=== PATIENT | female | born 1935 | race Caucasian/White ===

== ENCOUNTER 2017-11-03 11:06 | Inpatient (IN) ==
[2017-11-03] MEDS ORDERED: Orphenadrine 60 MG/2 ML VIAL IM ONE (11:14)
[2017-11-03] MEDS ORDERED: methylPREDNISolone 125 MG/2 ML VIAL IVP ONE (11:14)
--- NOTE | 2017-11-03 11:18 | Emergency Department Note ---
Disposition Clinical Impression: Lumbar stenosis, Lumbar disc disease Disposition: Admitted As Inpatient Condition: Good Referrals: Addi Laguerre [Primary Care Provider] - Forms: ED Satisfaction Letter Back Pain HPI - General Chief Complaint: ED Back Pain/Injury Stated Complaint: LUMBAR PAIN Time Seen by Provider: 11/03/17 11:09 Source: patient Mode of arrival: ambulatory Limitations: no limitations Nursing Notes Reviewed: Yes Vital Signs Reviewed: Yes - History of Present Illness HPI Narrative: Patient presents to the ED with the chief complaint of low back pain. Patient states his pain has been ongoing for years. States that she will get an episode of to a year where she will be bending over and feels something slipped and have some pain for a few weeks and then would go away. She reports it has been especially worse over the last week. No specific injury or trauma. She denies any weakness, but states is very difficult for her to walk. She does live at home alone and has been unable to care for herself recently. No urinary or bowel incontinence but she has had some constipation. Denies any headache, neck pain, changes in vision, fever, chills, chest pain, shortness of breath, pain, nausea, vomiting or diarrhea. She denies any numbness or weakness in her extremities. She does have some tingling in her feet at times. She does state that the pain is mainly lower lumbar sacral and does sometimes radiate to her buttocks, but does not extend down her leg - Related Data Home Medications Medication Instructions Recorded Confirmed Allopurinol [Zyloprim] 300 mg PO DAILY 11/03/17 11/03/17 Calcitriol 0.5 mcg PO DAILY 11/03/17 11/03/17 Furosemide [Lasix] 20 mg PO DAILY 11/03/17 11/03/17 HYDROcodone/Acet 5/325 mg [[place] 1 tab PO Q6H PRN 11/03/17 11/03/17 5-325 mg] Insulin ASPART [Novolog Flexpen] 15 unit SQ TID 11/03/17 11/03/17 Insulin DETEMIR [Levemir Flextouch] 47 unit SQ QPM 11/03/17 11/03/17 Metoprolol XL (24 HR) Succ [Toprol 50 mg PO BID 11/03/17 11/03/17 XL] Warfarin [Coumadin] 2.5 mg PO SUMOTUWETHSA 11/03/17 11/03/17 Warfarin [Coumadin] 5 mg PO FR 11/03/17 11/03/17 amLODIPine [Norvasc] 5 mg PO DAILY 11/03/17 11/03/17 Allergies Allergy/AdvReac Type Severity Reaction Status Date / Time Penicillins Allergy Rash Verified 11/03/17 11:17 Review of Systems: As reviewed in the HPI. All other systems reviewed are negative or normal. Past Medical History - Past Medical History Attestation: Yes The following information was validated with the patient. Source: patient Medical history: Reports: atrial fibrillation, diabetes, hypertension, renal disease Psychiatric history: Reports: no psych history - Social History Smoking Status: Never smoker Smokeless Tobacco Status: No Alcohol use: Reports: none Drug use: Reports: none Physical Exam - General Limitations: no limitations General appearance: alert, in no apparent distress - Head Head exam: atraumatic, normocephalic, normal inspection - Neck Neck exam: Present: normal inspection, full ROM, trachea midline - Chest Chest inspection: Present: normal inspection, symmetric chest wall rise - Respiratory Respiratory exam: Present: normal lung sounds bilaterally - Cardiovascular Cardiovascular exam: Present: regular rate, irregular rhythm, normal heart sounds - Abdominal Exam Abdominal exam: Present: soft, Non-Tender. Absent: tenderness, distention, guarding, rebound, rigidity - Extremities Exam Extremities exam: Present: normal inspection, full ROM. Absent: tenderness, pedal edema - Back Exam Back exam: Present: tenderness (mid/lower lumbar, some L paraspinous muscle tenderness but does have midline tenderness as well ), muscle spasm, vertebral tenderness, other (DTR's intact, sensation normal, antalgic gait ). Absent: normal inspection, full ROM, straight leg raise (R), straight leg raise (L) - Neurological Exam Neurological exam: Present: alert, oriented X3 - Psychiatric Psychiatric exam: Present: normal affect, normal mood - Skin Skin exam: Present: warm, dry, intact, normal color Course Course Narrative: Patient and the low back pain. No acute neurological abnormalities, but patient is elderly and has no history of trauma to the area. We will start off with a CT scan of lumbar spine and if unremarkable, We will proceed to MRI. - Reevaluation(s) Reevaluation #1: Patient's CT scan showed some lumbar stenosis and possible herniated disc. We ordered an MRI. Stat but were told it would take 6-8 hours to complete this. Patient cannot ambulate on her own and does live at home alone, so we will admit her to the hospitalist service for MRI and pain control. Vital Signs Temperature 97.4 F L 11/03/17 11:07 Pulse Rate 73 11/03/17 11:07 Respiratory Rate 16 11/03/17 11:07 Blood Pressure 142/95 11/03/17 11:07 O2 Sat by Pulse Oximetry 95 11/03/17 11:07 Temperature 97.4 F L 11/03/17 11:07 Pulse Rate 76 11/03/17 13:57 Respiratory Rate 16 11/03/17 13:57 Blood Pressure 144/77 11/03/17 13:57 O2 Sat by Pulse Oximetry 97 11/03/17 13:57 Oxygen Delivery Oxygen Delivery Room Air Back Pain/Injury - Medical Records Medical records reviewed: Yes I reviewed the patient's medical records. - Lab Data Lab results reviewed: Yes I reviewed the patient's lab results. Result diagrams: 11/03/17 11:24 11/03/17 11:24 Lab Results 11/03/17 11/03/17 11/03/17 Range/Units 11:24 11:24 12:55 WBC 7.9 (4.3-11.1) K/mcL RBC 4.94 (3.82-4.97) M/mcL Hgb 15.6 H (11.5-15.4) g/dL Hct 47.7 H (35.3-44.9) % MCV 96.6 (83.0-100.0) fL MCH 31.6 (28.0-33.3) pg MCHC 32.7 (31.6-35.5) g/dL RDW 15.6 H (11.5-14.5) % Plt Count 229 (140-400) K/mcL MPV 10.8 (9.4-12.4) fL Immature Gran % 0.3 (0-4) % Seg Neutrophils % 63.7 % Lymphocytes % 27.7 % Monocytes % 7.5 % Eosinophils % 0.5 % Basophils % 0.3 % Neutrophils # 5.0 (1.6-8.9) K/mcL Lymphocytes # 2.2 (0.6-4.6) K/mcL Monocytes # 0.6 (0.0-1.3) K/mcL Eosinophils # 0.0 (0.0-0.6) K/mcL Basophils # 0.0 (0.0-0.2) K/mcL Sodium 136 (136-145) mEq/L Potassium 3.9 (3.5-5.1) mEq/L Chloride 104 (98-107) mEq/L Carbon Dioxide 27 (23-29) mEq/L BUN 30 H (8-23) mg/dL Creatinine 1.67 H (0.60-1.20) mg/dL Est GFR ( Amer) 36 L (> 60) Est GFR (Non-Af Amer) 29 L (> 60) BUN/Creatinine Ratio 18 (6-26) Glucose 57 L (70-105) mg/dL Calculated Osmolality 286 (280-300) Calcium 10.0 (8.6-10.3) mg/dL Total Bilirubin 0.9 (0.3-1.0) mg/dL Direct Bilirubin 0.2 (0.0-0.2) mg/dL Indirect Bilirubin 0.7 (0.0-1.2) mg/dL AST 17 (13-39) Units/L ALT 11 (7-52) Units/L Alkaline Phosphatase 94 (34-104) Units/L Serum Total Protein 6.4 (6.4-8.9) g/dL Albumin 3.9 (3.5-5.7) g/dL Globulin 2.5 (2.4-3.5) g/dL Albumin/Globulin Ratio 1.6 (1.1-2.2) Urine Color Yellow (Yellow) Urine Clarity Cloudy A (Clear) Urine pH 5.5 (5.0-8.0) pH Units Ur Specific [place] 1.020 (1.010-1.025) Urine Protein Negative (Neg-Trace) mg/dL Urine Glucose (UA) Normal (Normal) mg/dL Urine Ketones Negative (Negative) mg/dL Urine Blood Negative (Negative) Urine Nitrite Negative (Negative) Urine Bilirubin Negative (Negative) Urine Urobilinogen Normal (Normal) mg/dL Ur Leukocyte Esterase Moderate H (Negative) Urine Microscopic RBC 0-3 (0-3) per hpf Urine Microscopic WBC 50-100 H (0-3) per hpf Ur Squamous Epith Cells Many H (None-Few) per lpf Urine Bacteria Few (None-Few) per hpf Hyaline Casts None Seen (None-Few) per lpf Ur Culture Indicated? NO. A (NO) - Radiology Data Radiology results reviewed: Yes I reviewed the patient's radiology results. - EKG Data EKG attestation: Yes I reviewed and interpreted this EKG. EKG results narrative: A. fib, rate 65, QRS 89, QTC 372, normal axis, no acute ischemic changes
[2017-11-03 11:37] LABS: Basophils % 0.3 %; Eosinophils % 0.5 %; Hematocrit 47.7 % (35.3-44.9); Hemoglobin 15.6 g/dL (11.5-15.4); Immature Granulocytes % 0.3 % (0-4); Lymphocytes # 2.2 K/mcL (0.6-4.6); Lymphocytes % 27.7 %; Mean Corpuscular HGB Conc 32.7 g/dL (31.6-35.5); Mean Corpuscular Hemoglobin 31.6 pg (28.0-33.3); Mean Corpuscular Volume 96.6 fL (83.0-100.0); Mean Platelet Volume 10.8 fL (9.4-12.4); Monocytes # 0.6 K/mcL (0.0-1.3); Monocytes % 7.5 %; Platelet Count 229 K/mcL (140-400); Red Blood Count 4.94 M/mcL (3.82-4.97); Red Cell Distribution Width 15.6 % (11.5-14.5); Segmented Neutrophils % 63.7 %
[2017-11-03 11:57] LABS: Albumin 3.9 g/dL (3.5-5.7); Albumin/Globulin Ratio 1.6 (1.1-2.2); Bilirubin,Direct 0.2 mg/dL (0.0-0.2); Bilirubin,Indirect 0.7 mg/dL (0.0-1.2); Bilirubin,Total 0.9 mg/dL (0.3-1.0); Globulin 2.5 g/dL (2.4-3.5); Potassium 3.9 mEq/L (3.5-5.1); Total Protein 6.4 g/dL (6.4-8.9)
[2017-11-03 13:06] LABS: Bilirubin,Urine Negative (Negative); Blood,Urine Negative (Negative); Clarity,Urine Cloudy (Clear); Color,Urine Yellow (Yellow); Glucose,Urine (UA) Normal (Normal); Ketones,Urine Negative (Negative); Leukocyte Esterase,Urine Moderate (Negative); Nitrite,Urine Negative (Negative); PH,Urine 5.5 pH Units (5.0-8.0); Protein,Urine Negative (Neg-Trace); Urobilinogen,Urine Normal (Normal)
[2017-11-03 13:08] LABS: Bacteria,Urine Few per hpf (None-Few); Hyaline Casts,Urine None Seen per lpf (None-Few); RBC,Urine 0-3 per hpf (0-3); Squamous Epithelial Cell,Urine Many per lpf (None-Few); WBC,Urine 50-100 per hpf (0-3)
--- NOTE | 2017-11-03 14:00 | Emergency Department Note ---
Disposition Clinical Impression: Lumbar stenosis, Lumbar disc disease Disposition: Admitted As Inpatient Condition: Good General Adult HPI - General Chief complaint: ED Back Pain/Injury Stated complaint: LUMBAR PAIN Time Seen by Provider: 11/03/17 11:09 Source: patient Mode of arrival: ambulatory Limitations: no limitations Nursing Notes Reviewed: Yes Vital Signs Reviewed: Yes - History of Present Illness Pain Scale: 2 - Related Data Home Medications Medication Instructions Recorded Confirmed Allopurinol [Zyloprim] 300 mg PO DAILY 11/03/17 11/03/17 Calcitriol 0.5 mcg PO DAILY 11/03/17 11/03/17 Ergocalciferol (VITAMIN D2) 50,000 unit PO 2XW 11/03/17 11/03/17 [Vitamin D2] Furosemide [Lasix] 20 mg PO DAILY 11/03/17 11/03/17 HYDROcodone/Acet 5/325 mg [[place] 1 tab PO Q6H PRN 11/03/17 11/03/17 5-325 mg] Insulin ASPART [Novolog Flexpen] 15 unit SQ TID 11/03/17 11/03/17 Insulin DETEMIR [Levemir Flextouch] 47 unit SQ QPM 11/03/17 11/03/17 Metoprolol XL (24 HR) Succ [Toprol 50 mg PO BID 11/03/17 11/03/17 XL] Warfarin [Coumadin] 2.5 mg PO SUMOTUWETHSA 11/03/17 11/03/17 Warfarin [Coumadin] 5 mg PO FR 11/03/17 11/03/17 amLODIPine [Norvasc] 5 mg PO DAILY 11/03/17 11/03/17 Allergies Allergy/AdvReac Type Severity Reaction Status Date / Time Penicillins Allergy Rash Verified 11/03/17 11:17 Past Medical History - Past Medical History Medical history: Reports: atrial fibrillation, diabetes, hypertension, renal disease Psychiatric history: Reports: no psych history - Social History Smoking Status: Never smoker Smokeless Tobacco Status: No Alcohol use: Reports: none Drug use: Reports: none Physical Exam - General Limitations: no limitations General appearance: alert, in no apparent distress Course Vital Signs Temperature 97.4 F L 11/03/17 11:07 Pulse Rate 73 11/03/17 11:07 Respiratory Rate 16 11/03/17 11:07 Blood Pressure 142/95 11/03/17 11:07 O2 Sat by Pulse Oximetry 95 11/03/17 11:07 Temperature 98.2 F 11/03/17 18:38 Pulse Rate 81 11/03/17 18:38 Respiratory Rate 16 11/03/17 18:38 Blood Pressure 148/81 11/03/17 18:38 O2 Sat by Pulse Oximetry 96 11/03/17 18:38 Oxygen Delivery Oxygen Delivery Room Air Medical Decision Making - MDM Narrative Medical decision making narrative: Lumbar Spine CT 11/03/17 11:14 IMPRESSION: 1. No acute abnormality identified of the lumbar spine. 2. Degenerative changes contribute to moderate spinal canal stenosis at L3-L4 with mild stenosis at L4-L5. D/ / Juan Reynaga MD / Juan Reynaga MD Interpreting Provider: Juan Reynaga MD 1400 hrs.: With the stenosis she said we talked about doing an MRI spoke with camera technician they said that would probably not get done in the shift see if we can bring her into the hospital and have them do it as an inpatient procedure with potential evaluation by spine. PAging hospitalist at this time. - Lab Data Result diagrams: 11/03/17 11:24 11/03/17 11:24 Lab Results 11/03/17 11/03/17 11/03/17 Range/Units 11:24 11:24 12:55 WBC 7.9 (4.3-11.1) K/mcL RBC 4.94 (3.82-4.97) M/mcL Hgb 15.6 H (11.5-15.4) g/dL Hct 47.7 H (35.3-44.9) % MCV 96.6 (83.0-100.0) fL MCH 31.6 (28.0-33.3) pg MCHC 32.7 (31.6-35.5) g/dL RDW 15.6 H (11.5-14.5) % Plt Count 229 (140-400) K/mcL MPV 10.8 (9.4-12.4) fL Immature Gran % 0.3 (0-4) % Seg Neutrophils % 63.7 % Lymphocytes % 27.7 % Monocytes % 7.5 % Eosinophils % 0.5 % Basophils % 0.3 % Neutrophils # 5.0 (1.6-8.9) K/mcL Lymphocytes # 2.2 (0.6-4.6) K/mcL Monocytes # 0.6 (0.0-1.3) K/mcL Eosinophils # 0.0 (0.0-0.6) K/mcL Basophils # 0.0 (0.0-0.2) K/mcL Sodium 136 (136-145) mEq/L Potassium 3.9 (3.5-5.1) mEq/L Chloride 104 (98-107) mEq/L Carbon Dioxide 27 (23-29) mEq/L BUN 30 H (8-23) mg/dL Creatinine 1.67 H (0.60-1.20) mg/dL Est GFR ( Amer) 36 L (> 60) Est GFR (Non-Af Amer) 29 L (> 60) BUN/Creatinine Ratio 18 (6-26) Glucose 57 L (70-105) mg/dL Calculated Osmolality 286 (280-300) Calcium 10.0 (8.6-10.3) mg/dL Total Bilirubin 0.9 (0.3-1.0) mg/dL Direct Bilirubin 0.2 (0.0-0.2) mg/dL Indirect Bilirubin 0.7 (0.0-1.2) mg/dL AST 17 (13-39) Units/L ALT 11 (7-52) Units/L Alkaline Phosphatase 94 (34-104) Units/L Serum Total Protein 6.4 (6.4-8.9) g/dL Albumin 3.9 (3.5-5.7) g/dL Globulin 2.5 (2.4-3.5) g/dL Albumin/Globulin Ratio 1.6 (1.1-2.2) Urine Color Yellow (Yellow) Urine Clarity Cloudy A (Clear) Urine pH 5.5 (5.0-8.0) pH Units Ur Specific [place] 1.020 (1.010-1.025) Urine Protein Negative (Neg-Trace) mg/dL Urine Glucose (UA) Normal (Normal) mg/dL Urine Ketones Negative (Negative) mg/dL Urine Blood Negative (Negative) Urine Nitrite Negative (Negative) Urine Bilirubin Negative (Negative) Urine Urobilinogen Normal (Normal) mg/dL Ur Leukocyte Esterase Moderate H (Negative) Urine Microscopic RBC 0-3 (0-3) per hpf Urine Microscopic WBC 50-100 H (0-3) per hpf Ur Squamous Epith Cells Many H (None-Few) per lpf Urine Bacteria Few (None-Few) per hpf Hyaline Casts None Seen (None-Few) per lpf Ur Culture Indicated? NO. A (NO) Attestation Statement - Attestation Attestation: I examined this patient and my medical decision-making was reviewed with the Resident Physician. I agree with the documented findings, disposition and treatment plan as described except to the extent set forth below. Patient seen and evaluated by Dr. Stallings and myself, I agree with his evaluation and treatment plan, supervised the care the patient's stay. Patient does not stay with lower lumbar back pain. She said no acute injury no history of falls. She has had imaging studies in the past which led to some possible stenosis. She denies any change in bowel or bladder habits with incontinence but has had some changes on her overall neurologic exam. DTRs are intact. Return to CT her spine and then determine whether she needs MRI or not. We will check lab work also. She is in agreement with this plan.
--- NOTE | 2017-11-03 17:08 | Electrocardiograph Report ---
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
[2017-11-03] MEDS ORDERED: Naloxone 0.4 MG/ML INJ IVP PRN (17:28)
--- NOTE | 2017-11-03 17:30 | Internal Med History&Physical ---
Date of Encounter: 11/03/17 Time of Encounter: 17:27 Internal Medicine - H&P: HPI Admitted From: Home Plans for Post Hospital Care: Transfer Inp Rehab Fac History of present illness: Ms. Velasco is a 82 year old female Patient With history of A. fib on Coumadin, diabetes mellitus with last A1c 7.5 has been on insulin, hypertension, CAD stage III brought to ER by family with acute on chronic low back pain. Patient has chronic low back pain but intermittently and less frequently 4-6 year but for last 2 month it has been progressively worse especially when it she bent over. This Friday she bent over to pick some stuff from the floor and then her back got caught in the pain and now she is not able to ambulate for last 3 days. She rated her pain 10 x 10, nonradiating to lower extremity. She denies any urinary or bowel incontinence, lower extremity weakness, tingling and numbness. She also denies fall but very difficult to walk after this acute event. She does live at home alone and has been unable to care for herself recently. has some constipation. Denies any headache, neck pain, changes in vision, fever , chills, chest pain, shortness of breath, pain, nausea, vomiting or diarrhea. Past Med Surg Social Fam HX - Past Medical History Medical history: atrial fibrillation, diabetes, hypertension, renal disease Psychiatric history: no psych history - Social History Smoking Status: Never smoker Smokeless Tobacco Status: No Alcohol use: none Drug use: none Internal Medicine - H&P: Meds Allopurinol [Zyloprim] 300 mg PO DAILY 11/03/17 [History] Calcitriol 0.5 mcg PO DAILY 11/03/17 [History] Ergocalciferol (VITAMIN D2) [Vitamin D2] 50,000 unit PO 2XW 11/03/17 [History] Furosemide [Lasix] 20 mg PO DAILY 11/03/17 [History] HYDROcodone/Acet 5/325 mg [[place] 5-325 mg] 1 tab PO Q6H PRN 11/03/17 [History] Insulin ASPART [Novolog Flexpen] 15 unit SQ TID 11/03/17 [History] Insulin DETEMIR [Levemir Flextouch] 47 unit SQ QPM 11/03/17 [History] Metoprolol XL (24 HR) Succ [Toprol XL] 50 mg PO BID 11/03/17 [History] Warfarin [Coumadin] 2.5 mg PO SUMOTUWETHSA 11/03/17 [History] Warfarin [Coumadin] 5 mg PO FR 11/03/17 [History] amLODIPine [Norvasc] 5 mg PO DAILY 11/03/17 [History] 3 Allergy/AdvReac Type Severity Reaction Status Date / Time Penicillins Allergy Rash Verified 11/03/17 11:17 All Systems PM: A 10-system review of systems was performed and is negative for pertinent findings except as documented above in the HPI. - Constitutional Vitals: Temp Pulse Resp BP Pulse Ox 97.9 F 82 16 153/77 91 11/03/17 16:53 11/03/17 16:53 11/03/17 16:53 11/03/17 16:53 11/03/17 16:53 Exam: General appearance: Moderate distress due to pain. Family at bedside., A&O X 3 Head exam: Atraumatic Eye exam: EOMI, PERRLA ENT exam: Moist oral mucosa Neck nontender, supple Respiratory exam: Clear to auscultation bilaterally Cardiovascular exam: Regular rate and rhythm, no systolic murmur Abdominal exam: Soft, nontender, nondistended, positive bowel sounds Extremities exam: No calf tenderness, no pedal edema Present: Spine-limited range of motion in all directions. Left SLR positive. Muscle spasm and tenderness in lumbosacral area. Skin-no rash, warm, dry, intact Neurological exam: Alert, awake, oriented 3, CN II-XII intact, no focal deficits. No facial droop. Normal speech. Not able to walk due to pain Internal Med - H&P Results - Labs CBC & Chem 7: 11/03/17 11:24 11/03/17 11:24 - Assessment and plan (1) Low back pain associated with a spinal disorder other than radiculopathy or spinal stenosis Current Visit: Yes Status: Acute Assessment and plan: Acute on chronic back pain with muscle spasm. CT lumbar with spinal stenosis. MRI spine order but result is awaited. Symptomatic treatment with pain medicine narcotics, muscle relaxants. Consulted his spine surgeon Dr. Lake. Fall precaution (2) Hypertension Current Visit: Yes Status: Acute Assessment and plan: Close monitoring. Continue home medicine. Qualifiers: Qualified Code(s): I10 - Essential (primary) hypertension (3) Afib Current Visit: No Status: Acute Assessment and plan: RVR. Continue home medicine. INR is stat order. Will continue Coumadin. If any plan for surgery then will hold the Coumadin. Qualifiers: Atrial fibrillation type: chronic Qualified Code(s): I48.2 - Chronic atrial fibrillation (4) ESTRELLITA (acute kidney injury) Current Visit: Yes Status: Acute Assessment and plan: Acute on CKG. Slight raise in creatinine level. Close monitoring of BMP and avoid nephrotoxic drugs. (5) DVT prophylaxis Current Visit: Yes Status: Acute Assessment and plan: SCDs. Coumadin (6) Diabetes mellitus Current Visit: Yes Status: Acute Assessment and plan: Accu-Chek sliding scale insulin, diabetic diet. Qualifiers: Diabetes mellitus type: type 2 Diabetes mellitus fdc insulin use: with long term care pharmacist use Diabetes mellitus complication status: with neurologic complications Qualified Code(s): E11.40 - Type 2 diabetes mellitus with diabetic neuropathy, unspecified; Z79.4 - prison (current) use of insulin; Z79.4 - long term care pharmacist (current) use of insulin; Z79.4 - prison (current) use of insulin; Z79.4 - prison (current) use of insulin - Time Spent With Patient Total time spent is greater than 50% in coordination of care (as documented) at patient's floor/unit and/or counseling patient: 25 - 35 minutes
[2017-11-03] MEDS ORDERED: tiZANidine 4 MG TABLET PO PRN (17:43)
[2017-11-03] MEDS ORDERED: Sennosides/Docusate Sodium TABLET PO PRN (17:47)
[2017-11-03] MEDS ORDERED: D5% in Water 1,000 ML IVC PRN (17:56)
[2017-11-03] MEDS ORDERED: Dextrose Gel 15 GM/37.5 ML TUBE PO PRN ×2 (17:56)
[2017-11-03] MEDS ORDERED: *HR* Dextrose 50 % in Water (Syg) 50 ML SYRINGE IVP PRN (17:56)
[2017-11-03] MEDS ORDERED: Insulin LISPRO 300 UNITS/3 ML VIAL SQ SCH (18:00)
[2017-11-03 18:15] LABS: INR 3.6; Prothrombin Time 40.4 Seconds (9.4-12.1)
[2017-11-03] MEDS: Cholecalciferol (D-3) 1,000 UNIT TABLET PO SCH (18:47)
[2017-11-03 19:24] LABS: Estimated Average Glucose 160 mg/dl; Hemoglobin A1C 7.2 %
[2017-11-03] MEDS: Metoprolol XL (24 HR) Succ 50 MG TAB.ER.24H PO SCH (20:10)
[2017-11-03] MEDS: Insulin DETEMIR 100 UNIT/ML X5UNITS SQ SCH (20:11)
[2017-11-03] MEDS ORDERED: Warfarin perPT PO PRN (20:27)
[2017-11-03] MEDS: Insulin LISPRO 300 UNITS/3 ML VIAL SQ SCH (21:58)
[2017-11-03] MEDS: *HR* OxyCODONE/APAP 5/325 TABLET PO PRN (23:34)
[2017-11-04 05:18] LABS: Hemoglobin 15.9 g/dL (11.5-15.4); Immature Granulocytes % 0.3 % (0-4); Lymphocytes # 1.1 K/mcL (0.6-4.6); Lymphocytes % 15.2 %; Mean Corpuscular HGB Conc 33.1 g/dL (31.6-35.5); Mean Corpuscular Hemoglobin 31.7 pg (28.0-33.3); Mean Corpuscular Volume 95.6 fL (83.0-100.0); Monocytes % 0.3 %; Neutrophils # 5.8 K/mcL (1.6-8.9); Platelet Count 230 K/mcL (140-400); Red Blood Count 5.02 M/mcL (3.82-4.97); Red Cell Distribution Width 15.3 % (11.5-14.5); Segmented Neutrophils % 84.2 %
[2017-11-04 05:26] LABS: Prothrombin Time 33.3 Seconds (9.4-12.1)
[2017-11-04 05:39] LABS: Potassium 4.2 mEq/L (3.5-5.1)
[2017-11-04] MEDS: Metoprolol XL (24 HR) Succ 50 MG TAB.ER.24H PO SCH ×2 (08:07→20:50)
[2017-11-04] MEDS: Furosemide 20 MG TABLET PO SCH (08:07)
[2017-11-04] MEDS: Insulin LISPRO 300 UNITS/3 ML VIAL SQ SCH ×7 (08:07→20:50)
[2017-11-04] MEDS: Cholecalciferol (D-3) 1,000 UNIT TABLET PO SCH (08:07)
[2017-11-04] MEDS: amLODIPine 5 MG TABLET PO SCH (08:07)
--- NOTE | 2017-11-04 10:05 | Internal Med Progress Note ---
<Adri Zarate - Last Filed: 11/04/17 17:21> Date of Encounter: 11/04/17 - Assessment and plan (1) Afib Current Visit: No Status: Acute Qualifiers: Atrial fibrillation type: chronic Qualified Code(s): I48.2 - Chronic atrial fibrillation (2) Low back pain associated with a spinal disorder other than radiculopathy or spinal stenosis Current Visit: Yes Status: Acute (3) Hypertension Current Visit: Yes Status: Acute Qualifiers: Qualified Code(s): I10 - Essential (primary) hypertension (4) DVT prophylaxis Current Visit: Yes Status: Acute (5) ESTRELLITA (acute kidney injury) Current Visit: Yes Status: Acute (6) Diabetes mellitus Current Visit: Yes Status: Acute Qualifiers: Diabetes mellitus type: type 2 Diabetes mellitus penitentiary insulin use: with middle or intermediate school principal use Diabetes mellitus complication status: with neurologic complications Qualified Code(s): E11.40 - Type 2 diabetes mellitus with diabetic neuropathy, unspecified; Z79.4 - [facility] (current) use of insulin; Z79.4 - [facility] (current) use of insulin; Z79.4 - [facility] (current) use of insulin; Z79.4 - intermodal dispatcher (current) use of insulin - Time Spent With Patient Total time spent is greater than 50% in coordination of care (as documented) at patient's floor/unit and/or counseling patient: - Constitutional Vitals: Temp Pulse Resp BP Pulse Ox 97.5 F L 59 18 128/77 97 11/04/17 14:00 11/04/17 14:00 11/04/17 14:00 11/04/17 14:00 11/04/17 14:00 Internal Medicine: Result - Labs CBC & Chem 7: 11/04/17 04:43 11/04/17 04:43 Labs: Short CBC 11/04/17 Range/Units 04:43 WBC 6.9 (4.3-11.1) K/mcL Hgb 15.9 H (11.5-15.4) g/dL Hct 48.0 H (35.3-44.9) % Plt Count 230 (140-400) K/mcL Neutrophils # 5.8 (1.6-8.9) K/mcL BMP 11/04/17 04:43 Sodium 133 L Potassium 4.2 Chloride 101 Carbon Dioxide 23 BUN 36 H Creatinine 1.81 H Glucose 351 H Calcium 10.0 - ABG Interpretation ABG results: PT/INR, D-dimer PT 33.3 Seconds (9.4-12.1) H 11/04/17 04:43 Consult Discharge Plan - Plan Referrals: Addi Laguerre [Primary Care Provider] - - Attending Attestation I performed a history and physical examination of the patient and discussed his/ her management with the resident. I reviewed the residents note and agree with the documented findings and plan of care. <Laila Moran - Last Filed: 11/04/17 21:34> Date of Encounter: 11/04/17 Time of Encounter: 09:50 - Assessment and plan (1) Low back pain associated with a spinal disorder other than radiculopathy or spinal stenosis Current Visit: Yes Status: Acute Assessment and plan: -Acute on chronic back pain with muscle spasm. - CT lumbar with spinal stenosis. MRI spine order but result is awaited. - Symptomatic treatment with pain medicine narcotics, muscle relaxants. -Consulted his spine surgeon Dr. Lake who is evaluated and is pursuing conservative management. Recommends aggressive PT/OT while inpatient. - Fall precaution (2) Afib Current Visit: Yes Status: Chronic Assessment and plan: Rate controlled in 60-70s Home coumadin, INR 3.0 Continue hhome meds. Qualifiers: Atrial fibrillation type: chronic Qualified Code(s): I48.2 - Chronic atrial fibrillation (3) Hypertension Current Visit: Yes Status: Chronic Assessment and plan: Close monitoring. Continue home medicine. 128/77 Qualifiers: Hypertension type: essential hypertension Qualified Code(s): I10 - Essential (primary) hypertension (4) ESTRELLITA (acute kidney injury) Current Visit: Yes Status: Acute Assessment and plan: - Acute on CKD. - Slight raise in creatinine level, most recently 1.81. Baseline near 1.5-1.7 - Close monitoring of BMP and avoid nephrotoxic drugs. (5) Diabetes mellitus Current Visit: Yes Status: Chronic Assessment and plan: Accu-Chek sliding scale insulin, diabetic diet. BS of 351 a1c of 7.2% on 11/03/17 Qualifiers: Diabetes mellitus type: type 2 Diabetes mellitus penitentiary insulin use: with middle or intermediate school principal use Diabetes mellitus complication status: with neurologic complications Diabetes mellitus complication detail: with unspecified neuropathy Qualified Code(s): E11.40 - Type 2 diabetes mellitus with diabetic neuropathy, unspecified; Z79.4 - intermodal dispatcher (current) use of insulin; Z79.4 - intermodal dispatcher (current) use of insulin; Z79.4 - [facility] (current) use of insulin; Z79.4 - intermodal dispatcher (current) use of insulin (6) DVT prophylaxis Current Visit: Yes Status: Acute Assessment and plan: SCDs. Coumadin, therapeutic. - Time Spent With Patient Total time spent is greater than 50% in coordination of care (as documented) at patient's floor/unit and/or counseling patient: 25 - 35 minutes - Subjective Interval history: Patient seen and examined at bedside this morning. Shes states that she feels a little better this morning. She is still having some back pain but it has improved since presentation. No other complaints. Denies nausea, vomiting, fevers, chills, chest pain, SOB. - Constitutional Vitals: Temp Pulse Resp BP Pulse Ox 97.5 F L 60 16 152/79 97 11/04/17 07:26 11/04/17 07:26 11/04/17 07:26 11/04/17 07:26 11/04/17 07:26 General appearance: Present: A&O X 3, no acute distress - Head Head exam: Present: atraumatic, normal inspection, normocephalic - ENT ENT exam: Present: mucous membranes moist, normal exam - Respiratory Respiratory exam: Present: CTAB. Absent: rales, respiratory distress, rhonchi, wheezes - Cardiovascular Cardiovascular exam: Present: RRR, +S1, +S2. Absent: diastolic murmur - GI/Abdominal GI/Abdominal exam: Present: soft. Absent: distended, tenderness - Extremities Exam Extremities exam: Present: normal inspection, warm. Absent: pedal edema - Back Exam Back exam: Present: normal inspection. Absent: muscle spasm - Neurological Exam Neurological exam: Present: oriented X3, no focal deficits, strengths equal and symetr throughout. Absent: speech deficit - Psychiatric Psychiatric exam: Present: normal affect, normal mood Internal Medicine: Result - Labs CBC & Chem 7: 11/04/17 04:43 11/04/17 04:43 Labs: Short CBC 11/04/17 Range/Units 04:43 WBC 6.9 (4.3-11.1) K/mcL Hgb 15.9 H (11.5-15.4) g/dL Hct 48.0 H (35.3-44.9) % Plt Count 230 (140-400) K/mcL Neutrophils # 5.8 (1.6-8.9) K/mcL BMP 11/04/17 04:43 Sodium 133 L Potassium 4.2 Chloride 101 Carbon Dioxide 23 BUN 36 H Creatinine 1.81 H Glucose 351 H Calcium 10.0 - ABG Interpretation ABG results: PT/INR, D-dimer PT 33.3 Seconds (9.4-12.1) H 11/04/17 04:43
[2017-11-04] MEDS: *HR* OxyCODONE/APAP 5/325 TABLET PO PRN ×2 (10:09→21:00)
--- NOTE | 2017-11-04 15:38 | Spinal Consult Note ---
Date of Encounter: 11/04/17 Time of Encounter: 12:36 Assessment and Plan (1) Lumbar stenosis Current Visit: Yes Status: Acute She is lying comfortably in bed in mild distress secondary to back pain. Afebrile vital signs stable. She is neurovascularly intact with regard to her bilateral lower extremities. She has negative straight leg raise. She fires all lower extremity motor groups with good strength. Her hips move symmetrically. She has no clonus. There are no pathologic reflexes. She has no significant tenderness to palpation of the spinous processes in the lumbar spine. MRI of the lumbar spine reveals multilevel degenerative changes. There is areas of disc bulges with mild multilevel stenosis seen. There is no fractures or malalignment seen. Impression: 1) lumbar spondylosis 2) lumbar stenosis 3) acute exacerbation of back pain Plan: She has no acute surgical indications. I suggested in-house formal physical therapy and low back program to continue as an outpatient basis. She is to continue with analgesics per the hospitalist service. I have specified course strengthening and lower extremity strengthening as well as modalities for her physical therapy/rehabilitation. She should follow-up in the [facility] with Dr. Self or Eulogio for outpatient rehabilitation program. She may consider lumbar epidural steroid injections as an outpatient at that time in consultation. The patient is amenable to the plan and will proceed. Qualifiers: Neurogenic claudication status: without neurogenic claudication Qualified Code(s): M48.061 - Spinal stenosis, lumbar region without neurogenic claudication History of Present Illness Chief complaint: Back pain HPI: Ms. Velasco is a 82 year old female Who has a several year history of intermittent exacerbations and remissions of severe back pain. Her recent episode happened several days ago it where she felt severe mid back and bilateral posterior buttock pain which interfered with her ability to walk secondary to pain. She denies radicular symptoms. She rates the pain a 9 on a pain scale the time of admission. She is brought to the emergency department for evaluated and admitted for pain control and management. She denies any fevers or chills, radicular symptoms and lower extremities, or bowel bladder symptomatology. We are asked to see regarding potential treatments for her condition. Past Med Surg Social Fam HX - Past Medical History Medical history: atrial fibrillation, diabetes, hypertension, renal disease Psychiatric history: no psych history - Social History Smoking Status: Never smoker Smokeless Tobacco Status: No Alcohol use: none Drug use: none - Family History Mother History Unknown: Yes Medications and Allergies Allopurinol [Zyloprim] 300 mg PO DAILY 11/03/17 [History] Calcitriol 0.5 mcg PO DAILY 11/03/17 [History] Ergocalciferol (VITAMIN D2) [Vitamin D2] 50,000 unit PO 2XW 11/03/17 [History] Furosemide [Lasix] 20 mg PO DAILY 11/03/17 [History] HYDROcodone/Acet 5/325 mg [[place] 5-325 mg] 1 tab PO Q6H PRN 11/03/17 [History] Insulin ASPART [Novolog Flexpen] 15 unit SQ TID 11/03/17 [History] Insulin DETEMIR [Levemir Flextouch] 47 unit SQ QPM 11/03/17 [History] Metoprolol XL (24 HR) Succ [Toprol XL] 50 mg PO BID 11/03/17 [History] Warfarin [Coumadin] 2.5 mg PO SUMOTUWETHSA 11/03/17 [History] Warfarin [Coumadin] 5 mg PO FR 11/03/17 [History] amLODIPine [Norvasc] 5 mg PO DAILY 11/03/17 [History] 3 Allergy/AdvReac Type Severity Reaction Status Date / Time Penicillins Allergy Rash Verified 11/03/17 11:17 Results - Labs Result Diagrams: 11/04/17 04:43 11/04/17 04:43 Labs: Abnormal lab results RBC 5.02 M/mcL (3.82-4.97) H 11/04/17 04:43 Hgb 15.9 g/dL (11.5-15.4) H 11/04/17 04:43 Hct 48.0 % (35.3-44.9) H 11/04/17 04:43 RDW 15.3 % (11.5-14.5) H 11/04/17 04:43 PT 33.3 Seconds (9.4-12.1) H 11/04/17 04:43 Sodium 133 mEq/L (136-145) L 11/04/17 04:43 BUN 36 mg/dL (8-23) H 11/04/17 04:43 Creatinine 1.81 mg/dL (0.60-1.20) H 11/04/17 04:43 Est GFR ( Amer) 32 (> 60) L 11/04/17 04:43 Est GFR (Non-Af Amer) 27 (> 60) L 11/04/17 04:43 Glucose 351 mg/dL (70-105) H 11/04/17 04:43 POC Glucose 333 mg/dL (70-99) H 11/04/17 10:50 Hemoglobin A1c 7.2 % (-5.6) H 11/03/17 11:24 Urine Clarity Cloudy (Clear) A 11/03/17 12:55 Ur Leukocyte Esterase Moderate (Negative) H 11/03/17 12:55 Urine Microscopic WBC 50-100 per hpf (0-3) H 11/03/17 12:55 Ur Squamous Epith Cells Many per lpf (None-Few) H 11/03/17 12:55 Ur Culture Indicated? NO. (NO) A 11/03/17 12:55 H & H 11/04/17 Range/Units 04:43 Hgb 15.9 H (11.5-15.4) g/dL Hct 48.0 H (35.3-44.9) % All other labs normal. Consult Discharge Plan - Plan Referrals: Addi Laguerre [Primary Care Provider] -
[2017-11-04] MEDS ORDERED: *HR* Warfarin 2.5 MG TABLET PO ONE (18:00)
[2017-11-04] MEDS: Insulin DETEMIR 100 UNIT/ML X5UNITS SQ SCH (18:00)
[2017-11-04] MEDS ORDERED: *HR* Warfarin 2.5 MG TABLET PO SCH (18:00)
[2017-11-05 05:08] LABS: Hematocrit 45.6 % (35.3-44.9); Hemoglobin 14.8 g/dL (11.5-15.4); Mean Corpuscular HGB Conc 32.5 g/dL (31.6-35.5); Mean Corpuscular Hemoglobin 31.5 pg (28.0-33.3); Mean Platelet Volume 11.2 fL (9.4-12.4); Platelet Count 228 K/mcL (140-400); Red Cell Distribution Width 15.6 % (11.5-14.5)
[2017-11-05 05:25] LABS: Prothrombin Time 33.1 Seconds (9.4-12.1)
[2017-11-05 05:29] LABS: Calcium 10.3 mg/dL (8.6-10.3); Potassium 4.7 mEq/L (3.5-5.1)
[2017-11-05] MEDS: Furosemide 20 MG TABLET PO SCH (08:03)
[2017-11-05] MEDS: Insulin LISPRO 300 UNITS/3 ML VIAL SQ SCH ×7 (08:04→23:32)
[2017-11-05] MEDS: Cholecalciferol (D-3) 1,000 UNIT TABLET PO SCH (08:04)
[2017-11-05] MEDS: amLODIPine 5 MG TABLET PO SCH (08:04)
[2017-11-05] MEDS: Metoprolol XL (24 HR) Succ 50 MG TAB.ER.24H PO SCH ×2 (08:07→23:02)
[2017-11-05] MEDS: *HR* OxyCODONE/APAP 5/325 TABLET PO PRN ×2 (11:00→18:47)
[2017-11-05] MEDS ORDERED: 0.9 % Sodium Chloride 500 ML IVC SCH (11:30)
[2017-11-05] MEDS ORDERED: D5% in Water 1,000 ML IVC PRN (11:46)
[2017-11-05] MEDS ORDERED: Dextrose Gel 15 GM/37.5 ML TUBE PO PRN ×2 (11:46)
[2017-11-05] MEDS ORDERED: *HR* Dextrose 50 % in Water (Syg) 50 ML SYRINGE IVP PRN (11:46)
--- NOTE | 2017-11-05 16:48 | Internal Med Progress Note ---
<Laila Moran - Last Filed: 11/05/17 21:13> Date of Encounter: 11/05/17 Time of Encounter: 15:00 - Assessment and plan (1) Low back pain associated with a spinal disorder other than radiculopathy or spinal stenosis Current Visit: Yes Status: Acute Assessment and plan: -Acute on chronic back pain with muscle spasm - CT lumbar with spinal stenosis. - MRI spine showing mild multilevel degenerative disc disease in lumbar spine - continue symptomatic treatment with pain medicine, narcotics, muscle relaxants. -Spinal surgery (Dr. Lake) recommends conservative management--Aggressive PT/ OT while inpatient; f/u with Dr. Self as outpatient; consider epidural steroid injections. - Evaluated by PT, recommend continued PT during hospitalization and inpatient rehab/swing bed after discharge - Fall precaution (2) Afib Current Visit: Yes Status: Chronic Assessment and plan: Rate controlled in 60-70s Continue coumadin, INR 3.0 Continue home meds Qualifiers: Atrial fibrillation type: chronic Qualified Code(s): I48.2 - Chronic atrial fibrillation (3) Hypertension Current Visit: Yes Status: Chronic Assessment and plan: Controlled Continue home medicine. 147 Qualifiers: Hypertension type: essential hypertension Qualified Code(s): I10 - Essential (primary) hypertension (4) ESTRELLITA (acute kidney injury) Current Visit: Yes Status: Acute Assessment and plan: - Acute on CKD with baseline near 1.6 - Creatinine level 1.88 - Gentle IV hydration 500mL normal saline - Hold lasix for now - Recheck Cr on morning BMP and avoid nephrotoxic drugs. (5) DVT prophylaxis Current Visit: Yes Status: Acute Assessment and plan: EPCDs Coumadin @ therapeutic level (6) Diabetes mellitus Current Visit: Yes Status: Chronic Assessment and plan: Accu-Chek Increase sliding scale insulin to medium corrective dose, glucose this morning 242 Diabetic diet a1c of 7.2% on 11/03/17 Qualifiers: Diabetes mellitus type: type 2 Diabetes mellitus [facility] insulin use: with [facility] use Diabetes mellitus complication status: with neurologic complications Diabetes mellitus complication detail: with unspecified neuropathy Qualified Code(s): E11.40 - Type 2 diabetes mellitus with diabetic neuropathy, unspecified; Z79.4 - intermediate manager (current) use of insulin; Z79.4 - custodial (current) use of insulin; Z79.4 - intermediate manager (current) use of insulin; Z79.4 - intermediate manager (current) use of insulin - Time Spent With Patient Total time spent is greater than 50% in coordination of care (as documented) at patient's floor/unit and/or counseling patient: - Subjective Interval history: Patient seen and examined this morning. She is doing well this morning and endorses no complaints. Denies nausea, vomiting, fevers, chills, chest pain, SOB. - Constitutional Vitals: Temp Pulse Resp BP Pulse Ox 97.7 F 74 18 152/77 96 11/05/17 16:09 11/05/17 16:09 11/05/17 16:09 11/05/17 16:09 11/05/17 16:09 General appearance: Present: A&O X 3, no acute distress Exam: General: No acute distress, sitting in chair at bedside HEENT: head normocephalic/atraumatic, EOMI, PERRL Neck: Supple Cardio: Distant heart sounds, regular rate,, +S1/S2 Pulm: CTAB, no wheezing, rhonchi, rales. Normal respiratory effort. Abdomen: soft, BS+, nontender, nondistended Extremities: No LE edema, no cyanosis, no clubbing Back: normal appearance on inspection Neuro: AAOx3, no focal deficit, mentation intact, moves extremities spontaneously MSK: no visible deformities Skin: clean, dry, intact, no visible rashes Psych: Appropriate mood and affect. Answers questions appropriately. Cooperative with exam Internal Medicine: Result - Labs CBC & Chem 7: 11/05/17 04:31 11/05/17 04:31 - ABG Interpretation ABG results: PT/INR, D-dimer PT 33.1 Seconds (9.4-12.1) H 11/05/17 04:31 Consult Discharge Plan - Plan Referrals: Aneesh Krishnan MD [Non-Partnered Physician] - 12/05/17 9:30 am (Please arrive 15 minutes prior to your scheduled appointment time.) Addi Laguerre [Primary Care Provider] - 11/17/17 11:30 am <Adri Zarate - Last Filed: 11/06/17 20:18> Date of Encounter: 11/06/17 - Assessment and plan (1) Afib Current Visit: Yes Status: Chronic Qualifiers: Atrial fibrillation type: chronic Qualified Code(s): I48.2 - Chronic atrial fibrillation (2) Low back pain associated with a spinal disorder other than radiculopathy or spinal stenosis Current Visit: Yes Status: Acute (3) Hypertension Current Visit: Yes Status: Chronic Qualifiers: Hypertension type: essential hypertension Qualified Code(s): I10 - Essential (primary) hypertension (4) DVT prophylaxis Current Visit: Yes Status: Acute (5) ESTRELLITA (acute kidney injury) Current Visit: Yes Status: Acute (6) Diabetes mellitus Current Visit: Yes Status: Chronic Qualifiers: Diabetes mellitus type: type 2 Diabetes mellitus director long term care insulin use: with director long term care use Diabetes mellitus complication status: with neurologic complications Diabetes mellitus complication detail: with unspecified neuropathy Qualified Code(s): E11.40 - Type 2 diabetes mellitus with diabetic neuropathy, unspecified; Z79.4 - intermediate manager (current) use of insulin; Z79.4 - custodial (current) use of insulin; Z79.4 - custodial (current) use of insulin; Z79.4 - custodial (current) use of insulin - Time Spent With Patient Total time spent is greater than 50% in coordination of care (as documented) at patient's floor/unit and/or counseling patient: - Constitutional Vitals: Temp Pulse Resp BP Pulse Ox 98.1 F 67 15 161/79 92 11/06/17 19:16 11/06/17 19:16 11/06/17 19:16 11/06/17 19:16 11/06/17 19:16 Internal Medicine: Result - Labs CBC & Chem 7: 11/06/17 06:06 11/06/17 06:06 Labs: Short CBC 11/06/17 Range/Units 06:06 WBC 11.1 (4.3-11.1) K/mcL Hgb 14.6 (11.5-15.4) g/dL Hct 44.6 (35.3-44.9) % Plt Count 229 (140-400) K/mcL Neutrophils # 7.9 (1.6-8.9) K/mcL BMP 11/06/17 06:06 Sodium 140 Potassium 4.0 Chloride 106 Carbon Dioxide 27 BUN 48 H Creatinine 1.70 H Glucose 98 Calcium 9.9 - ABG Interpretation ABG results: PT/INR, D-dimer PT 33.6 Seconds (9.4-12.1) H 11/06/17 06:06 - Attending Attestation I performed a history and physical examination of the patient and discussed his/ her management with the resident. I reviewed the residents note and agree with the documented findings and plan of care.
[2017-11-05] MEDS: Insulin DETEMIR 100 UNIT/ML X5UNITS SQ SCH (17:47)
[2017-11-05] MEDS ORDERED: *HR* Warfarin 2.5 MG TABLET PO ONE (18:00)
[2017-11-06 07:05] LABS: Basophils % 0.2 %; Eosinophils # 0.1 K/mcL (0.0-0.6); Eosinophils % 0.6 %; Hematocrit 44.6 % (35.3-44.9); Hemoglobin 14.6 g/dL (11.5-15.4); Immature Granulocytes % 0.5 % (0-4); Lymphocytes # 2.1 K/mcL (0.6-4.6); Lymphocytes % 19.2 %; Mean Corpuscular HGB Conc 32.7 g/dL (31.6-35.5); Mean Corpuscular Hemoglobin 31.5 pg (28.0-33.3); Mean Corpuscular Volume 96.3 fL (83.0-100.0); Mean Platelet Volume 11.4 fL (9.4-12.4); Monocytes # 0.9 K/mcL (0.0-1.3); Monocytes % 8.2 %; Neutrophils # 7.9 K/mcL (1.6-8.9); Platelet Count 229 K/mcL (140-400); Red Blood Count 4.63 M/mcL (3.82-4.97); Red Cell Distribution Width 15.9 % (11.5-14.5); Segmented Neutrophils % 71.3 %
[2017-11-06 07:08] LABS: Calcium 9.9 mg/dL (8.6-10.3); Prothrombin Time 33.6 Seconds (9.4-12.1)
[2017-11-06] MEDS: Insulin LISPRO 300 UNITS/3 ML VIAL SQ SCH ×6 (08:22→21:53)
--- NOTE | 2017-11-06 09:46 | Internal Med Progress Note ---
<Laila Moran - Last Filed: 11/06/17 17:54> Date of Encounter: 11/06/17 Time of Encounter: 09:00 - Assessment and plan (1) Low back pain associated with a spinal disorder other than radiculopathy or spinal stenosis Current Visit: Yes Status: Acute Assessment and plan: -Acute on chronic back pain with muscle spasm - CT lumbar with spinal stenosis. - MRI spine showing mild multilevel degenerative disc disease in lumbar spine - Spinal surgery (Dr. Lake) recommends conservative management--Aggressive PT /OT while inpatient; f/u with Dr. Self as outpatient; consider epidural steroid injections. - Continued PT during hospitalization - Anticipate d/c to [facility] Friday for inpatient rehab/swing bed (2) Afib Current Visit: Yes Status: Chronic Assessment and plan: Rate controlled Continue coumadin, INR 3.0 Continue home meds Qualifiers: Atrial fibrillation type: chronic Qualified Code(s): I48.2 - Chronic atrial fibrillation (3) Hypertension Current Visit: Yes Status: Chronic Assessment and plan: Controlled Continue home medicine. 128/69 Qualifiers: Hypertension type: essential hypertension Qualified Code(s): I10 - Essential (primary) hypertension (4) ESTRELLITA (acute kidney injury) Current Visit: Yes Status: Acute Assessment and plan: - Acute on CKD with baseline near 1.6 - Creatinine level 1.70 - Hold lasix for now - Recheck Cr on morning BMP and avoid nephrotoxic drugs. 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 insulin use: with [facility] use Diabetes mellitus complication status: with neurologic complications Diabetes mellitus complication detail: with unspecified neuropathy Qualified Code(s): E11.40 - Type 2 diabetes mellitus with diabetic neuropathy, unspecified; Z79.4 - terminal operator (current) use of insulin; Z79.4 - [facility] (current) use of insulin; Z79.4 - [facility] (current) use of insulin; Z79.4 - [facility] (current) use of insulin (6) DVT prophylaxis Current Visit: Yes Status: Acute Assessment and plan: EPCDs Coumadin @ therapeutic level - Time Spent With Patient Total time spent is greater than 50% in coordination of care (as documented) at patient's floor/unit and/or counseling patient: - Subjective Interval history: Patient seen and examined this morning. She is sitting in bedside chair and feels she is doing well overall. Her low back pain has improved since admission. Denies nausea, vomiting, fevers, chills, chest pain, SOB. - Constitutional Vitals: Temp Pulse Resp BP Pulse Ox 97.7 F 80 14 131/73 93 11/06/17 09:05 11/06/17 09:05 11/06/17 09:05 11/06/17 09:05 11/06/17 09:05 General appearance: Present: A&O X 3, no acute distress Exam: General: pleasant, No acute distress, sitting in bedside chair doing crossword puzzle HEENT: head normocephalic/atraumatic, EOMI, PERRL, moist mucus membranes, Neck: Supple, no lymphadenopathy, FROM Cardio: irregular rhythm, no murmurs, +S1/S2 Pulm: CTAB, no wheezing, rhonchi, rales. Normal respiratory effort. Abdomen: soft, nontender, BS+, no rebound, rigidity, guarding, distention Extremities: No LE edema, no calf tenderness, no cyanosis, DP pulses 2+ bilaterally Neuro: AAOx3, no focal deficit, mentation intact, CN II-XII grossly intact, moves extremities spontaneously MSK: Strength 5/5 throughout, no visible deformities Skin: clean, dry, intact, no visible rashes Psych: Appropriate mood and affect. Answers questions appropriately. Cooperative with exam Internal Medicine: Result - Labs CBC & Chem 7: 11/06/17 06:06 11/06/17 06:06 Labs: Short CBC 11/06/17 Range/Units 06:06 WBC 11.1 (4.3-11.1) K/mcL Hgb 14.6 (11.5-15.4) g/dL Hct 44.6 (35.3-44.9) % Plt Count 229 (140-400) K/mcL Neutrophils # 7.9 (1.6-8.9) K/mcL BMP 11/06/17 06:06 Sodium 140 Potassium 4.0 Chloride 106 Carbon Dioxide 27 BUN 48 H Creatinine 1.70 H Glucose 98 Calcium 9.9 - ABG Interpretation ABG results: PT/INR, D-dimer PT 33.6 Seconds (9.4-12.1) H 11/06/17 06:06 Consult Discharge Plan - Plan Referrals: Aneesh Krishnan MD [Non-Partnered Physician] - 12/05/17 9:30 am (Please arrive 15 minutes prior to your scheduled appointment time.) Addi Laguerre [Primary Care Provider] - 11/17/17 11:30 am <Adri Zarate - Last Filed: 11/06/17 20:37> Date of Encounter: 11/06/17 - Assessment and plan (1) Afib Current Visit: Yes Status: Chronic Qualifiers: Atrial fibrillation type: chronic Qualified Code(s): I48.2 - Chronic atrial fibrillation (2) Low back pain associated with a spinal disorder other than radiculopathy or spinal stenosis Current Visit: Yes Status: Acute (3) Hypertension Current Visit: Yes Status: Chronic Qualifiers: Hypertension type: essential hypertension Qualified Code(s): I10 - Essential (primary) hypertension (4) DVT prophylaxis Current Visit: Yes Status: Acute (5) ESTRELLITA (acute kidney injury) Current Visit: Yes Status: Acute (6) Diabetes mellitus Current Visit: Yes Status: Chronic Qualifiers: Diabetes mellitus type: type 2 Diabetes mellitus [facility] insulin use: with [facility] use Diabetes mellitus complication status: with neurologic complications Diabetes mellitus complication detail: with unspecified neuropathy Qualified Code(s): E11.40 - Type 2 diabetes mellitus with diabetic neuropathy, unspecified; Z79.4 - [facility] (current) use of insulin; Z79.4 - [facility] (current) use of insulin; Z79.4 - terminal operator (current) use of insulin; Z79.4 - terminal operator (current) use of insulin - Time Spent With Patient Total time spent is greater than 50% in coordination of care (as documented) at patient's floor/unit and/or counseling patient: - Constitutional Vitals: Temp Pulse Resp BP Pulse Ox 98.1 F 67 15 161/79 92 11/06/17 19:16 11/06/17 19:16 11/06/17 19:16 11/06/17 19:16 11/06/17 19:16 Internal Medicine: Result - Labs CBC & Chem 7: 11/06/17 06:06 11/06/17 06:06 Labs: Short CBC 11/06/17 Range/Units 06:06 WBC 11.1 (4.3-11.1) K/mcL Hgb 14.6 (11.5-15.4) g/dL Hct 44.6 (35.3-44.9) % Plt Count 229 (140-400) K/mcL Neutrophils # 7.9 (1.6-8.9) K/mcL BMP 11/06/17 06:06 Sodium 140 Potassium 4.0 Chloride 106 Carbon Dioxide 27 BUN 48 H Creatinine 1.70 H Glucose 98 Calcium 9.9 - ABG Interpretation ABG results: PT/INR, D-dimer PT 33.6 Seconds (9.4-12.1) H 11/06/17 06:06 - Attending Attestation I performed a history and physical examination of the patient and discussed his/ her management with the resident. I reviewed the residents note and agree with the documented findings and plan of care.
[2017-11-06] MEDS: Cholecalciferol (D-3) 1,000 UNIT TABLET PO SCH (09:57)
[2017-11-06] MEDS: amLODIPine 5 MG TABLET PO SCH (09:57)
[2017-11-06] MEDS: Metoprolol XL (24 HR) Succ 50 MG TAB.ER.24H PO SCH ×2 (09:57→21:50)
[2017-11-06] MEDS: *HR* OxyCODONE/APAP 5/325 TABLET PO PRN (11:01)
[2017-11-06] MEDS: Insulin DETEMIR 100 UNIT/ML X5UNITS SQ SCH (17:46)
[2017-11-06] MEDS ORDERED: *HR* Warfarin 2.5 MG TABLET PO ONE (18:00)
[2017-11-07 05:30] LABS: INR 2.5; Prothrombin Time 27.6 Seconds (9.4-12.1)
[2017-11-07 08:06] LABS: Hematocrit 44.1 % (35.3-44.9); Hemoglobin 14.6 g/dL (11.5-15.4); Mean Corpuscular HGB Conc 33.1 g/dL (31.6-35.5); Mean Corpuscular Hemoglobin 31.6 pg (28.0-33.3); Mean Corpuscular Volume 95.5 fL (83.0-100.0); Mean Platelet Volume 11.3 fL (9.4-12.4); Platelet Count 216 K/mcL (140-400); Red Blood Count 4.62 M/mcL (3.82-4.97); Red Cell Distribution Width 15.8 % (11.5-14.5)
[2017-11-07 08:10] LABS: Calcium 9.7 mg/dL (8.6-10.3); Potassium 3.9 mEq/L (3.5-5.1)
[2017-11-07] MEDS: amLODIPine 5 MG TABLET PO SCH (08:19)
[2017-11-07] MEDS: Insulin LISPRO 300 UNITS/3 ML VIAL SQ SCH ×4 (08:19→20:31)
[2017-11-07] MEDS: Cholecalciferol (D-3) 1,000 UNIT TABLET PO SCH (08:19)
[2017-11-07] MEDS: Metoprolol XL (24 HR) Succ 50 MG TAB.ER.24H PO SCH ×2 (08:19→20:25)
--- NOTE | 2017-11-07 08:31 | Internal Med Progress Note ---
Date of Encounter: 11/07/17 Time of Encounter: 10:20 - Assessment and plan (1) IV site infection Current Visit: Yes Status: Acute Assessment and plan: Left antecubital fossa with findings as described in physical exam Warm compresses to help the infected area to drain on its own Doxycycline 100mg BID for 7 days Qualifiers: Encounter type: initial encounter Qualified Code(s): T82.7XXA - Infection and inflammatory reaction due to other cardiac and vascular devices, implants and grafts, initial encounter (2) Low back pain associated with a spinal disorder other than radiculopathy or spinal stenosis Current Visit: Yes Status: Acute Assessment and plan: -Acute on chronic back pain with muscle spasm - CT lumbar with spinal stenosis. - MRI spine showing mild multilevel degenerative disc disease in lumbar spine - Spinal surgery (Dr. Lake) recommends conservative management--Aggressive PT /OT while inpatient; f/u with Dr. Self as outpatient; consider epidural steroid injections. - Continued PT during hospitalization - Anticipate d/c to [facility] Friday for inpatient rehab/swing bed (3) Afib Current Visit: Yes Status: Chronic Assessment and plan: Rate controlled Continue coumadin, INR 3.0 Continue home meds Qualifiers: Atrial fibrillation type: chronic Qualified Code(s): I48.2 - Chronic atrial fibrillation (4) ESTRELLITA (acute kidney injury) Current Visit: Yes Status: Acute Assessment and plan: - Improving - Acute on CKD with baseline near 1.6 - Creatinine level 1.45 - Resume lasix (5) Hypertension Current Visit: Yes Status: Chronic Assessment and plan: Continue home medicine Resume lasix 154/76 Qualifiers: Hypertension type: essential hypertension Qualified Code(s): I10 - Essential (primary) hypertension (6) Diabetes mellitus Current Visit: Yes Status: Chronic Assessment and plan: Levemir 47 units SQ QPM Sliding scale insulin to medium corrective dose Diabetic diet a1c of 7.2% on 11/03/17 Qualifiers: Diabetes mellitus type: type 2 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 insulin use: with [facility] use Diabetes mellitus complication status: with neurologic complications Diabetes mellitus complication detail: with unspecified neuropathy Qualified Code(s): E11.40 - Type 2 diabetes mellitus with diabetic neuropathy, unspecified; Z79.4 - termite control technician (current) use of insulin; Z79.4 - penitentiary (current) use of insulin; Z79.4 - termite control technician (current) use of insulin; Z79.4 - termite control technician (current) use of insulin (7) DVT prophylaxis Current Visit: Yes Status: Acute Assessment and plan: EPCDs Coumadin, therapeutic - Time Spent With Patient Total time spent is greater than 50% in coordination of care (as documented) at patient's floor/unit and/or counseling patient: - Subjective Interval history: Patient seen and examined this morning. Patient is doing well today, states her low back pain has gotten a little bit better each day. Reports feeling less constipated since she had a bowel movement this morning. Denies nausea, vomiting, fevers, chills, chest pain, SOB. - Constitutional Vitals: Temp Pulse Resp BP Pulse Ox 98.2 F 65 18 154/76 94 11/07/17 07:46 11/07/17 07:46 11/07/17 07:46 11/07/17 07:46 11/07/17 07:46 General appearance: Present: A&O X 3, no acute distress Exam: General: well nourished, well developed, No acute distress, resting comfortably in bed HEENT: head normocephalic/atraumatic, EOMI, PERRL, moist mucus membranes, Neck: Supple, no lymphadenopathy Cardio: irregular rhythm, no tachycardia, no murmurs, +S1/S2 Pulm: CTAB, no wheezing or rhonchi, Normal respiratory effort. Abdomen: soft, nontender, BS+ Extremities: No LE edema, no cyanosis Neuro: AAOx3, no focal deficit, mentation intact, moves extremities spontaneously Skin: Left antecubital fossa shows erythema and a small lesion where her IV was , small amount of purulent drainage Psych: Appropriate mood and affect. Answers questions appropriately. Cooperative with exam Internal Medicine: Result - Labs CBC & Chem 7: 11/07/17 07:40 11/07/17 07:40 Labs: Short CBC 11/07/17 Range/Units 07:40 WBC 8.7 (4.3-11.1) K/mcL Hgb 14.6 (11.5-15.4) g/dL Hct 44.1 (35.3-44.9) % Plt Count 216 (140-400) K/mcL BMP 11/07/17 07:40 Sodium 139 Potassium 3.9 Chloride 106 Carbon Dioxide 26 BUN 42 H Creatinine 1.45 H Glucose 82 Calcium 9.7 - ABG Interpretation ABG results: PT/INR, D-dimer PT 27.6 Seconds (9.4-12.1) H 11/07/17 04:48 Consult Discharge Plan - Plan Referrals: Aneesh Krishnan MD [Non-Partnered Physician] - 12/05/17 9:30 am (Please arrive 15 minutes prior to your scheduled appointment time.) Addi Laguerre [Primary Care Provider] - 11/17/17 11:30 am
[2017-11-07] MEDS: Sennosides/Docusate Sodium TABLET PO SCH (13:39)
[2017-11-07] MEDS ORDERED: *HR* Warfarin 5 MG TABLET PO ONE (18:00)
[2017-11-07] MEDS ORDERED: *HR* Warfarin 5 MG TABLET PO SCH (18:00)
[2017-11-07] MEDS: Insulin DETEMIR 100 UNIT/ML X5UNITS SQ SCH (19:33)
[2017-11-07] MEDS: Doxycycline 100 MG CAPSULE PO SCH (20:25)
[2017-11-08 06:01] LABS: INR 2.1
[2017-11-08 06:19] LABS: Potassium 3.9 mEq/L (3.5-5.1)
[2017-11-08] MEDS: Furosemide 20 MG TABLET PO SCH (08:14)
[2017-11-08] MEDS: Cholecalciferol (D-3) 1,000 UNIT TABLET PO SCH (08:14)
[2017-11-08] MEDS: amLODIPine 5 MG TABLET PO SCH (08:14)
[2017-11-08] MEDS: Sennosides/Docusate Sodium TABLET PO SCH (08:15)
[2017-11-08] MEDS: Doxycycline 100 MG CAPSULE PO SCH (08:15)
[2017-11-08] MEDS: Metoprolol XL (24 HR) Succ 50 MG TAB.ER.24H PO SCH (08:15)
[2017-11-08] MEDS: Insulin LISPRO 300 UNITS/3 ML VIAL SQ SCH ×2 (08:16→13:05)
[2017-11-08 12:19] VITALS: BP 154/91
--- NOTE | 2017-11-08 13:16 | Discharge Summary ---
- NOTES TO OUTPATIENT PROVIDER Notes to Outpatient Provider: Recheck left arm IV site which appeared infection. Had minor cellulitis and is being treated with doxycycline. Follow- up Constipation, currently on pain medication for back pain. Recheck BMP in one week. Date of Encounter: 11/08/17 Time of Encounter: 13:14 - Discharge Diagnosis (1) ESTRELLITA (acute kidney injury) Priority: Primary Status: Acute (2) Afib Priority: Secondary Status: Chronic Qualifiers: Atrial fibrillation type: chronic Qualified Code(s): I48.2 - Chronic atrial fibrillation (3) Low back pain associated with a spinal disorder other than radiculopathy or spinal stenosis Priority: Secondary Status: Acute (4) Hypertension Priority: Secondary Status: Chronic Qualifiers: Hypertension type: essential hypertension Qualified Code(s): I10 - Essential (primary) hypertension (5) DVT prophylaxis Priority: Secondary Status: Acute (6) Diabetes mellitus Priority: Secondary Status: Chronic Qualifiers: Diabetes mellitus type: type 2 Diabetes mellitus senior living 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 Diabetes mellitus complication status: with neurologic complications Diabetes mellitus complication detail: with unspecified neuropathy Qualified Code(s): E11.40 - Type 2 diabetes mellitus with diabetic neuropathy, unspecified; Z79.4 - exterminator helper (current) use of insulin; Z79.4 - snf (current) use of insulin; Z79.4 - snf (current) use of insulin; Z79.4 - exterminator helper (current) use of insulin (7) IV site infection Priority: Secondary Status: Acute Qualifiers: Encounter type: initial encounter Qualified Code(s): T82.7XXA - Infection and inflammatory reaction due to other cardiac and vascular devices, implants and grafts, initial encounter Hospital course: Ms. Velasco is a 82 year old female With history of A. fib on Coumadin, diabetes mellitus with last A1c 7.5 has been on insulin, hypertension, CAD stage III brought to ER by family with acute on chronic low back pain. Patient has chronic low back pain but intermittently and less frequently 4-6 year but for last 2 month it has been progressively worse especially when it she bent over. This Friday she bent over to pick some stuff from the floor and then her back got caught in the pain and now she is not able to ambulate for last 3 days. She rated her pain 10 x 10, nonradiating to lower extremity. She denies any urinary or bowel incontinence, lower extremity weakness, tingling and numbness. She also denies fall but very difficult to walk after this acute event. A CT showed lumbar spinal stenosis. An MRI showed mild multilevel degenerative disc disease in lumbar spine. She was found to have acute kidney injury in ED. Spine surgeon Dr. Lake was consulted and patient was started with PT/OT. PT/ OT recommended inpatient rehab/swing bed. Medications for patient were renally dosed and renal function improved. She did have mild infection at IV site in her left arm. Doxycycline and warm compress started and patient did notice improvement. This was continued on discharge to finish 7 days. She was discharged to inpatient rehab in stable condition. - Time Spent with Patient Total time spent providing and/or coordinating discharge services: - Discharge Medications Prescriptions: OxyCODONE/APAP 5/325 [Percocet 5/325 MG] 1 each PO Q6H PRN 3 Days #12 tablet PRN Reason: Severe Pain Home Medications: Allopurinol [Zyloprim] 300 mg PO DAILY 11/03/17 [History] Calcitriol 0.5 mcg PO DAILY 11/03/17 [History] Ergocalciferol (VITAMIN D2) [Vitamin D2] 50,000 unit PO 2XW 11/03/17 [History] Furosemide [Lasix] 20 mg PO DAILY 11/03/17 [History] HYDROcodone/Acet 5/325 mg [Canvas 5-325 mg] 1 tab PO Q6H PRN 11/03/17 [History] Insulin ASPART [Novolog Flexpen] 15 unit SQ TID 11/03/17 [History] Insulin DETEMIR [Levemir Flextouch] 47 unit SQ QPM 11/03/17 [History] Metoprolol XL (24 HR) Succ [Toprol Xl] 50 mg PO BID 11/03/17 [History] Warfarin [Coumadin] 2.5 mg PO SUMOTUWETHSA 11/03/17 [History] Warfarin [Coumadin] 5 mg PO FR 11/03/17 [History] amLODIPine [Norvasc] 5 mg PO DAILY 11/03/17 [History] Doxycycline 100 mg PO BID 7 Days capsule 11/08/17 [Rx] OxyCODONE/APAP 5/325 [Percocet 5/325 MG] 1 each PO Q6H PRN 3 Days #12 tablet [Rx] Sennosides/Docusate Sodium [Senna Plus] 1 each PO DAILY tablet 11/08/17 [Rx] Allergies/Adverse Reactions: 3 Allergy/AdvReac Type Severity Reaction Status Date / Time Penicillins Allergy Rash Verified 11/03/17 11:17 Date of admission: 11/05/17 14:09 Primary care physician: Addi Laguerre Discharging clinician: Adri Zarate - Constitutional Vitals: Temp Pulse Resp BP Pulse Ox 98.2 F 70 16 154/91 94 11/08/17 12:12 11/08/17 12:12 11/08/17 12:12 11/08/17 12:12 11/08/17 12:12 General appearance: Present: A&O X 3, no acute distress Exam: General: pleasant, No acute distress, sitting in bedside chair doing crossword puzzle HEENT: head normocephalic/atraumatic, EOMI, PERRL, moist mucus membranes, Neck: Supple, no lymphadenopathy, FROM Cardio: irregular rhythm, no murmurs, +S1/S2 Pulm: CTAB, no wheezing, rhonchi, rales. Normal respiratory effort. Abdomen: soft, nontender, BS+, no rebound, rigidity, guarding, distention Extremities: No LE edema, no calf tenderness, no cyanosis, DP pulses 2+ bilaterally Neuro: AAOx3, no focal deficit, mentation intact, CN II-XII grossly intact, moves extremities spontaneously MSK: Strength 5/5 throughout, no visible deformities Skin: clean, dry, intact, left anticubital area with erythema in 3x3 region, non tender, no edema. Has slight purulent region not draining. This is improved since yesterday. Psych: Appropriate mood and affect. Answers questions appropriately. Cooperative with exam - Patient Status Disposition: Transfer Inpatient Rehab Fac Condition: Good Functional capacity at discharge: wheelchair bound Overall status at discharge: patient is progressing back to baseline - Discharge Instructions Follow Up With: Aneesh Krishnan MD [Non-Partnered Physician] - 12/05/17 9:30 am (Please arrive 15 minutes prior to your scheduled appointment time.) Addi Laguerre [Primary Care Provider] - 11/17/17 11:30 am - Diet and Activity Activity: as per physical therapy Diet: advance to your usual diet
--- NOTE | 2017-11-08 13:29 | Physician Discharge Referral ---
ExtendedCare Referral Info Provider in Charge after Transfer: Other - Diagnosis (1) ESTRELLITA (acute kidney injury) Priority: Primary Status: Resolved (2) Afib Priority: Secondary Status: Chronic (3) Low back pain associated with a spinal disorder other than radiculopathy or spinal stenosis Priority: Secondary Status: Acute (4) Hypertension Priority: Secondary Status: Chronic (5) DVT prophylaxis Priority: Secondary Status: Acute (6) Diabetes mellitus Priority: Secondary Status: Chronic (7) IV site infection Priority: Secondary Status: Acute - Transfer Medications Prescriptions: OxyCODONE/APAP 5/325 [Percocet 5/325 MG] 1 each PO Q6H PRN 3 Days #12 tablet PRN Reason: Severe Pain Home Medications: Allopurinol [Zyloprim] 300 mg PO DAILY 11/03/17 [History] Calcitriol 0.5 mcg PO DAILY 11/03/17 [History] Ergocalciferol (VITAMIN D2) [Vitamin D2] 50,000 unit PO 2XW 11/03/17 [History] Furosemide [Lasix] 20 mg PO DAILY 11/03/17 [History] HYDROcodone/Acet 5/325 mg [[place] 5-325 mg] 1 tab PO Q6H PRN 11/03/17 [History] Insulin ASPART [Novolog Flexpen] 15 unit SQ TID 11/03/17 [History] Insulin DETEMIR [Levemir Flextouch] 47 unit SQ QPM 11/03/17 [History] Metoprolol XL (24 HR) Succ [Toprol Xl] 50 mg PO BID 11/03/17 [History] Warfarin [Coumadin] 2.5 mg PO SUMOTUWETHSA 11/03/17 [History] Warfarin [Coumadin] 5 mg PO FR 11/03/17 [History] amLODIPine [Norvasc] 5 mg PO DAILY 11/03/17 [History] Doxycycline 100 mg PO BID 7 Days capsule 11/08/17 [Rx] OxyCODONE/APAP 5/325 [Percocet 5/325 MG] 1 each PO Q6H PRN 3 Days #12 tablet [Rx] Sennosides/Docusate Sodium [Senna Plus] 1 each PO DAILY tablet 11/08/17 [Rx] Allergies/Adverse Reactions: 3 Allergy/AdvReac Type Severity Reaction Status Date / Time Penicillins Allergy Rash Verified 11/03/17 11:17 - Respiratory Orders Smoking Cessation: Smoking cessation has been advised. For more information, call the [place] Tobacco Quit Line at 6-326-OYJW-NOW. - Advance Directives Code Status: Full Code - Mobility Orders Other (as per physical therapy) - Treatments Skin tear care topically daily PRN per policy, May check for fecal impaction rectally daily PRN - Diet Orders No Concentrated Sweets, Cardiac CERTIFICATION: I certify that the transfer of the above named patient to an Extended Care Facility is necessary for the continuing treatment of the diagnosis listed. The above information is true and accurate reflection of patient's current condition. Confidential - Redisclosure prohibited without a patient's written consent.
== END 2017-11-08 15:00 | DRG 683 ==
LOC: EMEROO 11:06 → 3ANU 11:06
PROVIDERS: ADMIT Student in an Organized Health Care Education/Training Program; ATTEND Pediatrics

== ENCOUNTER 2018-10-08 10:46 | Inpatient (IN) ==
--- NOTE | 2018-10-08 11:26 | Emergency Department Note ---
Disposition Clinical Impression: Hypoxia CHF exacerbation Qualifiers: Heart failure type: unspecified Qualified Code(s): I50.9 - Heart failure, unspecified Disposition: Admitted As Inpatient Condition: Fair Referrals: Addi Laguerre [Primary Care Provider] - Forms: ED Satisfaction Letter Time of Disposition: 13:20 General Adult HPI - General Chief complaint: ED Shortness of Breath/Dyspnea Stated complaint: "heart congestion, low oxygen" Time Seen by Provider: 10/08/18 11:00 Source: patient, family Limitations: no limitations - History of Present Illness HPI Narrative: Patient is an 83-year-old female with a past medical history of CHF and insulin dependent diabetes. She is presenting with her daughter for evaluation of worsening shortness of breath with exertion. Reports this is been worsening for the past month. Her outpatient provider has tried increasing her Lasix dose with little improvement. Patient states she desaturates into the low 80s and high 70s while ambulating. She does not have home oxygen. This severely limits her ability to ambulate. She denies chest pain, palpitations, dizziness. Denies nausea, vomiting, diaphoresis, fevers, chills. Pt Subjective Complaint: shortness of breath Pain Scale: 0 - Related Data Home Medications Medication Instructions Recorded Confirmed Allopurinol [Zyloprim] 300 mg PO DAILY 11/03/17 11/12/17 Calcitriol 0.5 mcg PO DAILY 11/03/17 11/12/17 Ergocalciferol (VITAMIN D2) 50,000 unit PO 2XW 11/03/17 11/12/17 [Vitamin D2] Furosemide [Lasix] 20 mg PO DAILY 11/03/17 11/12/17 HYDROcodone/Acet 5/325 mg [[place] 1 tab PO Q6H PRN 11/03/17 11/12/17 5-325 mg] Insulin ASPART [Novolog Flexpen] 15 unit SQ TID 11/03/17 11/12/17 Insulin DETEMIR [Levemir Flextouch] 47 unit SQ QPM 11/03/17 11/12/17 Metoprolol XL (24 HR) Succ [Toprol 50 mg PO BID 11/03/17 11/12/17 Xl] Warfarin [Coumadin] 2.5 mg PO SUMOTUWETHSA 11/03/17 11/12/17 Warfarin [Coumadin] 5 mg PO FR 11/03/17 11/12/17 amLODIPine [Norvasc] 5 mg PO DAILY 11/03/17 11/12/17 Previous Rx's Medication Instructions Recorded Doxycycline 100 mg PO BID 7 Days capsule 11/08/17 OxyCODONE/APAP 5/325 [Percocet 1 each PO Q6H PRN 3 Days #12 tablet 11/08/17 5/325 MG] Sennosides/Docusate Sodium [Senna 1 each PO DAILY tablet 11/08/17 Plus] Allergies Allergy/AdvReac Type Severity Reaction Status Date / Time Penicillins Allergy Rash Verified 11/03/17 11:17 Constitutional: Denies: fever, chills Eyes: Denies: vision change ENT ED: Denies: throat pain, dysphagia Cardiovascular: Reports: dyspnea on exertion, paroxysmal nocturnal dyspnea. Denies: chest pain, palpitations, syncope Respiratory: Reports: dyspnea. Denies: cough Gastrointestinal: Denies: abdominal pain, nausea, vomiting Genitourinary: Denies: urgency, dysuria Musculoskeletal: Denies: back pain, neck pain Integumentary: Denies: rash Neurological: Denies: headache, weakness Psychiatric: Denies: anxiety, depression Past Medical History - Past Medical History Source: patient, nursing notes reviewed Medical history: Reports: atrial fibrillation, diabetes, hypertension, renal disease Psychiatric history: Reports: no psych history - Social History Smoking Status: Never smoker Smokeless Tobacco Status: No Alcohol use: Reports: none Drug use: Reports: none Physical Exam - General Limitations: no limitations General appearance: alert, in no apparent distress - Head Head exam: atraumatic, normocephalic - Eye Eye exam: Present: PERRL, EOMI. Absent: scleral icterus, conjunctival injection - ENT ENT exam: normal oropharynx, mucous membranes moist - Neck Neck exam: Present: full ROM, trachea midline. Absent: lymphadenopathy - Chest Chest inspection: Present: normal inspection, symmetric chest wall rise - Respiratory Respiratory exam: Absent: respiratory distress, wheezes, accessory muscle use, prolonged expiratory phase - Expanded Respiratory Exam Location: rales: Left, Right (bibasilar) - Cardiovascular Cardiovascular exam: Present: regular rate, normal rhythm. Absent: systolic murmur, diastolic murmur - Abdominal Exam Abdominal exam: Present: soft, Non-Tender, normal bowel sounds. Absent: distent ion, guarding, rebound, rigidity - Rectal Exam Rectal exam: Present: deferred - Extremities Exam Extremities exam: Present: normal inspection, full ROM, pedal edema (2+ edema). Absent: calf tenderness - Back Exam Back exam: Absent: CVA tenderness (R), CVA tenderness (L), paraspinal tenderness - Neurological Exam Neurological exam: Present: alert, oriented X3, CN II-XII intact - Psychiatric Psychiatric exam: Present: normal affect, normal mood - Skin Skin exam: Present: warm, dry, intact. Absent: rash Course Course Narrative: Patient with suspected CHF exacerbation. Will obtain evaluation with EKG, chest x-ray, CBC, BMP, troponin, BNP. Will provide 49 g IV Lasix. Patient is desaturating into the high 70s at home. She is saturating 89% on room air in the emergency department at rest. Anticipate the patient will require admission to hospital for treatment of COPD exacerbation and hypoxia. No prior echocardi ogram report is identified in the system. - Reevaluation(s) Reevaluation #1: Patient is seen and reevaluated at the bedside. She reports no acute changes. Chest x-ray with evidence of vascular congestion. Patient is agreeable to admission for further evaluation and management. Dr. Smith accepts patient for admission and management of hypoxia and CHF exace rbation. Time: 13:16 Vital Signs Temperature 97.5 F L 10/08/18 10:56 Pulse Rate 66 10/08/18 10:56 Respiratory Rate 20 10/08/18 10:56 Blood Pressure 151/76 10/08/18 10:56 O2 Sat by Pulse Oximetry 89 10/08/18 10:56 Temperature 97.5 F L 10/08/18 10:56 Pulse Rate 66 10/08/18 10:56 Respiratory Rate 20 10/08/18 10:56 Blood Pressure 151/76 10/08/18 10:56 O2 Sat by Pulse Oximetry 97 10/08/18 11:22 Oxygen Delivery Oxygen Delivery Room Air Medical Decision Making - [facility] Narrative Medical decision making narrative: Patient with worsening shortness of breath and significant hypoxia with exertion. Chest x-ray with vascular congestion suggestive of volume overload. Have provided patient with 1 dose 41 g IV Lasix as well as oxygen supplementation. Patient currently hemodynamically stable and saturating well on 3 L by nasal cannula. Patient reports history of CHF, however echocardiogram report is not in our system. Patient has failed outpatient oral Lasix and remains hypoxic with exertion. Patient will require admission for further management of CHF exacerbation and hypoxia. - Medical Records Medical records reviewed: Yes I reviewed the patient's medical records. - Lab Data Lab results reviewed: Yes I reviewed the patient's lab results. Result diagrams: 10/08/18 11:19 10/08/18 11:19 Lab Results 10/08/18 10/08/18 10/08/18 Range/Units 11:19 11:19 11:19 WBC 9.1 (4.3-11.1) K/mcL RBC 5.39 H (3.82-4.97) M/mcL Hgb 16.7 H (11.5-15.4) g/dL Hct 50.3 H (35.3-44.9) % MCV 93.3 (83.0-100.0) fL MCH 31.0 (28.0-33.3) pg MCHC 33.2 (31.6-35.5) g/dL RDW 15.8 H (11.5-14.5) % Plt Count 242 (140-400) K/mcL MPV 10.9 (9.4-12.4) fL Immature Gran % 0.3 (0-4) % Seg Neutrophils % 69.4 % Lymphocytes % 22.5 % Monocytes % 6.7 % Eosinophils % 0.8 % Basophils % 0.3 % Neutrophils # 6.3 (1.6-8.9) K/mcL Lymphocytes # 2.1 (0.6-4.6) K/mcL Monocytes # 0.6 (0.0-1.3) K/mcL Eosinophils # 0.1 (0.0-0.6) K/mcL Basophils # 0.0 (0.0-0.2) K/mcL PT (9.4-12.1) Seconds INR Sodium 138 (136-145) mEq/L Potassium 3.5 (3.5-5.1) mEq/L Chloride 101 (98-107) mEq/L Carbon Dioxide 28 (23-29) mEq/L BUN 34 H (8-23) mg/dL Creatinine 1.81 H (0.60-1.20) mg/dL Est GFR ( Amer) 32 L (> 60) Est GFR (Non-Af Amer) 27 L (> 60) BUN/Creatinine Ratio 19 (6-26) Glucose 113 H (70-105) mg/dL Calculated Osmolality 294 (280-300) Calcium 10.5 H (8.6-10.3) mg/dL Troponin I < 0.03 (< 0.04) ng/mL B-Natriuretic Peptide 328 H (Less than 100) pg/mL 10/08/18 Range/Units 11:19 WBC (4.3-11.1) K/mcL RBC (3.82-4.97) M/mcL Hgb (11.5-15.4) g/dL Hct (35.3-44.9) % MCV (83.0-100.0) fL MCH (28.0-33.3) pg MCHC (31.6-35.5) g/dL RDW (11.5-14.5) % Plt Count (140-400) K/mcL MPV (9.4-12.4) fL Immature Gran % (0-4) % Seg Neutrophils % % Lymphocytes % % Monocytes % % Eosinophils % % Basophils % % Neutrophils # (1.6-8.9) K/mcL Lymphocytes # (0.6-4.6) K/mcL Monocytes # (0.0-1.3) K/mcL Eosinophils # (0.0-0.6) K/mcL Basophils # (0.0-0.2) K/mcL PT 19.8 H (9.4-12.1) Seconds INR 1.8 Sodium (136-145) mEq/L Potassium (3.5-5.1) mEq/L Chloride (98-107) mEq/L Carbon Dioxide (23-29) mEq/L BUN (8-23) mg/dL Creatinine (0.60-1.20) mg/dL Est GFR ( Amer) (> 60) Est GFR (Non-Af Amer) (> 60) BUN/Creatinine Ratio (6-26) Glucose (70-105) mg/dL Calculated Osmolality (280-300) Calcium (8.6-10.3) mg/dL Troponin I (< 0.04) ng/mL B-Natriuretic Peptide (Less than 100) pg/mL - Radiology Data Radiology results reviewed: Yes I reviewed the patient's radiology results. IMPRESSION: Findings most compatible with interstitial pulmonary edema and probable acute mild to moderate congestive heart failure. - EKG Data EKG #1 Rhythm: A.Fib When compared to previous EKG there are: no significant changes Interpretation: no acute changes
[2018-10-08 11:40] LABS: Basophils % 0.3 %; Eosinophils # 0.1 K/mcL (0.0-0.6); Eosinophils % 0.8 %; Hematocrit 50.3 % (35.3-44.9); Hemoglobin 16.7 g/dL (11.5-15.4); Immature Granulocytes % 0.3 % (0-4); Lymphocytes # 2.1 K/mcL (0.6-4.6); Lymphocytes % 22.5 %; Mean Corpuscular HGB Conc 33.2 g/dL (31.6-35.5); Mean Corpuscular Volume 93.3 fL (83.0-100.0); Mean Platelet Volume 10.9 fL (9.4-12.4); Monocytes # 0.6 K/mcL (0.0-1.3); Monocytes % 6.7 %; Neutrophils # 6.3 K/mcL (1.6-8.9); Platelet Count 242 K/mcL (140-400); Red Blood Count 5.39 M/mcL (3.82-4.97); Red Cell Distribution Width 15.8 % (11.5-14.5); Segmented Neutrophils % 69.4 %
[2018-10-08] MEDS ORDERED: Furosemide 40 MG/4 ML VIAL IVP ONE (11:43)
[2018-10-08 11:48] LABS: INR 1.8; Prothrombin Time 19.8 Seconds (9.4-12.1)
[2018-10-08 12:01] LABS: BUN/Creatinine Ratio 19 (6-26); Blood Urea Nitrogen 34 mg/dL (8-23); Calcium 10.5 mg/dL (8.6-10.3); Carbon Dioxide 28 mEq/L (23-29); Chloride 101 mEq/L (98-107); Glucose 113 mg/dL (70-105); Osmolality,Calculated 294 (280-300); Potassium 3.5 mEq/L (3.5-5.1); Sodium 138 mEq/L (136-145); Troponin I < 0.03 ng/mL (< 0.04); eGFR For Non-African Americans 27 (> 60)
[2018-10-08] MEDS ORDERED: Nitroglycerin 1 INCH/GM PACKET TP ONE (12:03)
--- NOTE | 2018-10-08 14:20 | Emergency Department Note ---
Disposition Clinical Impression: Hypoxia CHF exacerbation Qualifiers: Heart failure type: unspecified Qualified Code(s): I50.9 - Heart failure, unspecified Disposition: Admitted As Inpatient Condition: Fair General Adult HPI - General Chief complaint: ED Shortness of Breath/Dyspnea Stated complaint: "heart congestion, low oxygen" Time Seen by Provider: 10/08/18 11:00 Source: patient, family Limitations: no limitations - History of Present Illness Pain Scale: 0 - Related Data Home Medications Medication Instructions Recorded Confirmed Allopurinol [Zyloprim] 300 mg PO DAILY 11/03/17 11/12/17 Calcitriol 0.5 mcg PO DAILY 11/03/17 11/12/17 Ergocalciferol (VITAMIN D2) 50,000 unit PO 2XW 11/03/17 11/12/17 [Vitamin D2] Furosemide [Lasix] 20 mg PO DAILY 11/03/17 11/12/17 HYDROcodone/Acet 5/325 mg [[place] 1 tab PO Q6H PRN 11/03/17 11/12/17 5-325 mg] Insulin ASPART [Novolog Flexpen] 15 unit SQ TID 11/03/17 11/12/17 Insulin DETEMIR [Levemir Flextouch] 47 unit SQ QPM 11/03/17 11/12/17 Metoprolol XL (24 HR) Succ [Toprol 50 mg PO BID 11/03/17 11/12/17 Xl] Warfarin [Coumadin] 2.5 mg PO SUMOTUWETHSA 11/03/17 11/12/17 Warfarin [Coumadin] 5 mg PO FR 11/03/17 11/12/17 amLODIPine [Norvasc] 5 mg PO DAILY 11/03/17 11/12/17 Previous Rx's Medication Instructions Recorded Doxycycline 100 mg PO BID 7 Days capsule 11/08/17 OxyCODONE/APAP 5/325 [Percocet 1 each PO Q6H PRN 3 Days #12 tablet 11/08/17 5/325 MG] Sennosides/Docusate Sodium [Senna 1 each PO DAILY tablet 11/08/17 Plus] Allergies Allergy/AdvReac Type Severity Reaction Status Date / Time Penicillins Allergy Rash Verified 11/03/17 11:17 Constitutional: Denies: fever, chills Eyes: Denies: vision change ENT ED: Denies: throat pain, dysphagia Cardiovascular: Reports: dyspnea on exertion, paroxysmal nocturnal dyspnea. Denies: chest pain, palpitations, syncope Respiratory: Reports: dyspnea. Denies: cough Gastrointestinal: Denies: abdominal pain, nausea, vomiting Genitourinary: Denies: urgency, dysuria Musculoskeletal: Denies: back pain, neck pain Integumentary: Denies: rash Neurological: Denies: headache, weakness Psychiatric: Denies: anxiety, depression Past Medical History - Past Medical History Medical history: Reports: atrial fibrillation, diabetes, hypertension, renal disease Psychiatric history: Reports: no psych history - Social History Smoking Status: Never smoker Smokeless Tobacco Status: No Alcohol use: Reports: none Drug use: Reports: none Physical Exam - General Limitations: no limitations General appearance: alert, in no apparent distress Course Vital Signs Temperature 97.5 F L 10/08/18 10:56 Pulse Rate 66 10/08/18 10:56 Respiratory Rate 20 10/08/18 10:56 Blood Pressure 151/76 10/08/18 10:56 O2 Sat by Pulse Oximetry 89 10/08/18 10:56 Temperature 97.5 F L 10/08/18 10:56 Pulse Rate 66 10/08/18 10:56 Respiratory Rate 18 10/08/18 13:58 Blood Pressure 131/71 10/08/18 13:58 O2 Sat by Pulse Oximetry 97 10/08/18 11:22 Oxygen Delivery Oxygen Delivery Room Air,Nasal Cannula Medical Decision Making - Lab Data Result diagrams: 10/08/18 11:19 10/08/18 11:19 Lab Results 10/08/18 10/08/18 10/08/18 Range/Units 11:19 11:19 11:19 WBC 9.1 (4.3-11.1) K/mcL RBC 5.39 H (3.82-4.97) M/mcL Hgb 16.7 H (11.5-15.4) g/dL Hct 50.3 H (35.3-44.9) % MCV 93.3 (83.0-100.0) fL MCH 31.0 (28.0-33.3) pg MCHC 33.2 (31.6-35.5) g/dL RDW 15.8 H (11.5-14.5) % Plt Count 242 (140-400) K/mcL MPV 10.9 (9.4-12.4) fL Immature Gran % 0.3 (0-4) % Seg Neutrophils % 69.4 % Lymphocytes % 22.5 % Monocytes % 6.7 % Eosinophils % 0.8 % Basophils % 0.3 % Neutrophils # 6.3 (1.6-8.9) K/mcL Lymphocytes # 2.1 (0.6-4.6) K/mcL Monocytes # 0.6 (0.0-1.3) K/mcL Eosinophils # 0.1 (0.0-0.6) K/mcL Basophils # 0.0 (0.0-0.2) K/mcL PT (9.4-12.1) Seconds INR Sodium 138 (136-145) mEq/L Potassium 3.5 (3.5-5.1) mEq/L Chloride 101 (98-107) mEq/L Carbon Dioxide 28 (23-29) mEq/L BUN 34 H (8-23) mg/dL Creatinine 1.81 H (0.60-1.20) mg/dL Est GFR ( Amer) 32 L (> 60) Est GFR (Non-Af Amer) 27 L (> 60) BUN/Creatinine Ratio 19 (6-26) Glucose 113 H (70-105) mg/dL Calculated Osmolality 294 (280-300) Calcium 10.5 H (8.6-10.3) mg/dL Troponin I < 0.03 (< 0.04) ng/mL B-Natriuretic Peptide 328 H (Less than 100) pg/mL 10/08/18 Range/Units 11:19 WBC (4.3-11.1) K/mcL RBC (3.82-4.97) M/mcL Hgb (11.5-15.4) g/dL Hct (35.3-44.9) % MCV (83.0-100.0) fL MCH (28.0-33.3) pg MCHC (31.6-35.5) g/dL RDW (11.5-14.5) % Plt Count (140-400) K/mcL MPV (9.4-12.4) fL Immature Gran % (0-4) % Seg Neutrophils % % Lymphocytes % % Monocytes % % Eosinophils % % Basophils % % Neutrophils # (1.6-8.9) K/mcL Lymphocytes # (0.6-4.6) K/mcL Monocytes # (0.0-1.3) K/mcL Eosinophils # (0.0-0.6) K/mcL Basophils # (0.0-0.2) K/mcL PT 19.8 H (9.4-12.1) Seconds INR 1.8 Sodium (136-145) mEq/L Potassium (3.5-5.1) mEq/L Chloride (98-107) mEq/L Carbon Dioxide (23-29) mEq/L BUN (8-23) mg/dL Creatinine (0.60-1.20) mg/dL Est GFR ( Amer) (> 60) Est GFR (Non-Af Amer) (> 60) BUN/Creatinine Ratio (6-26) Glucose (70-105) mg/dL Calculated Osmolality (280-300) Calcium (8.6-10.3) mg/dL Troponin I (< 0.04) ng/mL B-Natriuretic Peptide (Less than 100) pg/mL Attestation Statement - Attestation Attestation: I examined this patient and my medical decision-making was reviewed with the PELT DROPPER/PA/Advanced Practice Nurse/Resident Physician. I agree with the documented findings, disposition and treatment plan as described except to the extent set forth below. Patient does have orthopnea, bibasilar rails, lower extremity edema and history of heart failure with a chest x-ray consistent with pulmonary edema the patient is treated for heart failure with nitroglycerin paste, IV Lasix and the patient will be admitted to the hospital due to her hypoxemia and significant symptoms. 1422
[2018-10-08] MEDS ORDERED: Ondansetron 4 MG/2 ML VIAL IVP PRN (17:12)
[2018-10-08] MEDS ORDERED: *HR* HYDROcodone/Acet 5/325 mg TABLET PO PRN (17:12)
[2018-10-08] MEDS ORDERED: Naloxone 0.4 MG/ML INJ IVP PRN (17:12)
[2018-10-08] MEDS ORDERED: Acetaminophen 325 MG TABLET PO PRN (17:12)
[2018-10-08] MEDS ORDERED: Dextrose Gel 15 GM/37.5 ML TUBE PO PRN ×2 (17:21)
[2018-10-08] MEDS ORDERED: *HR* Dextrose 50 % in Water (Syg) 50 ML SYRINGE IVP PRN (17:21)
[2018-10-08] MEDS ORDERED: D5% in Water 1,000 ML IVC PRN (17:21)
[2018-10-08] MEDS ORDERED: Warfarin perPT PO PRN (18:00)
--- NOTE | 2018-10-08 18:08 | Internal Med History&Physical ---
Date of Encounter: 10/08/18 Time of Encounter: 17:31 Internal Medicine - H&P: HPI Chief complaint: Shortness of breath Admitted From: Emergency Dept Plans for Post Hospital Care: Home History of present illness: Ms. Velasco is a 83 year old female Past history medical history of CKD 3 CHF insulin-dependent diabetic presented with worsening shortness of breath on exertion. Has been experiencing increasing shortness of breath over the past month. She has by her outpatient provider who has been attempting to diurese he r as an outpatient without success. Today patient states she was unable to sleep at night and was not able to lie flat and slept in a chair. She has had lower extremity swelling and is unable to complete her ADLs due to increasing shortness of breath. She has also noted a 5 pound weight gain over the past week She presented to [facility] ED with the above complaints. Chest x-ray was completed which did show pulmonary congestion indicative of CHF BNP was elevated at 328-oxygen saturations were 80% on room air and she required supplemental oxygen. Patient normally does not wear oxygen at home. She has been admitted for further work up and evaluation. Currently patient does not appear to be in any respiratory distress she denies any chest pain or palpitations. I did discuss CODE STATUS with the patient who verbalized that she would like to be a DNR CCA with no intubation Past Med Surg Social Fam HX - Past Medical History Medical history: atrial fibrillation, diabetes, hypertension, renal disease Psychiatric history: no psych history - Past Surgical History Surgical History: no surgical history - Social History Smoking Status: Never smoker Smokeless Tobacco Status: No Alcohol use: none Drug use: none - Family History Mother Living Status: Age at : 90 Cause of : enlarged heart Hx Family Cardiac Disorders: Yes Internal Medicine - H&P: Meds Allopurinol [Zyloprim] 300 mg PO DAILY 11/03/17 [History] Calcitriol 0.5 mcg PO DAILY 11/03/17 [History] Ergocalciferol (VITAMIN D2) [Vitamin D2] 50,000 unit PO 2XW 11/03/17 [History] Furosemide [Lasix] 20 mg PO DAILY 11/03/17 [History] HYDROcodone/Acet 5/325 mg [[place] 5-325 mg] 1 tab PO Q6H PRN 11/03/17 [History] Insulin ASPART [Novolog Flexpen] 15 unit SQ TID 11/03/17 [History] Insulin DETEMIR [Levemir Flextouch] 47 unit SQ QPM 11/03/17 [History] Metoprolol XL (24 HR) Succ [Toprol Xl] 50 mg PO BID 11/03/17 [History] Warfarin [Coumadin] 2.5 mg PO SUMOTUWETHSA 11/03/17 [History] Warfarin [Coumadin] 5 mg PO FR 11/03/17 [History] amLODIPine [Norvasc] 10 mg PO DAILY 11/03/17 [History] Doxycycline 100 mg PO BID 7 Days capsule 11/08/17 [Rx] OxyCODONE/APAP 5/325 [Percocet 5/325 MG] 1 each PO Q6H PRN 3 Days #12 tablet 11/08/17 [Rx] Sennosides/Docusate Sodium [Senna Plus] 1 each PO DAILY tablet 11/08/17 [Rx] Allergy/AdvReac Type Severity Reaction Status Date / Time Penicillins Allergy Rash Verified 11/03/17 11:17 All Systems PM: A 10-system review of systems was performed and is negative for pertinent findings except as documented above in the HPI. - Constitutional Constitutional: weight gain - EENT Eyes: no change in vision, no discharge, no pain, no photophobia Ears: no ear discharge, no ear pain, no tinnitus Nose, mouth and throat: no dysphagia, no nasal discharge, no neck pain, no sore throat - Cardiovascular Cardiovascular ROS IM: edema, no chest pain, no diaphoresis, no dyspnea, no lightheadedness, no palpitations, no syncope - Respiratory Respiratory: dyspnea on exertion, no cough, no dyspnea, no wheezing, no excessive phlegm production - Gastrointestinal Gastrointestinal: no abdominal pain, no diarrhea, no hematemesis, no hematochezia, no melena, no nausea, no vomiting - Genitourinary Genitourinary: no change in urinary stream, no dysuria, no flank pain, no hematuria - Musculoskeletal Musculoskeletal ROS IM: no numbness, no tingling - Integumentary Integumentary IM: no rash, no unusual bruising - Neurological Neurological ROS: no confusion, no convulsions, no focal weakness, no numbness, no tingling, no tremor(s) - Hematologic/Lymphatic Hematologic/Lymphatic: no easy bruising - Constitutional Vitals: Temp Pulse Resp BP Pulse Ox 97.6 F 55 16 144/64 90 10/08/18 14:56 10/08/18 14:56 10/08/18 14:56 10/08/18 14:56 10/08/18 14:56 General appearance: Present: A&O X 3 Exam: . - Head Head exam: Present: atraumatic, normocephalic - Eye Eye exam: Present: PERRL, conjuntiva pink, sclera anicteric Pupils: Present: PERRL - Neck Neck exam general surgery: Present: supple, trachea midline. Absent: lymphade nopathy - Respiratory Respiratory exam: Present: rales. Absent: accessory muscle use, rhonchi, wheezes - Cardiovascular Cardiovascular exam: Present: RRR, +S1, +S2. Absent: diastolic murmur, gallop, rubs, systolic murmur - GI/Abdominal GI/Abdominal exam: Present: normal bowel sounds, soft, no peritoneal signs. Absent: distended, tenderness - Extremities Exam Extremities exam: Present: pedal edema, warm, radial pulses palpable and symmetr ical. Absent: calf tenderness, cyanotic - Neurological Exam Neurological exam: Present: CN II-XII intact, oriented X3, no focal deficits. Absent: pronater drift, facial droop, speech deficit - Skin Skin exam: Present: dry, intact Internal Med - H&P Results - Labs CBC & Chem 7: 10/08/18 11:19 10/08/18 11:19 Labs: Short CBC 10/08/18 Range/Units 11:19 WBC 9.1 (4.3-11.1) K/mcL Hgb 16.7 H (11.5-15.4) g/dL Hct 50.3 H (35.3-44.9) % Plt Count 242 (140-400) K/mcL Neutrophils # 6.3 (1.6-8.9) K/mcL BMP 10/08/18 11:19 Sodium 138 Potassium 3.5 Chloride 101 Carbon Dioxide 28 BUN 34 H Creatinine 1.81 H Glucose 113 H Calcium 10.5 H Cardiac Enzymes 10/08/18 Range/Units 11:19 Troponin I < 0.03 (< 0.04) ng/mL - EKG Data EKG comments: 10/08/18 18:18 Afib - Impressions ITS Impressions Chest X-Ray 10/08/18 11:01 IMPRESSION: Findings most compatible with interstitial pulmonary edema and probable acute mild to moderate congestive heart failure. D/ / Alberto Zabala MD / Alberto Zabala MD Interpreting Provider: Alberto Zabala MD - Assessment and Plan (1) Acute respiratory failure with hypoxia Current Visit: Yes Status: Acute Assessment and plan: Secondary to CHF exacerbation-presented with oxygen saturations in the 80s on room air patient is requiring 2 L nasal cannula to maintain SPO2 greater than 92%. Patient may require a 6 minute walk prior to discharge (2) CHF exacerbation Current Visit: Yes Status: Acute Assessment and plan: 1 has Leiva parenting increasing shortness of breath on exertion over the past month worsening within the past week he is she is unable complete her ADLs. Has had lower 70 swelling as well as orthopnea 5 pound weight gain over the past week. Continuous cardiac monitoring Patient is on Lasix 20 mg daily at home we will place on 40 mg twice a day IV Strict intake and output low-sodium diet with 1.5 mL fluid restriction Daily weights We will obtain a cardiac echo Consult cardiology as needed Oxygen as needed to maintain SPO2 greater than 90% Qualifiers: Heart failure type: unspecified Qualified Code(s): I50.9 - Heart failure, unspecified (3) CKD (chronic kidney disease) Current Visit: No Status: Chronic Assessment and plan: 1 history of CK disease stage III baseline creatinine 1.57- 1.8-currently currently 1.81 we will monitor closely since patient is receiving diuretics Avoid nephrotoxins Monitor intake and output daily weights Qualifiers: Chronic kidney disease stage: stage 3 (moderate) Qualified Code(s): N18.3 - Chronic kidney disease, stage 3 (moderate) (4) Hypoxia Current Visit: Yes Status: Acute Assessment and plan: Secondary to CHF exacerbation continue with oxygen support (5) Diabetes mellitus Current Visit: No Status: Chronic Assessment and plan: Hold oral nodswk-Nodk-Pfnod before meals at bedtime for sinus scale insulin Qualifiers: Diabetes mellitus type: type 2 Diabetes mellitus exterminator termite insulin use: with exterminator termite use Diabetes mellitus complication status: with neurologic complications Diabetes mellitus complication detail: with unspecified neuropathy Qualified Code(s): E11.40 - Type 2 diabetes mellitus with diabetic neuropathy, unspecified; Z79.4 - supervisor intermediates (current) use of insulin; Z79.4 - supervisor intermediates (current) use of insulin; Z79.4 - supervisor intermediates (current) use of insulin; Z79.4 - skilled nursing (current) use of insulin (6) DVT prophylaxis Current Visit: Yes Status: Acute Assessment and plan: On Coumadin (7) Afib Current Visit: No Status: Chronic Assessment and plan: History of chronic atrial fibrillation currently rate controlled continue with Coumadin anticoagulation -pharmacy to dose -continue with metoprolol Qualifiers: Atrial fibrillation type: chronic Qualified Code(s): I48.2 - Chronic atrial fibrillation - Time Spent With Patient Total time spent is greater than 50% in coordination of care (as documented) at patient's floor/unit and/or counseling patient:
[2018-10-08] MEDS ORDERED: *HR* Warfarin 2.5 MG TABLET PO ONE (18:27)
[2018-10-08] MEDS: Insulin LISPRO 300 UNITS/3 ML VIAL SQ SCH (20:42)
[2018-10-08] MEDS: Furosemide 40 MG/4 ML VIAL IVP SCH (20:43)
[2018-10-08] MEDS: Metoprolol XL (24 HR) Succ 50 MG TAB.ER.24H PO SCH (20:43)
[2018-10-09 01:38] LABS: Basophils % 0.3 %; Eosinophils # 0.1 K/mcL (0.0-0.6); Eosinophils % 0.9 %; Hematocrit 48.3 % (35.3-44.9); Hemoglobin 15.5 g/dL (11.5-15.4); Immature Granulocytes % 0.3 % (0-4); Lymphocytes # 1.8 K/mcL (0.6-4.6); Lymphocytes % 22.2 %; Mean Corpuscular HGB Conc 32.1 g/dL (31.6-35.5); Mean Corpuscular Hemoglobin 30.5 pg (28.0-33.3); Mean Corpuscular Volume 94.9 fL (83.0-100.0); Mean Platelet Volume 11.7 fL (9.4-12.4); Monocytes # 0.7 K/mcL (0.0-1.3); Monocytes % 8.4 %; Neutrophils # 5.4 K/mcL (1.6-8.9); Platelet Count 227 K/mcL (140-400); Red Blood Count 5.09 M/mcL (3.82-4.97); Red Cell Distribution Width 15.6 % (11.5-14.5); Segmented Neutrophils % 67.9 %
[2018-10-09 01:44] LABS: INR 1.8; Prothrombin Time 20.5 Seconds (9.4-12.1)
[2018-10-09 01:56] LABS: Calcium 9.8 mg/dL (8.6-10.3); Magnesium 1.8 mg/dL (1.6-2.6)
[2018-10-09] MEDS: Insulin LISPRO 300 UNITS/3 ML VIAL SQ SCH ×4 (09:16→20:26)
[2018-10-09] MEDS: amLODIPine 5 MG TABLET PO SCH (09:16)
[2018-10-09] MEDS: Metoprolol XL (24 HR) Succ 50 MG TAB.ER.24H PO SCH ×2 (09:16→20:24)
[2018-10-09] MEDS: Furosemide 20 MG/2 ML VIAL IVP SCH ×2 (09:16→17:33)
--- NOTE | 2018-10-09 09:51 | Internal Med Progress Note ---
Hospitalist Progress Note - Encounter Date of Encounter: 10/09/18 Time of Encounter: 09:51 - Subjective Interval History: Patient was seen and examined at bedside currently denies any chest pain or shortness of breath she states that she feels less swollen. She states she had a really good sleep last night and was the first time she can sleep in several nights. Discussed treatment plan with the patient and her family who are at bedside - Exam Vitals: Temp Pulse Resp BP Pulse Ox 97.8 F 68 17 148/67 94 10/09/18 06:41 10/09/18 06:41 10/09/18 06:41 10/09/18 06:41 10/09/18 06:41 Exam: Skin: Free of rash and discoloration. Eyes: Sclera is white. There is no discharge from eyes. ENMT: Oral/pharyngeal mucosa is normal in appearance. There is no discharge from nose or ears. Respiratory: Normal breath sounds with no wheezes bilaterally. Faint crackles in bases CV: Heart is regular with no gallop or murmur. GI: Abdomen is flat and soft with no palpable mass or visceromegaly. : There is no tenderness in patient's flanks bilaterally. Neuro exam: He has good strength in upper and lower extremities. He has normal eye movements. Psychiatric: He has normal affect. His thought process is appropriate to the situation. . - Assessment and Plan (1) Acute respiratory failure with hypoxia Current Visit: Yes Status: Acute Assessment and Plan: Secondary to CHF exacerbation-presented with oxygen saturations in the 80s on room air -currently oxygen is being weaned per nursing staff Patient may require a 6 minute walk prior to discharge (2) CHF exacerbation Current Visit: Yes Status: Acute Assessment and Plan: 1 has Leiva parenting increasing shortness of breath on exertion over the past month worsening within the past week he is she is unable complete her ADLs. Has had lower 70 swelling as well as orthopnea 5 pound weight gain over the past week. Continuous cardiac monitoring Patient is on Lasix 20 mg daily at home we will place on 40 mg twice a day IV-we will decrease Lasix to 20 mg-she did have elevation in her creatinine this a.m. Strict intake and output low-sodium diet with 1.5 mL fluid restriction-patient did not have any intake and output documented overnight. I did address this with the nursing staff Daily weights cardiac echo LVEF 60-65%. Indeterminate diastolic function. RV is mildly dilated with normal function. Bi-atrial enlargement. Mild mitral regurgitation. Mild tricuspid regurgitation. Borderline mild pulmonary hypertension. Consult cardiology as needed Oxygen as needed to maintain SPO2 greater than 90% (3) CKD (chronic kidney disease) Current Visit: No Status: Chronic Assessment and Plan: 1 history of CK disease stage III baseline creatinine 1.57- 1.8-currently - slight increase in creatinine this morning 1.83 with GFR 27 we will decrease Lasix to 20 mg IV Avoid nephrotoxins Monitor intake and output daily weights (4) Hypoxia Current Visit: Yes Status: Acute Assessment and Plan: Secondary to CHF exacerbation continue with oxygen support (5) Diabetes mellitus Current Visit: No Status: Chronic Assessment and Plan: Hold oral oteddc-Xhgt-Zotpk before meals at bedtime for sinus scale insulin (6) DVT prophylaxis Current Visit: Yes Status: Acute Assessment and Plan: On Coumadin (7) Afib Current Visit: No Status: Chronic Assessment and Plan: History of chronic atrial fibrillation currently rate controlled continue with Coumadin anticoagulation -pharmacy to dose -continue with metoprolol - Time Spent with Patient Total time spent is greater than 50% in coordination of care (as documented) at patient's floor/unit and/or counseling patient: Internal Medicine: Result - Labs CBC & Chem 7: 10/09/18 00:59 10/09/18 00:59 Labs: Short CBC 10/08/18 10/09/18 Range/Units 11:19 00:59 WBC 9.1 7.9 (4.3-11.1) K/mcL Hgb 16.7 H 15.5 H (11.5-15.4) g/dL Hct 50.3 H 48.3 H (35.3-44.9) % Plt Count 242 227 (140-400) K/mcL Neutrophils # 6.3 5.4 (1.6-8.9) K/mcL BMP 10/08/18 10/09/18 11:19 00:59 Sodium 138 141 Potassium 3.5 4.0 Chloride 101 102 Carbon Dioxide 28 31 H BUN 34 H 34 H Creatinine 1.81 H 1.83 H Glucose 113 H 160 H Calcium 10.5 H 9.8 Cardiac Enzymes 10/08/18 Range/Units 11:19 Troponin I < 0.03 (< 0.04) ng/mL - ABG Interpretation ABG results: PT/INR, D-dimer PT 20.5 Seconds (9.4-12.1) H 10/09/18 00:59 - Impressions Impressions Chest X-Ray 10/08/18 11:01 IMPRESSION: Findings most compatible with interstitial pulmonary edema and probable acute mild to moderate congestive heart failure. D/ / Alberto Zabala MD / Alberto Zabala MD Interpreting Provider: Alberto Zabala MD Consult Discharge Plan - Plan Referrals: Addi Laguerre [Primary Care Provider] - (2) CHF exacerbation Qualifiers: Heart failure type: diastolic Qualified Code(s): I50.33 - Acute on chronic diastolic (congestive) heart failure (3) CKD (chronic kidney disease) Qualifiers: Chronic kidney disease stage: stage 3 (moderate) Qualified Code(s): N18.3 - Chronic kidney disease, stage 3 (moderate) (5) Diabetes mellitus Qualifiers: Diabetes mellitus type: type 2 Diabetes mellitus terminal carman insulin use: with terminal carman use Diabetes mellitus complication status: with neurologic complications Diabetes mellitus complication detail: with unspecified neuropathy Qualified Code(s): E11.40 - Type 2 diabetes mellitus with diabetic neuropathy, unspecified; Z79.4 - bed bug exterminator (current) use of insulin; Z79.4 - USP (current) use of insulin; Z79.4 - USP (current) use of insulin; Z79.4 - USP (current) use of insulin (7) Afib Qualifiers: Atrial fibrillation type: chronic Qualified Code(s): I48.2 - Chronic atrial fibrillation
[2018-10-09] MEDS: Furosemide 40 MG/4 ML VIAL IVP SCH (12:52)
[2018-10-09] MEDS ORDERED: *HR* Warfarin 3 MG TABLET PO ONE (18:00)
[2018-10-10 05:19] LABS: Basophils % 0.3 %; Eosinophils # 0.1 K/mcL (0.0-0.6); Eosinophils % 1.3 %; Hematocrit 46.5 % (35.3-44.9); Hemoglobin 15.6 g/dL (11.5-15.4); Immature Granulocytes % 0.3 % (0-4); Lymphocytes # 1.8 K/mcL (0.6-4.6); Mean Corpuscular HGB Conc 33.5 g/dL (31.6-35.5); Mean Corpuscular Hemoglobin 31.6 pg (28.0-33.3); Mean Corpuscular Volume 94.3 fL (83.0-100.0); Mean Platelet Volume 11.4 fL (9.4-12.4); Monocytes # 0.6 K/mcL (0.0-1.3); Monocytes % 8.3 %; Neutrophils # 5.2 K/mcL (1.6-8.9); Platelet Count 200 K/mcL (140-400); Red Blood Count 4.93 M/mcL (3.82-4.97); Red Cell Distribution Width 15.4 % (11.5-14.5); Segmented Neutrophils % 66.8 %
[2018-10-10 05:31] LABS: INR 2.2; Prothrombin Time 24.4 Seconds (9.4-12.1)
[2018-10-10 05:37] LABS: Calcium 9.6 mg/dL (8.6-10.3)
[2018-10-10] MEDS: Insulin LISPRO 300 UNITS/3 ML VIAL SQ SCH ×4 (09:23→21:19)
[2018-10-10] MEDS: amLODIPine 5 MG TABLET PO SCH (09:24)
[2018-10-10] MEDS: Furosemide 20 MG/2 ML VIAL IVP SCH ×2 (09:24→16:23)
[2018-10-10] MEDS: Metoprolol XL (24 HR) Succ 50 MG TAB.ER.24H PO SCH ×2 (09:24→21:19)
[2018-10-10] MEDS ORDERED: Furosemide 20 MG/2 ML VIAL IVP ONE (10:02)
--- NOTE | 2018-10-10 10:32 | Internal Med Progress Note ---
Hospitalist Progress Note - Encounter Date of Encounter: 10/10/18 Time of Encounter: 10:30 - Subjective Interval History: Seen and examined at bedside continues to require oxygen supplementation denies any chest pain at this time. - Exam Vitals: Temp Pulse Resp BP Pulse Ox 97.9 F 62 16 154/71 93 10/10/18 07:12 10/10/18 07:12 10/10/18 07:12 10/10/18 07:12 10/10/18 07:12 Exam: Skin: Free of rash and discoloration. Eyes: Sclera is white. There is no discharge from eyes. ENMT: Oral/pharyngeal mucosa is normal in appearance. There is no discharge from nose or ears. Respiratory: Normal breath sounds with no wheezes bilaterally. Faint crackles in bases CV: Heart is regular with no gallop or murmur. GI: Abdomen is flat and soft with no palpable mass or visceromegaly. : There is no tenderness in patient's flanks bilaterally. Neuro exam: He has good strength in upper and lower extremities. He has normal eye movements. Psychiatric: He has normal affect. His thought process is appropriate to the situation. . - Assessment and Plan (1) CHF exacerbation Current Visit: Yes Status: Acute Assessment and Plan: 1 has Leiva parenting increasing shortness of breath on exertion over the past month worsening within the past week he is she is unable complete her ADLs. Has had lower 70 swelling as well as orthopnea 5 pound weight gain over the past week. Continuous cardiac monitoring Patient is on Lasix 20 mg daily at home we will place on 40 mg twice a day IV- ASICS was reduced to 20 IV twice a day yesterday after slight bump in creatinine however there is no improvement and chest x-ray this morning does show worsening CHF so I will increase back to 40 and continue to watch closely if no improvement in creatinine we may need to have nephrology involved to help with diuresis and patient Strict intake and output low-sodium diet with 1.5 mL fluid restriction-patient only had -200 overnight also weight is increased Daily weights cardiac echo LVEF 60-65%. Indeterminate diastolic function. RV is mildly dilated with normal function. Bi-atrial enlargement. Mild mitral regurgitation. Mild tricuspid regurgitation. Borderline mild pulmonary hypertension. Consult cardiology as needed Oxygen as needed to maintain SPO2 greater than 90% (2) Acute respiratory failure with hypoxia Current Visit: Yes Status: Acute Assessment and Plan: Secondary to CHF exacerbation-presented with oxygen saturations in the 80s on room air -currently oxygen is being weaned per nursing staff Patient did qualify for oxygen after 6 minute walk (3) CKD (chronic kidney disease) Current Visit: No Status: Chronic Assessment and Plan: 1 history of CK disease stage III baseline creatinine 1.57- 1.9 this morning we will increase Lasix monitor closely consult nephrology as needed Avoid nephrotoxins Monitor intake and output daily weights (4) Hypoxia Current Visit: Yes Status: Acute Assessment and Plan: Secondary to CHF exacerbation continue with oxygen support (5) Diabetes mellitus Current Visit: No Status: Chronic Assessment and Plan: Hold oral wejzet-Dvav-Ucoft before meals at bedtime for sinus scale insulin (6) DVT prophylaxis Current Visit: Yes Status: Acute Assessment and Plan: On Coumadin (7) Afib Current Visit: No Status: Chronic Assessment and Plan: History of chronic atrial fibrillation currently rate controlled continue with Coumadin anticoagulation -pharmacy to dose -continue with metoprolol - Time Spent with Patient Total time spent is greater than 50% in coordination of care (as documented) at patient's floor/unit and/or counseling patient: Internal Medicine: Result - Labs CBC & Chem 7: 10/10/18 04:38 10/10/18 04:38 Labs: Short CBC 10/10/18 Range/Units 04:38 WBC 7.7 (4.3-11.1) K/mcL Hgb 15.6 H (11.5-15.4) g/dL Hct 46.5 H (35.3-44.9) % Plt Count 200 (140-400) K/mcL Neutrophils # 5.2 (1.6-8.9) K/mcL BMP 10/10/18 04:38 Sodium 138 Potassium 4.0 Chloride 100 Carbon Dioxide 28 BUN 39 H Creatinine 1.91 H Glucose 200 H Calcium 9.6 - ABG Interpretation ABG results: PT/INR, D-dimer PT 24.4 Seconds (9.4-12.1) H 10/10/18 04:38 - Impressions Impressions Echocardiogram 10/08/18 18:05 Impressions: LVEF 60-65%. Indeterminate diastolic function. RV is mildly dilated with normal function. Bi-atrial enlargement. Mild mitral regurgitation. Mild tricuspid regurgitation. Borderline mild pulmonary hypertension. Left Ventricular Wall Motion: Rest Echo Findings All wall segments showed normal motion. Findings: Study Quality * Technically adequate exam. ECG Findings * Atrial fibrillation. Left Ventricle * LVEF 60-65%. * Normal LV chamber size, wall thickness and function. * Indeterminate diastolic function. Right Ventricle * RV is mildly dilated with normal function. Left Atrium * Moderate-severely dilated left atrium. Right Atrium * Moderate-severely dilated right atrium. Aortic Valve * No aortic regurgitation. * Trileaflet aortic valve. * Mildly calcified aortic valve leaflets. * No aortic stenosis. Mitral Valve * Mild mitral regurgitation. * Mildly calcified mitral valve leaflets. * No mitral stenosis. Tricuspid Valve * Tricuspid valve not well visualized. * Mild tricuspid regurgitation. Pulmonic Valve * Pulmonic valve is not well visualized. * No pulmonic stenosis. * No pulmonic regurgitation. Pulmonary Artery * Pulmonary artery not well visualized. Aorta * Normally sized aortic root. Interatrial Septum * Interatrial septum not well evaluated. IVC * The IVC is not well evaluated. Chest X-Ray 10/10/18 08:00 IMPRESSION: Findings suggestive of pulmonary interstitial edema, worse since previous examination. Trace bilateral pleural effusions. Bibasilar pulmonary opacities are favored to represent atelectasis or edema. Underlying pneumonia or aspiration cannot be excluded. Recommend short interval follow-up. RECOMMENDATION: Short interval follow-up chest radiograph. D/ / 10/10/2018 09:44:10 Kenn Zavaleta MD / robbie Interpreting Provider: Kenn Zavaleta MD Consult Discharge Plan - Plan Additional Instructions: Home oxygen has been set up through [facility]. You will need to call them when you get home to have them deliver equipment. Their number is #[phone]. Referrals: [facility] [Provider Group] (Appointment has been requested. Our office will call with an appointment time and date.) Dayron Dan MD [Partnered Physician] - 10/16/18 10:45 am (Please arrive 15 minutes early to appointment to fill out paperwork. Please bring ID, insurance cards, and medications in bottles. If you need to cancel or rescedule please call 24 hours ahead of time at [phone].) (1) CHF exacerbation Qualifiers: Heart failure type: diastolic Qualified Code(s): I50.33 - Acute on chronic diastolic (congestive) heart failure (3) CKD (chronic kidney disease) Qualifiers: Chronic kidney disease stage: stage 3 (moderate) Qualified Code(s): N18.3 - Chronic kidney disease, stage 3 (moderate) (5) Diabetes mellitus Qualifiers: Diabetes mellitus type: type 2 Diabetes mellitus snf insulin use: with watermelon inspector use Diabetes mellitus complication status: with neurologic complications Diabetes mellitus complication detail: with unspecified neuropathy Qualified Code(s): E11.40 - Type 2 diabetes mellitus with diabetic neuropathy, unspecified; Z79.4 - CHCF (current) use of insulin; Z79.4 - CHCF (current) use of insulin; Z79.4 - CHCF (current) use of insulin; Z79.4 - termite helper (current) use of insulin (7) Afib Qualifiers: Atrial fibrillation type: chronic Qualified Code(s): I48.2 - Chronic atrial fibrillation
--- NOTE | 2018-10-10 14:34 | Electrocardiograph Report ---
[place] [address] Test Date: 2018-10-08 Pat Name: Sammie Velasco Department: EXAMC5 Room: 3B47 Gender: F [employer]: : 1935 Requested By: Enrrique Hussein Order Number: [id number] Reading MD: Sally Peterson Measurements Intervals Warrior Rate: 63 P: ME: QRS: 113 QRSD: 97 T: 256 QT: 357 QTc: 366 Interpretive Statements Atrial fibrillation Right axis deviation Low voltage, precordial leads Probable anteroseptal infarct, old Borderline repolarization abnormality Electronically Signed On 10-10-2018 14:33:20 EDT by Sally Peterson
[2018-10-10] MEDS ORDERED: *HR* Warfarin 3 MG TABLET PO ONE (18:00)
[2018-10-11 04:54] LABS: Basophils % 0.3 %; Eosinophils # 0.1 K/mcL (0.0-0.6); Eosinophils % 0.8 %; Hematocrit 49.4 % (35.3-44.9); Immature Granulocytes % 0.3 % (0-4); Lymphocytes # 1.5 K/mcL (0.6-4.6); Lymphocytes % 16.7 %; Mean Corpuscular HGB Conc 32.4 g/dL (31.6-35.5); Mean Corpuscular Hemoglobin 30.6 pg (28.0-33.3); Mean Corpuscular Volume 94.5 fL (83.0-100.0); Mean Platelet Volume 11.5 fL (9.4-12.4); Monocytes # 0.6 K/mcL (0.0-1.3); Monocytes % 6.8 %; Neutrophils # 6.6 K/mcL (1.6-8.9); Platelet Count 205 K/mcL (140-400); Red Blood Count 5.23 M/mcL (3.82-4.97); Red Cell Distribution Width 15.9 % (11.5-14.5); Segmented Neutrophils % 75.1 %
[2018-10-11 05:01] LABS: INR 2.1; Prothrombin Time 24.1 Seconds (9.4-12.1)
[2018-10-11 05:10] LABS: Potassium 3.8 mEq/L (3.5-5.1)
[2018-10-11] MEDS: Insulin LISPRO 300 UNITS/3 ML VIAL SQ SCH ×4 (08:44→20:32)
[2018-10-11] MEDS: Metoprolol XL (24 HR) Succ 50 MG TAB.ER.24H PO SCH ×2 (08:44→20:33)
[2018-10-11] MEDS: amLODIPine 5 MG TABLET PO SCH (08:44)
[2018-10-11] MEDS: Furosemide 20 MG/2 ML VIAL IVP SCH ×2 (08:45→17:06)
[2018-10-11] MEDS ORDERED: ALPRAZolam 0.25 MG TABLET PO PRN (12:08)
--- NOTE | 2018-10-11 12:10 | Internal Med Progress Note ---
Hospitalist Progress Note - Encounter Date of Encounter: 10/11/18 Time of Encounter: 12:04 - Subjective Interval History: Was seen and examined at bedside I did discuss with the patient to treatment plan explained but does take time to diurese the patient and that she will have to stay 1 more night. I also reviewed chest x-ray findings Patient verbalized understanding - Exam Vitals: Temp Pulse Resp BP Pulse Ox 97.9 F 51 16 132/82 92 10/11/18 11:00 10/11/18 11:00 10/11/18 11:00 10/11/18 11:00 10/11/18 11:00 Exam: Skin: Free of rash and discoloration. Eyes: Sclera is white. There is no discharge from eyes. ENMT: Oral/pharyngeal mucosa is normal in appearance. There is no discharge from nose or ears. Respiratory: Normal breath sounds with no wheezes bilaterally. Faint crackles in bases CV: Heart is regular with no gallop or murmur. GI: Abdomen is flat and soft with no palpable mass or visceromegaly. : There is no tenderness in patient's flanks bilaterally. Neuro exam: He has good strength in upper and lower extremities. He has normal eye movements. Psychiatric: He has normal affect. His thought process is appropriate to the situation. . - Assessment and Plan (1) CHF exacerbation Current Visit: Yes Status: Acute Assessment and Plan: 1 has Leiva parenting increasing shortness of breath on exertion over the past month worsening within the past week he is she is unable complete her ADLs. Has had lower extremity swelling as well as orthopnea 5 pound weight gain over the past week. Continuous cardiac monitoring Patient is on Lasix 20 mg daily at home we will place on 40 mg twice a day IV- creatinine is stable at this time we will continue to watch closely Strict intake and output low-sodium diet with 1.5 mL fluid restriction-patient's weight is down 1 pound today Daily weights cardiac echo LVEF 60-65%. Indeterminate diastolic function. RV is mildly dilated with normal function. Bi-atrial enlargement. Mild mitral regurgitation. Mild tricuspid regurgitation. Borderline mild pulmonary hypertension. Consult cardiology as needed Oxygen as needed to maintain SPO2 greater than 90% (2) Acute respiratory failure with hypoxia Current Visit: Yes Status: Acute Assessment and Plan: Secondary to CHF exacerbation-presented with oxygen saturations in the 80s on room air -currently oxygen is being weaned per nursing staff Patient did qualify for oxygen after 6 minute walk (3) CKD (chronic kidney disease) Current Visit: No Status: Chronic Assessment and Plan: 1 history of CK disease stage III baseline creatinine 1.57- 1.8- today 1.83 will continue to monitor closely and diuresis patient Avoid nephrotoxins Monitor intake and output daily weights (4) Hypoxia Current Visit: Yes Status: Acute Assessment and Plan: Secondary to CHF exacerbation continue with oxygen support (5) Diabetes mellitus Current Visit: No Status: Chronic Assessment and Plan: Hold oral tcahax-Wxpy-Yfkne before meals at bedtime for sinus scale insulin (6) DVT prophylaxis Current Visit: Yes Status: Acute Assessment and Plan: On Coumadin (7) Afib Current Visit: No Status: Chronic Assessment and Plan: History of chronic atrial fibrillation currently rate controlled continue with Coumadin anticoagulation -pharmacy to dose -continue with metoprolol - Time Spent with Patient Total time spent is greater than 50% in coordination of care (as documented) at patient's floor/unit and/or counseling patient: Internal Medicine: Result - Labs CBC & Chem 7: 10/11/18 03:57 10/11/18 03:57 Labs: Short CBC 10/11/18 Range/Units 03:57 WBC 8.8 (4.3-11.1) K/mcL Hgb 16.0 H (11.5-15.4) g/dL Hct 49.4 H (35.3-44.9) % Plt Count 205 (140-400) K/mcL Neutrophils # 6.6 (1.6-8.9) K/mcL BMP 10/11/18 03:57 Sodium 137 Potassium 3.8 Chloride 100 Carbon Dioxide 27 BUN 43 H Creatinine 1.84 H Glucose 191 H Calcium 10.0 - ABG Interpretation ABG results: PT/INR, D-dimer PT 24.1 Seconds (9.4-12.1) H 10/11/18 03:57 Consult Discharge Plan - Plan Additional Instructions: Home oxygen has been set up through [facility]. You will need to call them when you get home to have them deliver equipment. Their number is #[phone]. Referrals: [facility] [Provider Group] (Appointment has been requested. Our office will call with an appointment time and date.) Dayron Dan MD [Partnered Physician] - 10/16/18 10:45 am (Please arrive 15 minutes early to appointment to fill out paperwork. Please bring ID, insurance cards, and medications in bottles. If you need to cancel or rescedule please call 24 hours ahead of time at [phone].) (1) CHF exacerbation Qualifiers: Heart failure type: diastolic Qualified Code(s): I50.33 - Acute on chronic diastolic (congestive) heart failure (3) CKD (chronic kidney disease) Qualifiers: Chronic kidney disease stage: stage 3 (moderate) Qualified Code(s): N18.3 - Chronic kidney disease, stage 3 (moderate) (5) Diabetes mellitus Qualifiers: Diabetes mellitus type: type 2 Diabetes mellitus [facility] insulin use: with termite control representative use Diabetes mellitus complication status: with neurologic complications Diabetes mellitus complication detail: with unspecified neuropathy Qualified Code(s): E11.40 - Type 2 diabetes mellitus with diabetic neuropathy, unspecified; Z79.4 - meterman (current) use of insulin; Z79.4 - assisted (current) use of insulin; Z79.4 - assisted (current) use of insulin; Z79.4 - meterman (current) use of insulin (7) Afib Qualifiers: Atrial fibrillation type: chronic Qualified Code(s): I48.2 - Chronic atrial fibrillation
[2018-10-11] MEDS ORDERED: *HR* Warfarin 3 MG TABLET PO ONE (18:00)
[2018-10-12 04:15] LABS: Basophils % 0.1 %; Eosinophils # 0.1 K/mcL (0.0-0.6); Eosinophils % 0.8 %; Hematocrit 51.8 % (35.3-44.9); Hemoglobin 16.6 g/dL (11.5-15.4); Immature Granulocytes % 0.3 % (0-4); Lymphocytes # 1.6 K/mcL (0.6-4.6); Lymphocytes % 21.7 %; Mean Corpuscular Hemoglobin 30.2 pg (28.0-33.3); Mean Corpuscular Volume 94.4 fL (83.0-100.0); Mean Platelet Volume 11.4 fL (9.4-12.4); Monocytes # 0.6 K/mcL (0.0-1.3); Monocytes % 7.9 %; Platelet Count 217 K/mcL (140-400); Red Blood Count 5.49 M/mcL (3.82-4.97); Red Cell Distribution Width 15.7 % (11.5-14.5); Segmented Neutrophils % 69.2 %
[2018-10-12 04:22] LABS: INR 2.4; Prothrombin Time 26.7 Seconds (9.4-12.1)
[2018-10-12 04:35] LABS: Calcium 10.6 mg/dL (8.6-10.3); Potassium 3.8 mEq/L (3.5-5.1)
[2018-10-12] MEDS: Insulin LISPRO 300 UNITS/3 ML VIAL SQ SCH ×4 (08:27→20:16)
[2018-10-12] MEDS: amLODIPine 5 MG TABLET PO SCH (08:27)
[2018-10-12] MEDS: Metoprolol XL (24 HR) Succ 50 MG TAB.ER.24H PO SCH ×2 (08:27→20:16)
[2018-10-12] MEDS: Furosemide 20 MG/2 ML VIAL IVP SCH ×2 (08:27→17:35)
--- NOTE | 2018-10-12 11:15 | Internal Med Progress Note ---
Hospitalist Progress Note - Encounter Date of Encounter: 10/13/18 Time of Encounter: 11:15 - Subjective Interval History: Patient was see and examined at bedside- discussed treatment plan with patient and daughter who is at bedside. Also reviewed CXR results Anticipate discharge in AM if lab work is stable - Exam Vitals: Temp Pulse Resp BP Pulse Ox 97.4 F L 67 16 119/69 95 10/12/18 11:08 10/12/18 11:08 10/12/18 11:08 10/12/18 11:08 10/12/18 11:08 Exam: Skin: Free of rash and discoloration. Eyes: Sclera is white. There is no discharge from eyes. ENMT: Oral/pharyngeal mucosa is normal in appearance. There is no discharge from nose or ears. Respiratory: Normal breath sounds with no wheezes bilaterally. Faint crackles in bases CV: Heart is regular with no gallop or murmur. GI: Abdomen is flat and soft with no palpable mass or visceromegaly. : There is no tenderness in patient's flanks bilaterally. Neuro exam: He has good strength in upper and lower extremities. He has normal eye movements. Psychiatric: He has normal affect. His thought process is appropriate to the situation. . - Assessment and Plan (1) CHF exacerbation Current Visit: Yes Status: Acute Assessment and Plan: 1 has Leiva parenting increasing shortness of breath on exertion over the past month worsening within the past week he is she is unable complete her ADLs. Has had lower extremity swelling as well as orthopnea 5 pound weight gain over the past week. Continuous cardiac monitoring Patient is on Lasix 20 mg daily at home we will place on 40 mg twice a day IV- creatinine is stable at this time we will continue to watch closely Strict intake and output low-sodium diet with 1.5 mL fluid restriction-patient's weight is down 1 pound today Daily weights cardiac echo LVEF 60-65%. Indeterminate diastolic function. RV is mildly dilated with normal function. Bi-atrial enlargement. Mild mitral regurgitation. Mild tricuspid regurgitation. Borderline mild pulmonary hypertension. Consult cardiology as needed Oxygen as needed to maintain SPO2 greater than 90% (2) Acute respiratory failure with hypoxia Current Visit: Yes Status: Acute Assessment and Plan: Secondary to CHF exacerbation-presented with oxygen saturations in the 80s on room air -currently oxygen is being weaned per nursing staff Patient did qualify for oxygen after 6 minute walk- 94- 95% on RA at rest (3) CKD (chronic kidney disease) Current Visit: No Status: Chronic Assessment and Plan: 1 history of CK disease stage III baseline creatinine 1.57- 1.8- today 1.86 will continue to monitor closely and diuresis patient Avoid nephrotoxins Monitor intake and output daily weights (4) Hypoxia Current Visit: Yes Status: Acute Assessment and Plan: Secondary to CHF exacerbation continue with oxygen support (5) Diabetes mellitus Current Visit: No Status: Chronic Assessment and Plan: Hold oral zrefxw-Zsei-Dyoha before meals at bedtime for sinus scale insulin (6) DVT prophylaxis Current Visit: Yes Status: Acute Assessment and Plan: On Coumadin (7) Afib Current Visit: No Status: Chronic Assessment and Plan: History of chronic atrial fibrillation currently rate controlled continue with Coumadin anticoagulation -pharmacy to dose -continue with metoprolol - Time Spent with Patient Total time spent is greater than 50% in coordination of care (as documented) at patient's floor/unit and/or counseling patient: Internal Medicine: Result - Labs CBC & Chem 7: 10/12/18 03:49 10/13/18 04:28 Labs: Short CBC 10/12/18 Range/Units 03:49 WBC 7.2 (4.3-11.1) K/mcL Hgb 16.6 H (11.5-15.4) g/dL Hct 51.8 H (35.3-44.9) % Plt Count 217 (140-400) K/mcL Neutrophils # 5.0 (1.6-8.9) K/mcL BMP 10/12/18 03:49 Sodium 137 Potassium 3.8 Chloride 97 L Carbon Dioxide 29 BUN 47 H Creatinine 1.92 H Glucose 235 H Calcium 10.6 H - ABG Interpretation ABG results: PT/INR, D-dimer PT 26.7 Seconds (9.4-12.1) H 10/12/18 03:49 Consult Discharge Plan - Plan Additional Instructions: Home oxygen has been set up through [facility]. You will need to call them when you get home to have them deliver equipment. Their number is #[phone]. Referrals: [facility] [Provider Group] (Appointment has been requested. Our office will call with an appointment time and date.) Dayron Dan MD [Partnered Physician] - 10/16/18 10:45 am (Please arrive 15 minutes early to appointment to fill out paperwork. Please bring ID, insurance cards, and medications in bottles. If you need to cancel or rescedule please call 24 hours ahead of time at [phone].) (1) CHF exacerbation Qualifiers: Heart failure type: diastolic Qualified Code(s): I50.33 - Acute on chronic diastolic (congestive) heart failure (3) CKD (chronic kidney disease) Qualifiers: Chronic kidney disease stage: stage 3 (moderate) Qualified Code(s): N18.3 - Chronic kidney disease, stage 3 (moderate) (5) Diabetes mellitus Qualifiers: Diabetes mellitus type: type 2 Diabetes mellitus senior care insulin use: with senior care use Diabetes mellitus complication status: with neurologic complications Diabetes mellitus complication detail: with unspecified neuropathy Qualified Code(s): E11.40 - Type 2 diabetes mellitus with diabetic neuropathy, unspecified; Z79.4 - [employer] (current) use of insulin; Z79.4 - Lo ng term (current) use of insulin; Z79.4 - [employer] (current) use of insulin; Z79.4 - skilled nursing (current) use of insulin (7) Afib Qualifiers: Atrial fibrillation type: chronic Qualified Code(s): I48.2 - Chronic atrial fibrillation
[2018-10-12] MEDS ORDERED: *HR* Warfarin 2.5 MG TABLET PO ONE (18:00)
[2018-10-13 05:50] LABS: INR 2.6; Prothrombin Time 29.1 Seconds (9.4-12.1)
[2018-10-13 08:40] LABS: Calcium 10.1 mg/dL (8.6-10.3); Potassium 3.9 mEq/L (3.5-5.1)
[2018-10-13] MEDS: Insulin LISPRO 300 UNITS/3 ML VIAL SQ SCH ×4 (09:10→21:20)
[2018-10-13] MEDS: Metoprolol XL (24 HR) Succ 50 MG TAB.ER.24H PO SCH ×2 (09:10→21:20)
[2018-10-13] MEDS: Furosemide 20 MG/2 ML VIAL IVP SCH ×2 (09:10→16:58)
[2018-10-13] MEDS ORDERED: *HR* Warfarin 2.5 MG TABLET PO ONE (18:00)
[2018-10-14 04:43] LABS: INR 2.7; Prothrombin Time 29.9 Seconds (9.4-12.1)
[2018-10-14 04:56] LABS: Calcium 9.7 mg/dL (8.6-10.3); Potassium 3.6 mEq/L (3.5-5.1)
[2018-10-14] MEDS: Metoprolol XL (24 HR) Succ 50 MG TAB.ER.24H PO SCH (08:57)
[2018-10-14] MEDS: Furosemide 20 MG/2 ML VIAL IVP SCH (08:57)
[2018-10-14] MEDS: Insulin LISPRO 300 UNITS/3 ML VIAL SQ SCH (08:58)
--- NOTE | 2018-10-14 10:56 | Discharge Summary ---
- NOTES TO OUTPATIENT PROVIDER Notes to Outpatient Provider: f/u with PCP within a week check RFP. Orders not resulted at time of discharge: Pending orders 10/15/18 04:00 INR/PT [Prothrombin Time INR] [COAG] AM 0400 10/16/18 04:00 INR/PT [Prothrombin Time INR] [COAG] AM 0400 Date of Encounter: 10/14/18 Time of Encounter: 10:53 - Discharge Diagnosis (1) Afib Priority: Secondary Status: Chronic Qualifiers: Atrial fibrillation type: chronic Qualified Code(s): I48.2 - Chronic atrial fibrillation (2) Diabetes mellitus Priority: Secondary Status: Chronic Qualifiers: Diabetes mellitus type: type 2 Diabetes mellitus assisted insulin use: with assisted use Diabetes mellitus complication status: with neurologic complications Diabetes mellitus complication detail: with unspecified neuropathy Qualified Code(s): E11.40 - Type 2 diabetes mellitus with diabetic neuropathy, unspecified; Z79.4 - [facility] (current) use of insulin; Z79.4 - [facility] (current) use of insulin; 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; 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 Velasco is a 83 year old female Past history medical history of CKD stage 3, CHF, insulin-dependent diabetic presented with worsening shortness of breath on exertion. Has been experiencing increasing shortness of breath over the past month. She has been seen by her outpatient provider who has been attempting to diurese her as an outpatient without success. Today patient states she was unable to sleep at night and was not able to lie flat and slept in a chair. She has had lower extremity swelling and is unable to complete her ADLs due to increasing shortness of breath. She has also noted a 5 pound weight gain over the past week. Chest x-ray was completed which did show pulmonary congestion indicative of CHF, BNP was elevated at 328-oxygen saturations were 80% on room air and she required supplemental oxygen. Patient normally does not wear oxygen at home. She has been admitted for further work up and evaluation. She was started on IV lasix at 40 mg BID, her volume status gradually improved. O2 requirement has decreased to 2L/min. Pt will be discharged home today. Home O2 was set up. She was instructed to take oral Lasix at 40 mg bid instead of 20 mg daily. She will seen PCP next week to check RFP. CHF self care including daily weight, BP check, fluid and salt restriction was discussed with pt again and she verbally understands. Discharge discussed with: patient, family Time spent discussing smoking cessation with patient: more than 10 minutes - Time Spent with Patient Total time spent providing and/or coordinating discharge services: Time spent: Greater than 30 minutes - Discharge Medications Prescriptions: New Furosemide [Lasix] 40 mg PO BIDDIURETIC #60 tablet Continue Allopurinol [Zyloprim] 300 mg PO DAILY amLODIPine [Norvasc] 10 mg PO DAILY Calcitriol 0.5 mcg PO DAILY Insulin ASPART [Novolog Flexpen] 15 unit SQ TID Insulin DETEMIR [Levemir Flextouch] 47 unit SQ QPM Metoprolol XL (24 HR) Succ [Toprol Xl] 50 mg PO BID Ergocalciferol (VITAMIN D2) [Vitamin D2] 50,000 unit PO 2XW Warfarin [Coumadin] 2.5 mg PO QAM Discontinued Furosemide [Lasix] 20 mg PO DAILY Home Medications: Allopurinol [Zyloprim] 300 mg PO DAILY 11/03/17 [History] Calcitriol 0.5 mcg PO DAILY 11/03/17 [History] Ergocalciferol (VITAMIN D2) [Vitamin D2] 50,000 unit PO 2XW 11/03/17 [History] Insulin ASPART [Novolog Flexpen] 15 unit SQ TID 11/03/17 [History] Insulin DETEMIR [Levemir Flextouch] 47 unit SQ QPM 11/03/17 [History] Metoprolol XL (24 HR) Succ [Toprol Xl] 50 mg PO BID 11/03/17 [History] amLODIPine [Norvasc] 10 mg PO DAILY 11/03/17 [History] Warfarin [Coumadin] 2.5 mg PO QAM 10/09/18 [History] Furosemide [Lasix] 40 mg PO BIDDIURETIC #60 tablet 10/14/18 [Rx] Allergies/Adverse Reactions: Allergy/AdvReac Type Severity Reaction Status Date / Time Penicillins Allergy Rash Verified 10/09/18 14:01 Date of admission: 10/09/18 12:51 Primary care physician: Addi Laguerre Consults: 10/09/18 08:40 Consult to Nurse Navigator [CONS] Routine Comment: CHF 10/12/18 13:30 Consult to Physical Therapy [CONS] Routine Comment: Evaluate, develop and implement POC Reason for Consult: weakness Does patient have active BEDREST order?: No Is patient medically & hemodynamically stable?: Yes Patient assessed for mobility or mobilized this visit?: Yes 10/12/18 13:31 Consult to Occupational Therapy [CONS] Routine Comment: Evaluate, develop and implement POC Reason for Consult: weakness Does patient have active BEDREST order?: No Is patient medically & hemodynamically stable?: Yes Patient assessed for mobility or mobilized this visit?: Yes Anticipated date of discharge: 10/14/18 - Constitutional Vitals: Temp Pulse Resp BP Pulse Ox 97.6 F 78 18 142/84 96 10/14/18 07:42 10/14/18 07:42 10/14/18 07:42 10/14/18 07:42 10/14/18 07:42 General appearance: Present: A&O X 3 Exam: Skin: Free of rash and discoloration. Eyes: Sclera is white. There is no discharge from eyes. ENMT: Oral/pharyngeal mucosa is normal in appearance. There is no discharge from nose or ears. Respiratory: Normal breath sounds with no wheezes bilaterally. Faint crackles in bases CV: Heart is regular with no gallop or murmur. GI: Abdomen is flat and soft with no palpable mass or visceromegaly. : There is no tenderness in patient's flanks bilaterally. Neuro exam: He has good strength in upper and lower extremities. He has normal eye movements. Psychiatric: He has normal affect. His thought process is appropriate to the situation. . - Patient Status Disposition: Home, Self-Care Condition: Fair Functional capacity at discharge: independent ambulation Overall status at discharge: patient is progressing back to baseline - Discharge Instructions Follow Up With: [facility] [Provider Group] (Appointment has been requested. Our office will call with an appointment time and date.) Dayron Dan MD [Partnered Physician] - 10/16/18 10:45 am (Please arrive 15 minutes early to appointment to fill out paperwork. Please bring ID, insurance cards, and medications in bottles. If you need to cancel or rescedule please call 24 hours ahead of time at [phone].) Additional Instructions: Home oxygen has been set up through [facility]. You will need to call them when you get home to have them deliver equipment. Their number is #[phone]. - Diet and Activity Activity: increase activity as tolerated Diet: diabetic diet
[2018-10-14 11:59] VITALS: BP 130/80
--- NOTE | 2018-10-14 13:00 | Physician Discharge Referral ---
Home Health/Hosp Referral Info Transfer to: Home Health Provider in Charge Post Discharge: PCP - Diagnosis (1) Afib Priority: Secondary Status: Chronic (2) Diabetes mellitus Priority: Secondary Status: Chronic (3) Hypoxia Priority: Primary Status: Acute (4) CHF exacerbation Priority: Primary Status: Acute (5) CKD (chronic kidney disease) Priority: Secondary Status: Chronic (6) Acute respiratory failure with hypoxia Priority: Primary Status: Acute (7) DVT prophylaxis Priority: Primary Status: Acute - Respiratory Orders Smoking Cessation: Smoking cessation has been advised. For more information, call the [place] Tobacco Quit Line at 0-377-KQPZNOW. - Services Needed Following services are medically necessary services: Nursing, Home Health Aide, Physical Therapy, Occupational Therapy - Transfer Medications Prescriptions: Furosemide [Lasix] 40 mg PO BIDDIURETIC #60 tablet Home Medications: Allopurinol [Zyloprim] 300 mg PO DAILY 11/03/17 [History] Calcitriol 0.5 mcg PO DAILY 11/03/17 [History] Ergocalciferol (VITAMIN D2) [Vitamin D2] 50,000 unit PO 2XW 11/03/17 [History] Insulin ASPART [Novolog Flexpen] 15 unit SQ TID 11/03/17 [History] Insulin DETEMIR [Levemir Flextouch] 47 unit SQ QPM 11/03/17 [History] Metoprolol XL (24 HR) Succ [Toprol Xl] 50 mg PO BID 11/03/17 [History] amLODIPine [Norvasc] 10 mg PO DAILY 11/03/17 [History] Warfarin [Coumadin] 2.5 mg PO QAM 10/09/18 [History] Furosemide [Lasix] 40 mg PO BIDDIURETIC #60 tablet 10/14/18 [Rx] Allergies/Adverse Reactions: Allergy/AdvReac Type Severity Reaction Status Date / Time Penicillins Allergy Rash Verified 10/09/18 14:01 Certification: Further, I certify that my clinical findings support that this patient is homebound (i.e. absences from home require considerable and taxing effort and are for medical reasons or scientologist services or infrequently or short duration when for other reasons) because: Homebound Reason: Patient requires assistance of a person or device to safely leave home Attestation: My signature below is to certify that this patient is under my care and that I, or nurse practitioner, or a physician's programs assistant working with me, has a [id number] encounter with this patient.
[2018-10-14] MEDS ORDERED: Furosemide 40 MG TABLET PO SCH (17:00)
[2018-10-14] MEDS ORDERED: *HR* Warfarin 2.5 MG TABLET PO ONE (18:00)
== END 2018-10-14 12:40 | disposition home or self-care (01) | DRG 291 ==
LOC: 3BNU 10:46 → EMEROOARM 10:46 → 3BNU 14:16
PROVIDERS: ADMIT Internal Medicine; ATTEND Internal Medicine

== ENCOUNTER 2019-03-10 08:20 | Inpatient (IN) ==
[2019-03-10] MEDS ORDERED: Furosemide 40 MG/4 ML VIAL IVP ONE ×2 (08:36→11:57)
[2019-03-10 08:56] LABS: Basophils % 0.3 %; Eosinophils # 0.1 K/mcL (0.0-0.6); Eosinophils % 1.8 %; Hemoglobin 13.5 g/dL (11.5-15.4); Immature Granulocytes % 0.4 % (0-4); Lymphocytes # 1.8 K/mcL (0.6-4.6); Mean Corpuscular HGB Conc 32.9 g/dL (31.6-35.5); Mean Platelet Volume 10.9 fL (9.4-12.4); Monocytes # 0.6 K/mcL (0.0-1.3); Neutrophils # 5.5 K/mcL (1.6-8.9); Platelet Count 227 K/mcL (140-400); Red Blood Count 4.36 M/mcL (3.82-4.97); Red Cell Distribution Width 14.9 % (11.5-14.5); Segmented Neutrophils % 68.5 %
[2019-03-10 09:06] LABS: Alanine Aminotransferase 10 Units/L (7-52); Albumin/Globulin Ratio 1.4 (1.1-2.2); Alkaline Phosphatase 94 Units/L (34-104); Aspartate Amino Transferase 19 Units/L (13-39); BUN/Creatinine Ratio 15 (6-26); Bilirubin,Direct 0.2 mg/dL (0.0-0.2); Bilirubin,Total 1.2 mg/dL (0.3-1.0); Blood Urea Nitrogen 33 mg/dL (8-23); Calcium 10.6 mg/dL (8.6-10.3); Carbon Dioxide 32 mEq/L (23-29); Chloride 98 mEq/L (98-107); Globulin 2.8 g/dL (2.4-3.5); Glucose 120 mg/dL (70-105); Osmolality,Calculated 298 (280-300); Potassium 3.9 mEq/L (3.5-5.1); Sodium 140 mEq/L (136-145); Total Protein 6.8 g/dL (6.4-8.9); Troponin I < 0.03 ng/mL (< 0.04); eGFR For African Americans 25 (> 60); eGFR For Non-African Americans 21 (> 60)
[2019-03-10 10:37] LABS: INR 1.6; Prothrombin Time 18.6 Seconds (9.4-12.1)
[2019-03-10 10:39] LABS: Activated Partial Thrombo Time 39.8 Seconds (26.0-36.0)
--- NOTE | 2019-03-10 11:18 | Emergency Department Note ---
Disposition Clinical Impression: ESTRELLITA (acute kidney injury) CHF exacerbation Qualifiers: Heart failure type: unspecified Qualified Code(s): I50.9 - Heart failure, unspecified Disposition: Admitted As Inpatient Condition: Good Time of Disposition: 11:19 General Adult HPI - General Chief complaint: ED Extremity Problem,Nontraumatic Stated complaint: Increased weight gain, CHF Time Seen by Provider: 03/10/19 08:25 Source: patient, family Mode of arrival: private vehicle Limitations: no limitations Nursing Notes Reviewed: Yes Vital Signs Reviewed: Yes - History of Present Illness Pt Subjective Complaint: "Gained a few pounds" Onset (ago): day(s) Location: left, right, lower extremity Radiation: other Pain Severity: similar to prior episodes Pain Scale: 0 Quality: other Consistency: constant Improves with: nothing Worsens with: nothing Associated symptoms: Reports: shortness of breath Treatments Prior to Arrival: other (diuretic) - Related Data Home Medications Medication Instructions Recorded Confirmed Allopurinol [Zyloprim] 300 mg PO DAILY 11/03/17 03/10/19 Calcitriol 0.5 mcg PO DAILY 11/03/17 03/10/19 Ergocalciferol (VITAMIN D2) 50,000 unit PO FR 11/03/17 03/10/19 [Vitamin D2] Insulin ASPART [Novolog Flexpen] 8 unit SQ TID 11/03/17 03/10/19 Insulin DETEMIR [Levemir Flextouch] 18 unit SQ QPM 11/03/17 03/10/19 Metoprolol XL (24 HR) Succ [Toprol 50 mg PO BID 11/03/17 03/10/19 Xl] amLODIPine [Norvasc] 10 mg PO DAILY 11/03/17 03/10/19 Warfarin [Coumadin] 2.5 mg PO 2359 10/09/18 03/10/19 Previous Rx's Medication Instructions Recorded Furosemide [Lasix] 60 mg PO DAILY #45 tab 03/14/19 Allergies Allergy/AdvReac Type Severity Reaction Status Date / Time Penicillins Allergy Rash Verified 03/10/19 13:51 atorvastatin [From Lipitor] AdvReac Muscle Pain Verified 03/10/19 13:51 nitrofurantoin AdvReac Nausea Verified 03/10/19 13:51 All systems ED: reviewed and negative except as stated. Review of Systems: As Per HPI Constitutional: Denies: fever, chills, weakness, weight change Cardiovascular: Reports: dyspnea on exertion, orthopnea. Denies: chest pain, palpitations, edema, syncope Respiratory: Denies: cough, dyspnea, wheezes, hemoptysis, stridor, sputum production Gastrointestinal: Denies: abdominal pain, nausea, vomiting Genitourinary: Denies: urgency, dysuria, frequency, hematuria Musculoskeletal: Denies: back pain, neck pain, joint swelling, arthralgia, myalgia Integumentary: Denies: rash Neurological: Denies: weakness, confusion, vertigo Allergic/Immunologic: Reports: facial swelling Past Medical History - Past Medical History Attestation: Yes The following information was validated with the patient. Source: patient Medical history: Reports: atrial fibrillation, diabetes, hypertension, renal disease Surgical history: Reports: no surgical history Psychiatric history: Reports: no psych history - Social History Smoking Status: Never smoker Smokeless Tobacco Status: No Alcohol use: Reports: none Drug use: Reports: none Physical Exam - General Limitations: no limitations General appearance: alert, in no apparent distress - Head Head exam: atraumatic, normocephalic, normal inspection - Eye Eye exam: Present: normal appearance, PERRL, EOMI, periorbital swelling (mild, inferior). Absent: scleral icterus, conjunctival injection - ENT ENT exam: mucous membranes dry - Neck Neck exam: Present: normal inspection, trachea midline. Absent: meningismus - Respiratory Respiratory exam: Absent: respiratory distress, wheezes, stridor, accessory muscle use, prolonged expiratory phase - Expanded Respiratory Exam Location: rales: Left, Right, Lower - Cardiovascular Cardiovascular exam: Present: regular rate, irregular rhythm - Abdominal Exam Abdominal exam: Present: soft, Non-Tender. Absent: ascites - Extremities Exam Extremities exam: Present: normal capillary refill, pedal edema. Absent: tenderness, joint swelling, calf tenderness - Back Exam Back exam: Present: normal inspection - Neurological Exam Neurological exam: Present: alert, oriented X3, CN II-XII intact, normal gait - Psychiatric Psychiatric exam: Present: normal affect, normal mood - Skin Skin exam: Present: warm, dry, intact, normal color Course Vital Signs Temperature 97.6 F 03/10/19 08:21 Pulse Rate 66 03/10/19 08:21 Respiratory Rate 18 03/10/19 08:21 Blood Pressure 133/64 03/10/19 08:21 O2 Sat by Pulse Oximetry 97 03/10/19 08:21 Temperature 97.7 F 03/14/19 07:36 Pulse Rate 63 03/14/19 07:36 Respiratory Rate 15 03/14/19 07:36 Blood Pressure 129/69 03/14/19 07:36 O2 Sat by Pulse Oximetry 93 03/14/19 07:36 Oxygen Delivery Oxygen Delivery Room Air Medical Decision Making - Medical Records Medical records reviewed: Yes I reviewed the patient's medical records. - Lab Data Lab results reviewed: Yes I reviewed the patient's lab results. Lab results narrative: Laboratory Last Values WBC 8.0 K/mcL (4.3-11.1) 03/10/19 08:37 RBC 4.36 M/mcL (3.82-4.97) 03/10/19 08:37 Hgb 13.5 g/dL (11.5-15.4) 03/10/19 08:37 Hct 41.0 % (35.3-44.9) 03/10/19 08:37 MCV 94.0 fL (83.0-100.0) 03/10/19 08:37 MCH 31.0 pg (28.0-33.3) 03/10/19 08:37 MCHC 32.9 g/dL (31.6-35.5) 03/10/19 08:37 RDW 14.9 % (11.5-14.5) H 03/10/19 08:37 Plt Count 227 K/mcL (140-400) 03/10/19 08:37 MPV 10.9 fL (9.4-12.4) 03/10/19 08:37 Immature Gran % 0.4 % (0-4) 03/10/19 08:37 Seg Neutrophils % 68.5 % 03/10/19 08:37 Lymphocytes % 22.0 % 03/10/19 08:37 Monocytes % 7.0 % 03/10/19 08:37 Eosinophils % 1.8 % 03/10/19 08:37 Basophils % 0.3 % 03/10/19 08:37 Neutrophils # 5.5 K/mcL (1.6-8.9) 03/10/19 08:37 Lymphocytes # 1.8 K/mcL (0.6-4.6) 03/10/19 08:37 Monocytes # 0.6 K/mcL (0.0-1.3) 03/10/19 08:37 Eosinophils # 0.1 K/mcL (0.0-0.6) 03/10/19 08:37 Basophils # 0.0 K/mcL (0.0-0.2) 03/10/19 08:37 PT 18.6 Seconds (9.4-12.1) H 03/10/19 08:37 INR 1.6 03/10/19 08:37 APTT 39.8 Seconds (26.0-36.0) H 03/10/19 08:37 Sodium 140 mEq/L (136-145) 03/10/19 08:37 Potassium 3.9 mEq/L (3.5-5.1) 03/10/19 08:37 Chloride 98 mEq/L (98-107) 03/10/19 08:37 Carbon Dioxide 32 mEq/L (23-29) H 03/10/19 08:37 BUN 33 mg/dL (8-23) H 03/10/19 08:37 Creatinine 2.23 mg/dL (0.60-1.20) H 03/10/19 08:37 Est GFR ( Amer) 25 (> 60) L 03/10/19 08:37 Est GFR (Non-Af Amer) 21 (> 60) L 03/10/19 08:37 BUN/Creatinine Ratio 15 (6-26) 03/10/19 08:37 Glucose 120 mg/dL (70-105) H 03/10/19 08:37 POC Glucose 74 mg/dL (70-99) 03/10/19 11:10 Calculated Osmolality 298 (280-300) 03/10/19 08:37 Lactic Acid 1.3 mmol/L (0.5-2.2) 03/10/19 08:45 Calcium 10.6 mg/dL (8.6-10.3) H 03/10/19 08:37 Total Bilirubin 1.2 mg/dL (0.3-1.0) H 03/10/19 08:37 Direct Bilirubin 0.2 mg/dL (0.0-0.2) 03/10/19 08:37 Indirect Bilirubin 1.0 mg/dL (0.0-1.2) 03/10/19 08:37 AST 19 Units/L (13-39) 03/10/19 08:37 ALT 10 Units/L (7-52) 03/10/19 08:37 Alkaline Phosphatase 94 Units/L (34-104) 03/10/19 08:37 Troponin I < 0.03 ng/mL (< 0.04) 03/10/19 08:37 B-Natriuretic Peptide 340 pg/mL (Less than 100) H 03/10/19 08:37 Serum Total Protein 6.8 g/dL (6.4-8.9) 03/10/19 08:37 Albumin 4.0 g/dL (3.5-5.7) 03/10/19 08:37 Globulin 2.8 g/dL (2.4-3.5) 03/10/19 08:37 Albumin/Globulin Ratio 1.4 (1.1-2.2) 03/10/19 08:37 Urine Color Yellow (Yellow) 03/10/19 11:05 Urine Clarity Clear (Clear) 03/10/19 11:05 Urine pH 6.0 pH Units (5.0-8.0) 03/10/19 11:05 Ur Specific [place] 1.012 (1.010-1.025) 03/10/19 11:05 Urine Protein Negative mg/dL (Neg-Trace) 03/10/19 11:05 Urine Glucose (UA) Normal mg/dL (Normal) 03/10/19 11:05 Urine Ketones Negative mg/dL (Negative) 03/10/19 11:05 Urine Blood Negative (Negative) 03/10/19 11:05 Urine Nitrite Negative (Negative) 03/10/19 11:05 Urine Bilirubin Negative (Negative) 03/10/19 11:05 Urine Urobilinogen Normal mg/dL (Normal) 03/10/19 11:05 Ur Leukocyte Esterase Trace (Negative) H 03/10/19 11:05 Urine Microscopic RBC 0-3 per hpf (0-3) 03/10/19 11:05 Urine Microscopic WBC 5-15 per hpf (0-3) H 03/10/19 11:05 Ur Squamous Epith Cells Many per lpf (None-Few) H 03/10/19 11:05 Urine Bacteria None Seen per hpf (None-Few) 03/10/19 11:05 Hyaline Casts None Seen per lpf (None-Few) 03/10/19 11:05 Ur Culture Indicated? YES (NO) A 03/10/19 11:05 Result diagrams: 03/11/19 00:25 03/14/19 06:25 Lab Results 03/10/19 03/10/19 03/10/19 Range/Units 08:37 08:37 08:37 WBC 8.0 (4.3-11.1) K/mcL RBC 4.36 (3.82-4.97) M/mcL Hgb 13.5 (11.5-15.4) g/dL Hct 41.0 (35.3-44.9) % MCV 94.0 (83.0-100.0) fL MCH 31.0 (28.0-33.3) pg MCHC 32.9 (31.6-35.5) g/dL RDW 14.9 H (11.5-14.5) % Plt Count 227 (140-400) K/mcL MPV 10.9 (9.4-12.4) fL Immature Gran % 0.4 (0-4) % Seg Neutrophils % 68.5 % Lymphocytes % 22.0 % Monocytes % 7.0 % Eosinophils % 1.8 % Basophils % 0.3 % Neutrophils # 5.5 (1.6-8.9) K/mcL Lymphocytes # 1.8 (0.6-4.6) K/mcL Monocytes # 0.6 (0.0-1.3) K/mcL Eosinophils # 0.1 (0.0-0.6) K/mcL Basophils # 0.0 (0.0-0.2) K/mcL PT (9.4-12.1) Seconds INR APTT (26.0-36.0) Seconds Sodium 140 (136-145) mEq/L Potassium 3.9 (3.5-5.1) mEq/L Chloride 98 (98-107) mEq/L Carbon Dioxide 32 H (23-29) mEq/L BUN 33 H (8-23) mg/dL Creatinine 2.23 H (0.60-1.20) mg/dL Est GFR ( Amer) 25 L (> 60) Est GFR (Non-Af Amer) 21 L (> 60) BUN/Creatinine Ratio 15 (6-26) Glucose 120 H (70-105) mg/dL POC Glucose (70-99) mg/dL Calculated Osmolality 298 (280-300) Lactic Acid (0.5-2.2) mmol/L Calcium 10.6 H (8.6-10.3) mg/dL Total Bilirubin 1.2 H (0.3-1.0) mg/dL Direct Bilirubin 0.2 (0.0-0.2) mg/dL Indirect Bilirubin 1.0 (0.0-1.2) mg/dL AST 19 (13-39) Units/L ALT 10 (7-52) Units/L Alkaline Phosphatase 94 (34-104) Units/L Troponin I < 0.03 (< 0.04) ng/mL B-Natriuretic Peptide 340 H (Less than 100) pg/mL Serum Total Protein 6.8 (6.4-8.9) g/dL Albumin 4.0 (3.5-5.7) g/dL Globulin 2.8 (2.4-3.5) g/dL Albumin/Globulin Ratio 1.4 (1.1-2.2) Urine Color (Yellow) Urine Clarity (Clear) Urine pH (5.0-8.0) pH Units Ur Specific [place] (1.010-1.025) Urine Protein (Neg-Trace) mg/dL Urine Glucose (UA) (Normal) mg/dL Urine Ketones (Negative) mg/dL Urine Blood (Negative) Urine Nitrite (Negative) Urine Bilirubin (Negative) Urine Urobilinogen (Normal) mg/dL Ur Leukocyte Esterase (Negative) Urine Microscopic RBC (0-3) per hpf Urine Microscopic WBC (0-3) per hpf Ur Squamous Epith Cells (None-Few) per lpf Urine Bacteria (None-Few) per hpf Hyaline Casts (None-Few) per lpf Ur Culture Indicated? (NO) 03/10/19 03/10/19 03/10/19 Range/Units 08:37 08:45 11:05 WBC (4.3-11.1) K/mcL RBC (3.82-4.97) M/mcL Hgb (11.5-15.4) g/dL Hct (35.3-44.9) % MCV (83.0-100.0) fL MCH (28.0-33.3) pg MCHC (31.6-35.5) g/dL RDW (11.5-14.5) % Plt Count (140-400) K/mcL MPV (9.4-12.4) fL Immature Gran % (0-4) % Seg Neutrophils % % Lymphocytes % % Monocytes % % Eosinophils % % Basophils % % Neutrophils # (1.6-8.9) K/mcL Lymphocytes # (0.6-4.6) K/mcL Monocytes # (0.0-1.3) K/mcL Eosinophils # (0.0-0.6) K/mcL Basophils # (0.0-0.2) K/mcL PT 18.6 H (9.4-12.1) Seconds INR 1.6 APTT 39.8 H (26.0-36.0) Seconds Sodium (136-145) mEq/L Potassium (3.5-5.1) mEq/L Chloride (98-107) mEq/L Carbon Dioxide (23-29) mEq/L BUN (8-23) mg/dL Creatinine (0.60-1.20) mg/dL Est GFR ( Amer) (> 60) Est GFR (Non-Af Amer) (> 60) BUN/Creatinine Ratio (6-26) Glucose (70-105) mg/dL POC Glucose (70-99) mg/dL Calculated Osmolality (280-300) Lactic Acid 1.3 (0.5-2.2) mmol/L Calcium (8.6-10.3) mg/dL Total Bilirubin (0.3-1.0) mg/dL Direct Bilirubin (0.0-0.2) mg/dL Indirect Bilirubin (0.0-1.2) mg/dL AST (13-39) Units/L ALT (7-52) Units/L Alkaline Phosphatase (34-104) Units/L Troponin I (< 0.04) ng/mL B-Natriuretic Peptide (Less than 100) pg/mL Serum Total Protein (6.4-8.9) g/dL Albumin (3.5-5.7) g/dL Globulin (2.4-3.5) g/dL Albumin/Globulin Ratio (1.1-2.2) Urine Color Yellow (Yellow) Urine Clarity Clear (Clear) Urine pH 6.0 (5.0-8.0) pH Units Ur Specific [place] 1.012 (1.010-1.025) Urine Protein Negative (Neg-Trace) mg/dL Urine Glucose (UA) Normal (Normal) mg/dL Urine Ketones Negative (Negative) mg/dL Urine Blood Negative (Negative) Urine Nitrite Negative (Negative) Urine Bilirubin Negative (Negative) Urine Urobilinogen Normal (Normal) mg/dL Ur Leukocyte Esterase Trace H (Negative) Urine Microscopic RBC 0-3 (0-3) per hpf Urine Microscopic WBC 5-15 H (0-3) per hpf Ur Squamous Epith Cells Many H (None-Few) per lpf Urine Bacteria None Seen (None-Few) per hpf Hyaline Casts None Seen (None-Few) per lpf Ur Culture Indicated? YES A (NO) 03/10/19 Range/Units 11:10 WBC (4.3-11.1) K/mcL RBC (3.82-4.97) M/mcL Hgb (11.5-15.4) g/dL Hct (35.3-44.9) % MCV (83.0-100.0) fL MCH (28.0-33.3) pg MCHC (31.6-35.5) g/dL RDW (11.5-14.5) % Plt Count (140-400) K/mcL MPV (9.4-12.4) fL Immature Gran % (0-4) % Seg Neutrophils % % Lymphocytes % % Monocytes % % Eosinophils % % Basophils % % Neutrophils # (1.6-8.9) K/mcL Lymphocytes # (0.6-4.6) K/mcL Monocytes # (0.0-1.3) K/mcL Eosinophils # (0.0-0.6) K/mcL Basophils # (0.0-0.2) K/mcL PT (9.4-12.1) Seconds INR APTT (26.0-36.0) Seconds Sodium (136-145) mEq/L Potassium (3.5-5.1) mEq/L Chloride (98-107) mEq/L Carbon Dioxide (23-29) mEq/L BUN (8-23) mg/dL Creatinine (0.60-1.20) mg/dL Est GFR ( Amer) (> 60) Est GFR (Non-Af Amer) (> 60) BUN/Creatinine Ratio (6-26) Glucose (70-105) mg/dL POC Glucose 74 (70-99) mg/dL Calculated Osmolality (280-300) Lactic Acid (0.5-2.2) mmol/L Calcium (8.6-10.3) mg/dL Total Bilirubin (0.3-1.0) mg/dL Direct Bilirubin (0.0-0.2) mg/dL Indirect Bilirubin (0.0-1.2) mg/dL AST (13-39) Units/L ALT (7-52) Units/L Alkaline Phosphatase (34-104) Units/L Troponin I (< 0.04) ng/mL B-Natriuretic Peptide (Less than 100) pg/mL Serum Total Protein (6.4-8.9) g/dL Albumin (3.5-5.7) g/dL Globulin (2.4-3.5) g/dL Albumin/Globulin Ratio (1.1-2.2) Urine Color (Yellow) Urine Clarity (Clear) Urine pH (5.0-8.0) pH Units Ur Specific [place] (1.010-1.025) Urine Protein (Neg-Trace) mg/dL Urine Glucose (UA) (Normal) mg/dL Urine Ketones (Negative) mg/dL Urine Blood (Negative) Urine Nitrite (Negative) Urine Bilirubin (Negative) Urine Urobilinogen (Normal) mg/dL Ur Leukocyte Esterase (Negative) Urine Microscopic RBC (0-3) per hpf Urine Microscopic WBC (0-3) per hpf Ur Squamous Epith Cells (None-Few) per lpf Urine Bacteria (None-Few) per hpf Hyaline Casts (None-Few) per lpf Ur Culture Indicated? (NO) - Radiology Data Radiology results reviewed: Yes I reviewed the patient's radiology results. Chest X-Ray 03/10/19 08:36 IMPRESSION: 1. Low lung volumes with findings likely reflecting congestive failure. D/ / Rubén Collado MD / Rubén Collado MD Interpreting Provider: Rubén Collado MD Echocardiogram 03/10/19 12:45 Impressions: LVEF 60-65%. Indeterminate diastolic function. Normal right ventricular structure and function. Bi-atrial enlargement. Mild-moderate mitral regurgitation. Mild tricuspid regurgitation. Mild pulmonic regurgitation. Moderate pulmonary hypertension. There is a small pericardial effusion present. No echo evidence of tamponade. A pleural effusion is present. Left Ventricular Wall Motion: Rest Echo Findings All wall segments showed normal motion. Findings: Study Quality * Technically adequate exam. ECG Findings * Atrial fibrillation. Left Ventricle * LVEF 60-65%. * Normal LV chamber size, wall thickness and function. * Indeterminate diastolic function. Right Ventricle * Normal right ventricular structure and function. Left Atrium * Moderate-severely dilated left atrium. Right Atrium * Moderate-severely dilated right atrium. Aortic Valve * No aortic regurgitation. * Trileaflet aortic valve. * Mildly calcified aortic valve leaflets. * No aortic stenosis. Mitral Valve * No mitral stenosis. * Mild-moderate mitral regurgitation. * Mildly thickened mitral valve leaflets. Tricuspid Valve * Normal tricuspid valve structure. * Mild tricuspid regurgitation. * Estimated RA pressure is 3 mmHg. * Estimated RVSP is 51 mmHg. * Moderate pulmonary hypertension. Pulmonic Valve * Pulmonic valve is not well visualized. * No pulmonic stenosis. * Mild pulmonic regurgitation. Pulmonary Artery * Pulmonary artery not well visualized. Aorta * Normally sized aortic root. Pericardium * There is a small pericardial effusion present. Pleural Effusion * A pleural effusion is present. Interatrial Septum * No evidence of PFO by color Doppler. IVC * Normal IVC dimensions and inspiratory collapse.
[2019-03-10 11:19] LABS: Bilirubin,Urine Negative (Negative); Blood,Urine Negative (Negative); Clarity,Urine Clear (Clear); Color,Urine Yellow (Yellow); Glucose,Urine (UA) Normal (Normal); Ketones,Urine Negative (Negative); Leukocyte Esterase,Urine Trace (Negative); Nitrite,Urine Negative (Negative); Protein,Urine Negative (Neg-Trace); Specific Gravity,Urine 1.012 (1.010-1.025); Urobilinogen,Urine Normal (Normal)
[2019-03-10 11:22] LABS: Bacteria,Urine None Seen per hpf (None-Few); Hyaline Casts,Urine None Seen per lpf (None-Few); RBC,Urine 0-3 per hpf (0-3); Squamous Epithelial Cell,Urine Many per lpf (None-Few)
[2019-03-10] MEDS ORDERED: Ondansetron 4 MG/2 ML VIAL IVP PRN (11:54)
[2019-03-10] MEDS ORDERED: Acetaminophen 325 MG TABLET PO PRN (11:54)
--- NOTE | 2019-03-10 11:59 | Internal Med History&Physical ---
Date of Encounter: 03/10/19 Time of Encounter: 11:57 Internal Medicine - H&P: HPI Chief complaint: Pedal edema and weight gain History of present illness: Sammie Velasco is an 84 F w hx HFpEF, mild PH on home O2 (recently using 5-6L for comfort/dyspnea), HTN, DM2, A-Fib on warfarin, CKD4, obesity, who p/w leg swelling. Pt states that she's noticed her ankles and legs getting more swollen than usual for the last 5-7 days. During this time, noting some increased exertional dyspnea with routine activities but no oneyda SOB. Weighs herself daily and was up 3 lbs today which was precipitating factor for her to come in. She states she limits salt intake at instruction of her Neph Dr Otoole, and weighs herself also. Very compliant. No chest pain, no palpitations, no fevers. No change in med doses lately. Only other concern is that 2 weeks ago she had UTI treated w cipro for which symptoms resolved. In the ED, patient vitals T 98, HR 66, RR 18, SBP 130s, satting mid 90s on 4L. CXR showing pulm vasc congestion. ECG unchanged from baseline. Labs notable for Cr 2.2, Ca 10.6, Tbili 1.2, BNP 350, trop wnl, INR 1.6. Admitted for CHF exacerbation. Past medical, surgical, social, and family histories reviewed and updated as below, w addition that no FHx of CHF or PH. Past Med Surg Social Fam HX - Past Medical History Medical history: atrial fibrillation, diabetes, hypertension, renal disease Psychiatric history: no psych history - Past Surgical History Surgical History: no surgical history - Social History Smoking Status: Never smoker Smokeless Tobacco Status: No Alcohol use: none Drug use: none - Family History Mother Living Status: Hx Family Cardiac Disorders: Yes Internal Medicine - H&P: Meds Allopurinol [Zyloprim] 300 mg PO DAILY 11/03/17 [History] Calcitriol 0.5 mcg PO DAILY 11/03/17 [History] Ergocalciferol (VITAMIN D2) [Vitamin D2] 50,000 unit PO Q1W 11/03/17 [History] Insulin ASPART [Novolog Flexpen] 8 unit SQ TID 11/03/17 [History] Insulin DETEMIR [Levemir Flextouch] 18 unit SQ QPM 11/03/17 [History] Metoprolol XL (24 HR) Succ [Toprol Xl] 50 mg PO BID 11/03/17 [History] amLODIPine [Norvasc] 10 mg PO DAILY 11/03/17 [History] Warfarin [Coumadin] 2.5 mg PO QAM 10/09/18 [History] Furosemide [Lasix] 40 mg PO DAILY 03/10/19 [History] Allergy/AdvReac Type Severity Reaction Status Date / Time Penicillins Allergy Rash Verified 10/09/18 14:01 nitrofurantoin AdvReac Nausea Verified 03/10/19 08:54 LIPITOR AdvReac Back Pain Uncoded 12/31/18 02:05 All Systems PM: A 10-system review of systems was performed and is negative for pertinent findings except as documented above in the HPI. - Constitutional Vitals: Temp Pulse Resp BP Pulse Ox 97.6 F 64 18 137/46 95 03/10/19 08:21 03/10/19 11:33 03/10/19 11:33 03/10/19 11:33 03/10/19 11:33 Exam: General: NAD, good eye contact, well appearing, elderly Head: Atraumatic, normocephalic. Face symmetric Eyes: EOMI, sclerae anicteric ENT: Mucous membranes moist. Normal oral mucosa and dentition. Trachea midline. Thoracic: No visible chest wall deformities. Does have fine bibasilar crackles Cardio: Normal S1 and S2, regular rate and rhythm, no murmurs. Abdomen: Soft, nontender, nondistended. Bowel sounds present. No rebound Extremities: Warm, well perfused. DP pulses 2+ b/l. No clubbing, cyanosis. Does have pitting edema b/l LE and dependent in lower 2/3 thighs, none in body wall Skin: Intact. No rashes, bruises, or ulcers Neuro: Awake, fully oriented. Good memory, concentration, attention. Speech fluent. CN II-XII grossly intact. Strength 5/5 in b/l UE and LE Internal Med - H&P Results - Labs CBC & Chem 7: 03/10/19 08:37 03/10/19 08:37 Labs: Short CBC 03/10/19 Range/Units 08:37 WBC 8.0 (4.3-11.1) K/mcL Hgb 13.5 (11.5-15.4) g/dL Hct 41.0 (35.3-44.9) % Plt Count 227 (140-400) K/mcL Neutrophils # 5.5 (1.6-8.9) K/mcL BMP 03/10/19 08:37 Sodium 140 Potassium 3.9 Chloride 98 Carbon Dioxide 32 H BUN 33 H Creatinine 2.23 H Glucose 120 H Calcium 10.6 H Cardiac Enzymes 03/10/19 Range/Units 08:37 Troponin I < 0.03 (< 0.04) ng/mL Liver Function 03/10/19 Range/Units 08:37 Total Bilirubin 1.2 H (0.3-1.0) mg/dL Direct Bilirubin 0.2 (0.0-0.2) mg/dL AST 19 (13-39) Units/L ALT 10 (7-52) Units/L Alkaline Phosphatase 94 (34-104) Units/L Albumin 4.0 (3.5-5.7) g/dL Urine 03/10/19 Range/Units 11:05 Urine Color Yellow (Yellow) Urine Clarity Clear (Clear) Urine pH 6.0 (5.0-8.0) pH Units Ur Specific [place] 1.012 (1.010-1.025) Urine Protein Negative (Neg-Trace) mg/dL Urine Glucose (UA) Normal (Normal) mg/dL - Impressions ITS Impressions Chest X-Ray 03/10/19 08:36 IMPRESSION: 1. Low lung volumes with findings likely reflecting congestive failure. D/ / Rubén Collado MD / Rubén Collado MD Interpreting Provider: Rubén Collado MD - Summary of Assessment and Plan Summary of Assessment and Plan: Sammie Velasco is an 84 F w hx HFpEF, mild PH on home O2 (uses 5-6L for comfort), HTN, DM2, A-Fib on warfarin, CKD4, obesity, who p/w increased edema, wt gain, TERRAZAS, elevated BNP, CXR showing congestion, concerning for CHF exacerbation and ESTRELLITA. Acute on chronic HFpEF: volume overloaded on exam (pitting edema into thighs, bibasilar crackles), plus elevated BNP, CXR showing congestion. Etiology unclear; no CP, trop wnl, and ECG unremarkable, and reports compliance w diet and home lasix. - Lasix 40 iv x1 and reassess, might need more given elevated Cr - Last TTE in 09/2018, will repeat ESTRELLITA on CKD4: baseline Cr 1.5-1.8, was 2.2 on admit - diurese as above and monitor daily - low threshold to consult Neph for diuresis recommendations if Cr does not improve with trial of lasix as above Hypercalcemia: 10.6 w normal albumin, will check P/VitD/PTH Hyperbilirubinemia: elevated Tbili, possibly 2/2 congestive hepatopathy, will check LFTs and consider RUQ US if does not improve w diuresis Chronic hypoxic respiratory failure 2/2 PH: continue home O2 HTN: home amlodipine 10 DM2: controlled, use home levemir 18 qhs + SSI while inpatient A-Fib: AC subtherapeutic on warfarin so will have pharmacy dose, rate controlled on toprol 50 bid CKD4: calcitriol 0.5 daily, holding allopurinol given ESTRELLITA Obesity: BMI 32 PPx: sqh Tele: yes Activity: ambulate FEN: ADA cardiac 1.5L, no MIVF Lines: PIV Consults: Code: Full Dispo: patient requires inpatient eval and management at this time. Anticipate 2-3 days. Will be homegoing
[2019-03-10] MEDS ORDERED: D5% in Water 1,000 ML IVC PRN (12:29)
[2019-03-10] MEDS ORDERED: *HR* Dextrose 50 % in Water (Syg) 50 ML SYRINGE IVP PRN (12:29)
[2019-03-10] MEDS ORDERED: Dextrose Gel 15 GM/37.5 ML TUBE PO PRN ×2 (12:29)
[2019-03-10] MEDS ORDERED: *HR* Heparin 5,000 UNIT/ML VIAL SQ SCH (14:00)
[2019-03-10] MEDS: Insulin LISPRO 300 UNITS/3 ML VIAL SQ SCH ×2 (16:58→20:56)
[2019-03-10] MEDS ORDERED: Warfarin perPT PO PRN (18:00)
[2019-03-10] MEDS ORDERED: *HR* Warfarin 3 MG TABLET PO ONE (18:00)
[2019-03-10] MEDS: Metoprolol XL (24 HR) Succ 50 MG TAB.ER.24H PO SCH (20:56)
[2019-03-10] MEDS: Insulin DETEMIR 100 UNIT/ML X5UNITS SQ SCH (20:56)
[2019-03-11 01:04] LABS: Hematocrit 37.3 % (35.3-44.9); Hemoglobin 12.1 g/dL (11.5-15.4); Mean Corpuscular HGB Conc 32.4 g/dL (31.6-35.5); Mean Corpuscular Hemoglobin 30.4 pg (28.0-33.3); Mean Corpuscular Volume 93.7 fL (83.0-100.0); Mean Platelet Volume 11.1 fL (9.4-12.4); Platelet Count 203 K/mcL (140-400); Red Blood Count 3.98 M/mcL (3.82-4.97); Red Cell Distribution Width 14.8 % (11.5-14.5); White Blood Count 7.3 K/mcL (4.3-11.1)
[2019-03-11 01:15] LABS: INR 1.8; Prothrombin Time 19.9 Seconds (9.4-12.1)
[2019-03-11 01:26] LABS: Albumin 3.6 g/dL (3.5-5.7); Albumin/Globulin Ratio 1.5 (1.1-2.2); Bilirubin,Direct 0.2 mg/dL (0.0-0.2); Bilirubin,Indirect 0.8 mg/dL (0.0-1.2); Calcium 10.2 mg/dL (8.6-10.3); Globulin 2.4 g/dL (2.4-3.5); Magnesium 1.9 mg/dL (1.6-2.6); Potassium 3.7 mEq/L (3.5-5.1)
--- NOTE | 2019-03-11 07:55 | Internal Med Progress Note ---
<Abbe Epps - Last Filed: 03/11/19 14:08> Hospitalist Progress Note - Encounter Date of Encounter: 03/11/19 Time of Encounter: 07:54 - Subjective Interval History: Ms. Velasco is an 84 y/o female who presented 03/10 with weight increase of 3lbs and b/l lower extremity edema on going for 5-7 days and was admitted for CHF exacerbation. CXR in ED showed pulmonary congestion, labs demonstrated elevated Cr 2.2, Ca 10.6. She states that she has noticed her urine flow has been less the past few days but no pain or burning and bowel movements normal. She denies fever, chills, cough, wheezing, chest pain, dizziness or confusion. She states that she does have some SOB and palpitations when she moves around more but none at rest. She is on home O2 and is compliant with her medications and diet as per her PCP. - Exam Vitals: Temp Pulse Resp BP Pulse Ox 97.5 F L 66 16 112/63 91 03/11/19 06:56 03/11/19 06:56 03/11/19 06:56 03/11/19 06:56 03/11/19 06:56 Exam: Gen: AOx3, pleasant affect, no acute distress Chest: CTA b/l, no wheezing or crackles Cardio: S1 and S2 heard, murmur Abd: Soft, non-tender and not distended, bowel sounds present Extremities: Sensation present, no weakness, pulses present Neuro: no focal deficits, no weakness - Assessment and Plan (1) CHF exacerbation Current Visit: Yes Status: Acute Assessment and Plan: Pt. presented with 3lb weight gain and volume overloaded on exam (pitting edema into thighs, bibasilar crackles), Cr was increased to 2.2, CXR on 03/10 showing congestion. Etiology unclear; no CP, trop wnl, and ECG unremarkable, and reports compliance w diet and home lasix. Pt. received IV dose of lasix on 03/10 and 2 more doses on 03/11. Will continue to give lasix to unload fluid. Continued monitoring of Pt's edema and Cr levels until back to baseline. (2) ESTRELLITA (acute kidney injury) Current Visit: Yes Status: Acute Assessment and Plan: Hx of CKD Baseline Cr 1.5-1.8, was 2.2 on admit on 03/10. Diurese as above and monitor daily for Cr improvement. Low threshold to consult Neph for diuresis recommendations if Cr does not improve with trial of lasix as above 03/11 Cr levels 2.1 Will continue lasix and monitor Cr, may need to increase home Lasix - Time Spent with Patient Total time spent is greater than 50% in coordination of care (as documented) at patient's floor/unit and/or counseling patient: Internal Medicine: Result - Labs CBC & Chem 7: 03/11/19 00:25 03/11/19 00:25 Labs: Short CBC 03/10/19 03/11/19 Range/Units 08:37 00:25 WBC 8.0 7.3 (4.3-11.1) K/mcL Hgb 13.5 12.1 (11.5-15.4) g/dL Hct 41.0 37.3 (35.3-44.9) % Plt Count 227 203 (140-400) K/mcL Neutrophils # 5.5 (1.6-8.9) K/mcL BMP 03/10/19 03/11/19 08:37 00:25 Sodium 140 141 Potassium 3.9 3.7 Chloride 98 98 Carbon Dioxide 32 H 35 H BUN 33 H 33 H Creatinine 2.23 H 2.10 H Glucose 120 H 175 H Calcium 10.6 H 10.2 Cardiac Enzymes 03/10/19 Range/Units 08:37 Troponin I < 0.03 (< 0.04) ng/mL Liver Function 03/10/19 03/11/19 Range/Units 08:37 00:25 Total Bilirubin 1.2 H 1.0 (0.3-1.0) mg/dL Direct Bilirubin 0.2 0.2 (0.0-0.2) mg/dL AST 19 17 (13-39) Units/L ALT 10 8 (7-52) Units/L Alkaline Phosphatase 94 89 (34-104) Units/L Albumin 4.0 3.6 (3.5-5.7) g/dL Urine 03/10/19 Range/Units 11:05 Urine Color Yellow (Yellow) Urine Clarity Clear (Clear) Urine pH 6.0 (5.0-8.0) pH Units Ur Specific Glady 1.012 (1.010-1.025) Urine Protein Negative (Neg-Trace) mg/dL Urine Glucose (UA) Normal (Normal) mg/dL - ABG Interpretation ABG results: PT/INR, D-dimer PT 19.9 Seconds (9.4-12.1) H 03/11/19 00:25 - Impressions Impressions Chest X-Ray 03/10/19 08:36 IMPRESSION: 1. Low lung volumes with findings likely reflecting congestive failure. D/ / Rubén Collado MD / Rubén Collado MD Interpreting Provider: Rubén Collado MD Consult Discharge Plan - Plan Referrals: Addi Laguerre [Primary Care Provider] - <Addi Snow A - Last Filed: 03/11/19 16:07> Hospitalist Progress Note - Encounter Date of Encounter: 03/11/19 - Exam Vitals: Temp Pulse Resp BP Pulse Ox 97.3 F L 73 17 112/63 90 03/11/19 12:11 03/11/19 12:11 03/11/19 12:11 03/11/19 06:56 03/11/19 12:11 - Assessment and Plan (1) Acute respiratory failure with hypoxia Current Visit: No Status: Acute (2) CHF exacerbation Current Visit: Yes Status: Acute (3) Afib Current Visit: No Status: Chronic (4) CKD (chronic kidney disease) Current Visit: No Status: Chronic (5) Diabetes mellitus Current Visit: No Status: Chronic (6) Hypertension Current Visit: No Status: Chronic - Time Spent with Patient Total time spent is greater than 50% in coordination of care (as documented) at patient's floor/unit and/or counseling patient: Internal Medicine: Result - Labs CBC & Chem 7: 03/11/19 00:25 03/11/19 00:25 Labs: Short CBC 03/11/19 Range/Units 00:25 WBC 7.3 (4.3-11.1) K/mcL Hgb 12.1 (11.5-15.4) g/dL Hct 37.3 (35.3-44.9) % Plt Count 203 (140-400) K/mcL BMP 03/11/19 00:25 Sodium 141 Potassium 3.7 Chloride 98 Carbon Dioxide 35 H BUN 33 H Creatinine 2.10 H Glucose 175 H Calcium 10.2 Liver Function 03/11/19 Range/Units 00:25 Total Bilirubin 1.0 (0.3-1.0) mg/dL Direct Bilirubin 0.2 (0.0-0.2) mg/dL AST 17 (13-39) Units/L ALT 8 (7-52) Units/L Alkaline Phosphatase 89 (34-104) Units/L Albumin 3.6 (3.5-5.7) g/dL - ABG Interpretation ABG results: PT/INR, D-dimer PT 19.9 Seconds (9.4-12.1) H 03/11/19 00:25 - Impressions Impressions Echocardiogram 03/10/19 12:45 Impressions: LVEF 60-65%. Indeterminate diastolic function. Normal right ventricular structure and function. Bi-atrial enlargement. Mild-moderate mitral regurgitation. Mild tricuspid regurgitation. Mild pulmonic regurgitation. Moderate pulmonary hypertension. There is a small pericardial effusion present. No echo evidence of tamponade. A pleural effusion is present. Left Ventricular Wall Motion: Rest Echo Findings All wall segments showed normal motion. Findings: Study Quality * Technically adequate exam. ECG Findings * Atrial fibrillation. Left Ventricle * LVEF 60-65%. * Normal LV chamber size, wall thickness and function. * Indeterminate diastolic function. Right Ventricle * Normal right ventricular structure and function. Left Atrium * Moderate-severely dilated left atrium. Right Atrium * Moderate-severely dilated right atrium. Aortic Valve * No aortic regurgitation. * Trileaflet aortic valve. * Mildly calcified aortic valve leaflets. * No aortic stenosis. Mitral Valve * No mitral stenosis. * Mild-moderate mitral regurgitation. * Mildly thickened mitral valve leaflets. Tricuspid Valve * Normal tricuspid valve structure. * Mild tricuspid regurgitation. * Estimated RA pressure is 3 mmHg. * Estimated RVSP is 51 mmHg. * Moderate pulmonary hypertension. Pulmonic Valve * Pulmonic valve is not well visualized. * No pulmonic stenosis. * Mild pulmonic regurgitation. Pulmonary Artery * Pulmonary artery not well visualized. Aorta * Normally sized aortic root. Pericardium * There is a small pericardial effusion present. Pleural Effusion * A pleural effusion is present. Interatrial Septum * No evidence of PFO by color Doppler. IVC * Normal IVC dimensions and inspiratory collapse. - Attending Attestation The history, physical exam, and medical decision making was performed by the medical student either while I was physically present and actively involved or I personally re-performed the exam and medical decision making. I have verified the accuracy of the medical student's documentation with regards to the history, physical exam findings, and medical decision making on 03/11/19. Ms Velasco is currently hospitalized for acute exac CHF. She remains moderate to high risk due to potential for worsening clinical status. Ms Velasco is doing OK. No fever or chills. No CP. Diuresising. No GI issues. Exam: Alert. Comfortable. NC. EOMI. Mucus membranes dry. Heart distant. Rales and diminished breath sounds. Edema present. No rash. Moves all extremities. I/P 1. Acute exac CHF - continue diuresis 2. CKD - monitoring renal function. Further diagnoses and plan as above. <Abbe Epps - Last Filed: 03/11/19 14:08> (1) CHF exacerbation Qualifiers: Heart failure type: unspecified Qualified Code(s): I50.9 - Heart failure, unspecified <Addi Snow - Last Filed: 03/11/19 16:07> (2) CHF exacerbation Qualifiers: Heart failure type: diastolic Qualified Code(s): I50.33 - Acute on chronic diastolic (congestive) heart failure (3) Afib Qualifiers: Atrial fibrillation type: chronic Qualified Code(s): I48.2 - Chronic atrial fibrillation (4) CKD (chronic kidney disease) Qualifiers: Chronic kidney disease stage: stage 3 (moderate) Qualified Code(s): N18.3 - Chronic kidney disease, stage 3 (moderate) (5) Diabetes mellitus Qualifiers: Diabetes mellitus type: type 2 Diabetes mellitus termite exterminator insulin use: with skilled nursing use Diabetes mellitus complication status: with neurologic complications Diabetes mellitus complication detail: with polyneuropathy Qualified Code(s): E11.42 - Type 2 diabetes mellitus with diabetic polyneuropathy; Z79.4 - termite helper (current) use of insulin (6) Hypertension Qualifiers: Hypertension type: essential hypertension Qualified Code(s): I10 - Essential (primary) hypertension
[2019-03-11] MEDS: Metoprolol XL (24 HR) Succ 50 MG TAB.ER.24H PO SCH ×2 (08:54→20:40)
[2019-03-11] MEDS: amLODIPine 5 MG TABLET PO SCH (09:15)
[2019-03-11] MEDS ORDERED: Furosemide 20 MG/2 ML VIAL IVP ONE ×2 (09:17→11:49)
[2019-03-11] MEDS: Insulin LISPRO 300 UNITS/3 ML VIAL SQ SCH ×4 (09:50→20:41)
[2019-03-11] MEDS ORDERED: *HR* Warfarin 2.5 MG TABLET PO ONE (18:00)
[2019-03-11] MEDS: Insulin DETEMIR 100 UNIT/ML X5UNITS SQ SCH (20:40)
[2019-03-12 05:37] LABS: INR 1.9; Prothrombin Time 21.3 Seconds (9.4-12.1)
[2019-03-12 05:53] LABS: Calcium 10.1 mg/dL (8.6-10.3); Magnesium 1.8 mg/dL (1.6-2.6); Potassium 3.6 mEq/L (3.5-5.1)
[2019-03-12] MEDS: Insulin LISPRO 300 UNITS/3 ML VIAL SQ SCH ×4 (08:22→20:20)
--- NOTE | 2019-03-12 08:38 | Internal Med Progress Note ---
<Abbe Epps - Last Filed: 03/12/19 14:31> Hospitalist Progress Note - Encounter Date of Encounter: 03/12/19 Time of Encounter: 08:38 - Subjective Interval History: Ms. Velasco is an 84 y/o female who presented 03/10 with weight increase of 3lbs and b/l lower extremity edema on going for 5-7 days and was admitted for CHF exacerbation. CXR in ED showed pulmonary congestion, labs demonstrated elevated Cr 2.2, Ca 10.6. She denies fever, chills, cough, wheezing, chest pain, dizziness or confusion. She states that she does have some SOB and had an episode of PND last night but resolved spontaneously. Pt. reports normal urination and bowel movements. Pt. is sitting comfortably today with no new complaints. - Exam Vitals: Temp Pulse Resp BP Pulse Ox 97.8 F 59 16 123/65 95 03/12/19 06:49 03/12/19 06:49 03/12/19 06:49 03/12/19 06:49 03/12/19 06:49 Exam: Gen: AOx3, pleasant affect, no acute distress Chest: CTA b/l, no wheezing or crackles Cardio: S1 and S2 heard, no m/r/g Abd: Soft, non-tender and not distended, bowel sounds present Extremities: Sensation present, no weakness, pulses present; b/l pitting edema and swelling in lower extremities Neuro: no focal deficits, no weakness - Assessment and Plan (1) CHF exacerbation Current Visit: Yes Status: Acute Assessment and Plan: Pt. presented with 3lb weight gain and volume overloaded on exam (pitting edema into thighs, bibasilar crackles), Cr was increased to 2.2, CXR on 03/10 showing congestion. No signs of ACS; no CP, trop wnl, and ECG unremarkable, and reports compliance w diet and home lasix. Pt. received IV dose of lasix on 03/10 and 2 more doses on 03/11. Will continue to give lasix to unload fluid. Continued monitoring of Pt's edema and Cr levels. (2) ESTRELLITA (acute kidney injury) Current Visit: Yes Status: Acute Assessment and Plan: Hx of CKD Baseline Cr 1.5-1.8, was 2.2 on admit on 03/10. Diurese as above and monitor daily for Cr levels. Low threshold to consult Neph for diuresis recommendations if Cr does not improve with trial of lasix as above 03/11 Cr levels 2.1 Will continue lasix and monitor Cr - Time Spent with Patient Total time spent is greater than 50% in coordination of care (as documented) at patient's floor/unit and/or counseling patient: Internal Medicine: Result - Labs CBC & Chem 7: 03/11/19 00:25 03/12/19 05:02 Labs: BMP 03/12/19 05:02 Sodium 141 Potassium 3.6 Chloride 98 Carbon Dioxide 34 H BUN 37 H Creatinine 2.02 H Glucose 135 H Calcium 10.1 - ABG Interpretation ABG results: PT/INR, D-dimer PT 21.3 Seconds (9.4-12.1) H 03/12/19 05:02 - Impressions Impressions Echocardiogram 03/10/19 12:45 Impressions: LVEF 60-65%. Indeterminate diastolic function. Normal right ventricular structure and function. Bi-atrial enlargement. Mild-moderate mitral regurgitation. Mild tricuspid regurgitation. Mild pulmonic regurgitation. Moderate pulmonary hypertension. There is a small pericardial effusion present. No echo evidence of tamponade. A pleural effusion is present. Left Ventricular Wall Motion: Rest Echo Findings All wall segments showed normal motion. Findings: Study Quality * Technically adequate exam. ECG Findings * Atrial fibrillation. Left Ventricle * LVEF 60-65%. * Normal LV chamber size, wall thickness and function. * Indeterminate diastolic function. Right Ventricle * Normal right ventricular structure and function. Left Atrium * Moderate-severely dilated left atrium. Right Atrium * Moderate-severely dilated right atrium. Aortic Valve * No aortic regurgitation. * Trileaflet aortic valve. * Mildly calcified aortic valve leaflets. * No aortic stenosis. Mitral Valve * No mitral stenosis. * Mild-moderate mitral regurgitation. * Mildly thickened mitral valve leaflets. Tricuspid Valve * Normal tricuspid valve structure. * Mild tricuspid regurgitation. * Estimated RA pressure is 3 mmHg. * Estimated RVSP is 51 mmHg. * Moderate pulmonary hypertension. Pulmonic Valve * Pulmonic valve is not well visualized. * No pulmonic stenosis. * Mild pulmonic regurgitation. Pulmonary Artery * Pulmonary artery not well visualized. Aorta * Normally sized aortic root. Pericardium * There is a small pericardial effusion present. Pleural Effusion * A pleural effusion is present. Interatrial Septum * No evidence of PFO by color Doppler. IVC * Normal IVC dimensions and inspiratory collapse. Consult Discharge Plan - Plan Referrals: Addi Laguerre [Primary Care Provider] - (Please call Friday to schedule hospital follow up appointment for 7-10 days from date of discharge. ) <Addi Snow A - Last Filed: 03/12/19 18:14> Hospitalist Progress Note - Encounter Date of Encounter: 03/12/19 - Exam Vitals: Temp Pulse Resp BP Pulse Ox 97.9 F 67 16 143/80 93 03/12/19 15:31 03/12/19 15:31 03/12/19 15:31 03/12/19 15:31 03/12/19 15:31 - Assessment and Plan (1) Acute respiratory failure with hypoxia Current Visit: No Status: Acute (2) CHF exacerbation Current Visit: Yes Status: Acute (3) Afib Current Visit: No Status: Chronic (4) CKD (chronic kidney disease) Current Visit: No Status: Chronic (5) Diabetes mellitus Current Visit: No Status: Chronic (6) Hypertension Current Visit: No Status: Chronic - Time Spent with Patient Total time spent is greater than 50% in coordination of care (as documented) at patient's floor/unit and/or counseling patient: Internal Medicine: Result - Labs CBC & Chem 7: 03/11/19 00:25 03/12/19 05:02 Labs: BMP 03/12/19 05:02 Sodium 141 Potassium 3.6 Chloride 98 Carbon Dioxide 34 H BUN 37 H Creatinine 2.02 H Glucose 135 H Calcium 10.1 - ABG Interpretation ABG results: PT/INR, D-dimer PT 21.3 Seconds (9.4-12.1) H 03/12/19 05:02 - Attending Attestation The history, physical exam, and medical decision making was performed by the medical student either while I was physically present and actively involved or I personally re-performed the exam and medical decision making. I have verified the accuracy of the medical student's documentation with regards to the history, physical exam findings, and medical decision making on 03/12/19. Ms Velasco is currently admitted for acute exac CHF. She remains moderate to high risk due to potential for worsening clinical status. Ms Velasco is doing OK. Had some dyspnea last night. No fever or chills. Edema little better. Exam: Alert. Comfortable. NC. EOMI. Mucus membranes dry. Heart distant. Crackles bilaterally. Abd soft. Edema present. Moves all extremities. No rash. I/P 1. Acute exac CHF - continue diuresis 2. Resp failure - improving back to baseline. Further diagnoses and plan as above. <Abbe Epps - Last Filed: 03/12/19 14:31> (1) CHF exacerbation Qualifiers: Heart failure type: diastolic Qualified Code(s): I50.33 - Acute on chronic diastolic (congestive) heart failure <Addi Snow - Last Filed: 03/12/19 18:14> (2) CHF exacerbation Qualifiers: Heart failure type: diastolic Qualified Code(s): I50.33 - Acute on chronic diastolic (congestive) heart failure (3) Afib Qualifiers: Atrial fibrillation type: chronic Qualified Code(s): I48.2 - Chronic atrial fibrillation (4) CKD (chronic kidney disease) Qualifiers: Chronic kidney disease stage: stage 3 (moderate) Qualified Code(s): N18.3 - Chronic kidney disease, stage 3 (moderate) (5) Diabetes mellitus Qualifiers: Diabetes mellitus type: type 2 Diabetes mellitus buttermaker insulin use: with longterm use Diabetes mellitus complication status: with neurologic complications Diabetes mellitus complication detail: with polyneuropathy Qualified Code(s): E11.42 - Type 2 diabetes mellitus with diabetic p olyneuropathy; Z79.4 - long term care social worker (current) use of insulin (6) Hypertension Qualifiers: Hypertension type: essential hypertension Qualified Code(s): I10 - Essential (primary) hypertension
[2019-03-12] MEDS ORDERED: Furosemide 40 MG/4 ML VIAL IVP ONE (08:58)
[2019-03-12] MEDS: amLODIPine 5 MG TABLET PO SCH (10:10)
[2019-03-12] MEDS: Metoprolol XL (24 HR) Succ 50 MG TAB.ER.24H PO SCH ×2 (10:11→20:19)
[2019-03-12] MEDS ORDERED: *HR* Warfarin 2.5 MG TABLET PO ONE (18:00)
--- NOTE | 2019-03-12 18:11 | Physician Discharge Referral ---
Home Health/Hosp Referral Info Transfer to: Home Health Provider in Charge Post Discharge: PCP - Diagnosis (1) Acute respiratory failure with hypoxia Priority: Primary Status: Acute (2) CHF exacerbation Priority: Secondary Status: Acute (3) Afib Priority: Secondary Status: Chronic (4) CKD (chronic kidney disease) Priority: Secondary Status: Chronic (5) Diabetes mellitus Priority: Secondary Status: Chronic (6) Hypertension Priority: Secondary Status: Chronic - Respiratory Orders Oxygen / L per min (3-6) Smoking Cessation: Smoking cessation has been advised. For more information, call the [place] Tobacco Quit Line at 0-546-RVLE-NOW. - Diet/Nutrition Diet/Nutrition Orders: No Added Salt (BANDAR), Cardiac - Activity Activity Orders: Up ad lauren - Services Needed Following services are medically necessary services: Nursing - Transfer Medications Home Medications: Allopurinol [Zyloprim] 300 mg PO DAILY 11/03/17 [History] Calcitriol 0.5 mcg PO DAILY 11/03/17 [History] Ergocalciferol (VITAMIN D2) [Vitamin D2] 50,000 unit PO FR 11/03/17 [History] Insulin ASPART [Novolog Flexpen] 8 unit SQ TID 11/03/17 [History] Insulin DETEMIR [Levemir Flextouch] 18 unit SQ QPM 11/03/17 [History] Metoprolol XL (24 HR) Succ [Toprol Xl] 50 mg PO BID 11/03/17 [History] amLODIPine [Norvasc] 10 mg PO DAILY 11/03/17 [History] Warfarin [Coumadin] 2.5 mg PO 2359 10/09/18 [History] Furosemide [Lasix] 40 mg PO DAILY 03/10/19 [History] Allergies/Adverse Reactions: Allergy/AdvReac Type Severity Reaction Status Date / Time Penicillins Allergy Rash Verified 03/10/19 13:51 atorvastatin [From Lipitor] AdvReac Muscle Pain Verified 03/10/19 13:51 nitrofurantoin AdvReac Nausea Verified 03/10/19 13:51 Certification: Further, I certify that my clinical findings support that this patient is homebound (i.e. absences from home require considerable and taxing effort and are for medical reasons or jehovah's witness services or infrequently or short duration when for other reasons) because: Homebound Reason: Leaving home requires considerable and taxing effort due to condition, Severity of cardiac or pulmonary status limits activity tolerance Attestation: My signature below is to certify that this patient is under my care and that I, or nurse practitioner, or a physician's credit control assistant working with me, has a [id number] encounter with this patient.
[2019-03-12] MEDS: Insulin DETEMIR 100 UNIT/ML X5UNITS SQ SCH (20:19)
[2019-03-13 03:07] LABS: Calcium 10.3 mg/dL (8.6-10.3); Magnesium 1.8 mg/dL (1.6-2.6); Potassium 3.6 mEq/L (3.5-5.1)
[2019-03-13 03:21] LABS: INR 1.9; Prothrombin Time 21.6 Seconds (9.4-12.1)
[2019-03-13] MEDS: Insulin LISPRO 300 UNITS/3 ML VIAL SQ SCH ×4 (08:53→21:09)
[2019-03-13] MEDS ORDERED: Furosemide 40 MG/4 ML VIAL IVP ONE (08:53)
[2019-03-13] MEDS: Metoprolol XL (24 HR) Succ 50 MG TAB.ER.24H PO SCH ×2 (08:53→21:07)
[2019-03-13] MEDS: amLODIPine 5 MG TABLET PO SCH (08:53)
--- NOTE | 2019-03-13 17:07 | Internal Med Progress Note ---
Hospitalist Progress Note - Encounter Date of Encounter: 03/13/19 Time of Encounter: 09:15 - Subjective Interval History: Ms Velasco is currently admitted for acute exac CHF. She remains moderate to high risk due to potential for worsening clinical status. Ms Velasco is eating breakfast. No SOB last night. Still with a lot of edema. No fever or chills. No CP. No abd pain. - Exam Vitals: Temp Pulse Resp BP Pulse Ox 97.4 F L 64 15 138/84 94 03/13/19 16:12 03/13/19 16:12 03/13/19 16:12 03/13/19 16:12 03/13/19 16:12 Exam: General: Alert and oriented. Comfortable at this time. Skin: Normal color, H: Normocephalic. EENT: EOMI, Mucus membranes moist. Cardiovascular: Normal S1 & S2, Pulse irregular. Not tachycardic Lungs: Scant crackles bilaterally - seems little better than yesterday. Abdomen: Soft, non-tender, Extremities: No deformity, Pitting edema present. About same as yesterday. Neurological: Normal cognition and motor skills. Pulses: radial pulses normal +2. Rest of the physical exam is non contributory - Assessment and Plan (1) Acute respiratory failure with hypoxia Current Visit: No Status: Acute Assessment and Plan: Pt presented with increased dyspnea and higher oxygen requirements. Weaning down to home levels. (2) CHF exacerbation Current Visit: Yes Status: Acute Assessment and Plan: Continues to have issues with edema and dyspnea. Will give additional IV Lasix today. (3) Afib Current Visit: No Status: Chronic Assessment and Plan: Rate controlled. (4) CKD (chronic kidney disease) Current Visit: No Status: Chronic Assessment and Plan: Continue to avoid nephrotoxins as able. (5) Diabetes mellitus Current Visit: No Status: Chronic Assessment and Plan: Adequate control at this time. (6) Hypertension Current Visit: No Status: Chronic Assessment and Plan: Controlled. - Time Spent with Patient Total time spent is greater than 50% in coordination of care (as documented) at patient's floor/unit and/or counseling patient: Internal Medicine: Result - Labs CBC & Chem 7: 03/11/19 00:25 03/13/19 01:18 Labs: BMP 03/13/19 01:18 Sodium 139 Potassium 3.6 Chloride 95 L Carbon Dioxide 30 H BUN 40 H Creatinine 1.95 H Glucose 137 H Calcium 10.3 - ABG Interpretation ABG results: PT/INR, D-dimer PT 21.6 Seconds (9.4-12.1) H 03/13/19 01:18 Consult Discharge Plan - Plan Additional Instructions: Home Health has been set up through [facility] for PT/INR draws. They will call you with a date and time to complete admission paperwork. If you need to contact them, please call #[phone] or #[phone]. Referrals: Addi Laguerre [Primary Care Provider] - (Please call Friday to schedule hospital follow up appointment for 7-10 days from date of discharge. ) (2) CHF exacerbation Qualifiers: Heart failure type: diastolic Qualified Code(s): I50.33 - Acute on chronic diastolic (congestive) heart failure (3) Afib Qualifiers: Atrial fibrillation type: chronic Qualified Code(s): I48.2 - Chronic atrial fibrillation (4) CKD (chronic kidney disease) Qualifiers: Chronic kidney disease stage: stage 3 (moderate) Qualified Code(s): N18.3 - Chronic kidney disease, stage 3 (moderate) (5) Diabetes mellitus Qualifiers: Diabetes mellitus type: type 2 Diabetes mellitus moth exterminator insulin use: with jail use Diabetes mellitus complication status: with neurologic complications Diabetes mellitus complication detail: with polyneuropathy Qualified Code(s): E11.42 - Type 2 diabetes mellitus with diabetic polyneuropathy; Z79.4 - skilled nursing (current) use of insulin (6) Hypertension Qualifiers: Hypertension type: essential hypertension Qualified Code(s): I10 - Essential (primary) hypertension
[2019-03-13] MEDS ORDERED: *HR* Warfarin 2.5 MG TABLET PO ONE (18:00)
[2019-03-13] MEDS: Insulin DETEMIR 100 UNIT/ML X5UNITS SQ SCH (21:07)
--- NOTE | 2019-03-13 23:57 | Electrocardiograph Report ---
[facility] Test Date: 2019-03-10 Pat Name: Sammie Velasco Department: [id number] Room: 3B45 Gender: F [employer]: : 1935 Requested By: Yary Iniguez Order Number: [id number] Reading MD: Buzz Blake Measurements Intervals [place] Rate: 62 P: [place]: QRS: 75 QRSD: 93 T: 12 QT: 418 QTc: 425 Interpretive Statements Atrial fibrillation Probable anteroseptal infarct, old Borderline repolarization abnormality Electronically Signed On 03-13-2019 23:55:41 EDT by Buzz Blake
[2019-03-14 06:53] LABS: Prothrombin Time 22.8 Seconds (9.4-12.1)
[2019-03-14 06:56] LABS: Magnesium 1.8 mg/dL (1.6-2.6); Potassium 3.4 mEq/L (3.5-5.1)
[2019-03-14 07:37] VITALS: BP 129/69
[2019-03-14] MEDS: Insulin LISPRO 300 UNITS/3 ML VIAL SQ SCH (08:00)
--- NOTE | 2019-03-14 09:02 | Discharge Summary ---
- NOTES TO OUTPATIENT PROVIDER Notes to Outpatient Provider: Pt admitted with acute exac CHF. Diuresed with improvement. Discharged home on Lasix 60mg daily. Estimated PT Needs at Discharge: None Estimated OT Needs at Discharge: None Estimated ST Needs at Discharge: None PT Estimated DME Needs at D/C: None Date of Encounter: 03/14/19 Time of Encounter: 08:50 - Discharge Diagnosis (1) Acute respiratory failure with hypoxia Priority: Primary Status: Resolved (2) CHF exacerbation Priority: Secondary Status: Resolved Qualifiers: Heart failure type: diastolic Qualified Code(s): I50.33 - Acute on chronic diastolic (congestive) heart failure (3) Afib Priority: Secondary Status: Chronic Qualifiers: Atrial fibrillation type: chronic Qualified Code(s): I48.2 - Chronic atrial fibrillation (4) CKD (chronic kidney disease) Priority: Secondary Status: Chronic Qualifiers: Chronic kidney disease stage: stage 3 (moderate) Qualified Code(s): N18.3 - Chronic kidney disease, stage 3 (moderate) (5) Diabetes mellitus Priority: Secondary Status: Chronic Qualifiers: Diabetes mellitus type: type 2 Diabetes mellitus care home insulin use: with 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 Velasco is a 84 year old female with hx chronic hypoxic resp failure and CHF presented to ED with dyspnea and weight gain. She was subsequently admitted. Ms Velasco was admitted to [facility]. She was started on IV Lasix with diuresis. Pt had slow improvement overall. She continued to have some dyspnea especially at night so Lasix increased. Today her edema is improving. She is afebrile and ready for discharge home. She had been discharged on Lasix 80mg daily last visit. Dose was too high and decreased to 40mg outpatient. Since she was admitted again will discharge on 60mg daily. Discharge discussed with: patient - Time Spent with Patient Total time spent providing and/or coordinating discharge services: 42min - Discharge Medications Prescriptions: New Furosemide [Lasix] 60 mg PO DAILY #45 tab Continued Allopurinol [Zyloprim] 300 mg PO DAILY amLODIPine [Norvasc] 10 mg PO DAILY Calcitriol 0.5 mcg PO DAILY Insulin ASPART [Novolog Flexpen] 8 unit SQ TID Insulin DETEMIR [Levemir Flextouch] 18 unit SQ QPM Metoprolol XL (24 HR) Succ [Toprol Xl] 50 mg PO BID Ergocalciferol (VITAMIN D2) [Vitamin D2] 50,000 unit PO FR Warfarin [Coumadin] 2.5 mg PO 2358 Discontinued Furosemide [Lasix] 40 mg PO DAILY Home Medications: Allopurinol [Zyloprim] 300 mg PO DAILY 11/03/17 [History] Calcitriol 0.5 mcg PO DAILY 11/03/17 [History] Ergocalciferol (VITAMIN D2) [Vitamin D2] 50,000 unit PO FR 11/03/17 [History] Insulin ASPART [Novolog Flexpen] 8 unit SQ TID 11/03/17 [History] Insulin DETEMIR [Levemir Flextouch] 18 unit SQ QPM 11/03/17 [History] Metoprolol XL (24 HR) Succ [Toprol Xl] 50 mg PO BID 11/03/17 [History] amLODIPine [Norvasc] 10 mg PO DAILY 11/03/17 [History] Warfarin [Coumadin] 2.5 mg PO 235810/09/18 [History] Furosemide [Lasix] 60 mg PO DAILY #45 tab 03/14/19 [Rx] Allergies/Adverse Reactions: Allergy/AdvReac Type Severity Reaction Status Date / Time Penicillins Allergy Rash Verified 03/10/19 13:51 atorvastatin [From Lipitor] AdvReac Muscle Pain Verified 03/10/19 13:51 nitrofurantoin AdvReac Nausea Verified 03/10/19 13:51 Date of admission: 03/10/19 11:54 Primary care physician: Addi Laguerre Consults: 03/11/19 10:32 Consult to Nurse Navigator [CONS] Routine Comment: CHF Discharging clinician: Addi Snow Anticipated date of discharge: 03/14/19 - Constitutional Vitals: Temp Pulse Resp BP Pulse Ox 97.7 F 63 15 129/69 93 03/14/19 07:36 03/14/19 07:36 03/14/19 07:36 03/14/19 07:36 03/14/19 07:36 General appearance: Present: A&O X 3, answers questions appropriately Exam: See below - Head Head exam: Present: atraumatic, normocephalic - Eye Eye exam: Present: EOMI, conjuntiva pink - ENT ENT exam: Present: normal exam - Neck Neck exam general surgery: Present: normal inspection, supple - Respiratory Respiratory exam: Present: rales (decreased) - Cardiovascular Cardiovascular exam: Present: irregular rhythm. Absent: tachycardia - GI/Abdominal GI/Abdominal exam: Present: soft. Absent: tenderness - Extremities Exam Extremities exam: Present: pedal edema, warm. Absent: tenderness - Neurological Exam Neurological exam: Present: alert, oriented X3 - Skin Skin exam: Present: dry, warm. Absent: rash - Patient Status Disposition: Home Health Service Condition: Good Functional capacity at discharge: independent ambulation Overall status at discharge: patient is progressing back to baseline - Discharge Instructions Follow Up With: Addi Laguerre [Primary Care Provider] - (Please call Friday to schedule hospital follow up appointment for 7-10 days from date of discharge. ) Additional Instructions: Home Health has been set up through [facility] for PT/INR draws. They will call you with a date and time to complete admission paperwork. If you need to contact them, please call #[phone] or #[phone]. - Diet and Activity Activity: increase activity as tolerated Diet: advance to your usual diet (1500ml fluid restriction)
[2019-03-14] MEDS: amLODIPine 5 MG TABLET PO SCH (09:16)
[2019-03-14] MEDS: Metoprolol XL (24 HR) Succ 50 MG TAB.ER.24H PO SCH (09:16)
== END 2019-03-14 11:02 | disposition home health service (06) | DRG 291 ==
LOC: EMEROOARM 08:20 → 3BNU 08:20 → SUATTDRO 11:54 → 3BNU 11:55
PROVIDERS: ADMIT Internal Medicine; ATTEND Internal Medicine

== ENCOUNTER 2019-06-26 06:12 | Inpatient (IN) ==
[2019-06-26] MEDS ORDERED: Aspirin 81 MG TAB.CHEW PO ONE (07:01)
[2019-06-26 07:11] LABS: Basophils % 0.5 %; Eosinophils # 0.2 K/mcL (0.0-0.6); Eosinophils % 2.5 %; Hematocrit 38.6 % (35.3-44.9); Hemoglobin 12.9 g/dL (11.5-15.4); Immature Granulocytes % 0.4 % (0-4); Lymphocytes # 1.8 K/mcL (0.6-4.6); Lymphocytes % 22.1 %; Mean Corpuscular HGB Conc 33.4 g/dL (31.6-35.5); Mean Corpuscular Hemoglobin 30.7 pg (28.0-33.3); Mean Corpuscular Volume 91.9 fL (83.0-100.0); Mean Platelet Volume 10.8 fL (9.4-12.4); Monocytes # 0.6 K/mcL (0.0-1.3); Monocytes % 7.6 %; Neutrophils # 5.4 K/mcL (1.6-8.9); Platelet Count 219 K/mcL (140-400); Red Cell Distribution Width 15.4 % (11.5-14.5); Segmented Neutrophils % 66.9 %; White Blood Count 8.1 K/mcL (4.3-11.1)
[2019-06-26 07:15] LABS: INR 3.3; Prothrombin Time 37.3 Seconds (9.4-12.1)
[2019-06-26 07:18] LABS: Activated Partial Thrombo Time 52.6 Seconds (26.0-36.0)
[2019-06-26 07:33] LABS: Albumin 3.9 g/dL (3.5-5.7); Albumin/Globulin Ratio 1.5 (1.1-2.2); Bilirubin,Total 0.9 mg/dL (0.3-1.0); Calcium 10.1 mg/dL (8.6-10.3); Globulin 2.6 g/dL (2.4-3.5); Total Protein 6.5 g/dL (6.4-8.9); Troponin I 0.03 ng/mL (< 0.04)
[2019-06-26] MEDS ORDERED: Naloxone 0.4 MG/ML INJ IVP PRN (08:20)
[2019-06-26] MEDS ORDERED: Isovue-370 500 ML BOTTLE IVP ONE (09:01)
[2019-06-26] MEDS ORDERED: 0.9 % Sodium Chloride 1,000 ML IVC ONE (09:03)
[2019-06-26 09:09] LABS: Bilirubin,Urine Negative (Negative); Blood,Urine Negative (Negative); Clarity,Urine Cloudy (Clear); Color,Urine Yellow (Yellow); Glucose,Urine (UA) Normal (Normal); Ketones,Urine Negative (Negative); Leukocyte Esterase,Urine Large (Negative); Nitrite,Urine Negative (Negative); PH,Urine 6.5 pH Units (5.0-8.0); Protein,Urine Negative (Neg-Trace); Urobilinogen,Urine Normal (Normal)
[2019-06-26 09:11] LABS: Bacteria,Urine Moderate per hpf (None-Few); Hyaline Casts,Urine None Seen per lpf (None-Few); RBC,Urine 0-3 per hpf (0-3); Squamous Epithelial Cell,Urine Moderate per lpf (None-Few); WBC,Urine TNTC per hpf (0-3)
[2019-06-26] MEDS ORDERED: Ipratropium/Albuterol Neb 3 ML ONE (10:14)
[2019-06-26] MEDS ORDERED: Ipratropium/Albuterol Neb 3 ML IH ONE (10:14)
[2019-06-26] MEDS ORDERED: *HR* Dextrose 50 % in Water (Syg) 50 ML SYRINGE IVP PRN (10:34)
[2019-06-26] MEDS ORDERED: Dextrose Gel 15 GM/37.5 ML TUBE PO PRN ×2 (10:34)
[2019-06-26] MEDS ORDERED: D5% in Water 1,000 ML IVC PRN (10:34)
[2019-06-26] MEDS ORDERED: 0.9 % Sodium Chloride 500 ML IVC ONE (10:45)
[2019-06-26] MEDS: Insulin LISPRO 300 UNITS/3 ML VIAL SQ SCH ×4 (11:30→17:42)
[2019-06-26] MEDS ORDERED: INSULIN ASPART 8 UNIT SQ SCH (15:00)
[2019-06-26] MEDS ORDERED: Warfarin perPT PO PRN (18:00)
[2019-06-26] MEDS ORDERED: INSULIN DETEMIR 18 UNIT SQ SCH (18:00)
[2019-06-26] MEDS: Metoprolol XL (24 HR) Succ 50 MG TAB.ER.24H PO SCH (21:01)
[2019-06-26] MEDS: Insulin DETEMIR 100 UNIT/ML X5UNITS SQ SCH (21:01)
[2019-06-27 02:07] LABS: Prothrombin Time 33.6 Seconds (9.4-12.1)
[2019-06-27] MEDS: Psyllium 1 PACKET POWD.PACK PO SCH ×4 (03:14→23:02)
[2019-06-27] MEDS ORDERED: Furosemide 20 MG TABLET PO SCH (03:15)
[2019-06-27] MEDS ORDERED: Furosemide 40 MG/4 ML VIAL IVP ONE (08:01)
[2019-06-27] MEDS: Metoprolol XL (24 HR) Succ 50 MG TAB.ER.24H PO SCH ×2 (08:47→23:02)
[2019-06-27] MEDS: Insulin LISPRO 300 UNITS/3 ML VIAL SQ SCH ×8 (08:48→17:05)
[2019-06-27] MEDS: Albumin 25% 25gram/100mL 25 GM/100 ML IV.SOLN IVPB SCH ×3 (08:50→23:45)
[2019-06-27] MEDS ORDERED: amLODIPine 5 MG TABLET PO SCH (09:00)
[2019-06-27 09:41] LABS: Calcium 9.9 mg/dL (8.6-10.3)
[2019-06-27] MEDS ORDERED: *HR* Heparin 5,000 UNIT/ML VIAL IVP PRN (14:34)
[2019-06-27 14:56] LABS: Hematocrit 35.9 % (35.3-44.9); Hemoglobin 11.9 g/dL (11.5-15.4); Mean Corpuscular HGB Conc 33.1 g/dL (31.6-35.5); Mean Corpuscular Hemoglobin 30.4 pg (28.0-33.3); Mean Corpuscular Volume 91.8 fL (83.0-100.0); Mean Platelet Volume 11.2 fL (9.4-12.4); Platelet Count 219 K/mcL (140-400); Red Blood Count 3.91 M/mcL (3.82-4.97); Red Cell Distribution Width 15.5 % (11.5-14.5); White Blood Count 10.4 K/mcL (4.3-11.1)
[2019-06-27 15:04] LABS: INR 2.8; Prothrombin Time 32.3 Seconds (9.4-12.1)
[2019-06-27] MEDS: Aspirin Enteric Coated 81 MG Tablet PO SCH (15:48)
[2019-06-27] MEDS: Heparin 25,000 UNIT/250 ML D5W 25,000 UNIT/250 ML IV.SOLN IVC SCH (15:59)
[2019-06-27] MEDS ORDERED: Ondansetron 4 MG/2 ML VIAL IVP PRN (17:56)
[2019-06-27] MEDS ORDERED: Ondansetron 4 MG/2 ML VIAL IVP SCH (20:00)
[2019-06-27] MEDS: Insulin DETEMIR 100 UNIT/ML X5UNITS SQ SCH (23:04)
[2019-06-28 04:31] LABS: Basophils % 0.2 %; Eosinophils # 0.1 K/mcL (0.0-0.6); Eosinophils % 1.1 %; Hematocrit 32.1 % (35.3-44.9); Immature Granulocytes % 0.2 % (0-4); Lymphocytes # 1.3 K/mcL (0.6-4.6); Lymphocytes % 14.1 %; Mean Corpuscular HGB Conc 32.1 g/dL (31.6-35.5); Mean Corpuscular Hemoglobin 30.5 pg (28.0-33.3); Mean Platelet Volume 10.4 fL (9.4-12.4); Monocytes # 0.5 K/mcL (0.0-1.3); Monocytes % 5.6 %; Neutrophils # 7.1 K/mcL (1.6-8.9); Platelet Count 165 K/mcL (140-400); Red Blood Count 3.38 M/mcL (3.82-4.97); Red Cell Distribution Width 15.3 % (11.5-14.5); Segmented Neutrophils % 78.8 %
[2019-06-28 04:33] LABS: Hemoglobin 10.3 g/dL (11.5-15.4); INR 2.6
[2019-06-28 04:40] LABS: Heparin anti-factor XA UFH 0.66 IU/mL (0.30-0.70)
[2019-06-28 04:50] LABS: Calcium 10.3 mg/dL (8.6-10.3); Potassium 3.9 mEq/L (3.5-5.1)
[2019-06-28] MEDS ORDERED: Vancomycin 1,000 MG, Sodium Chloride IRRigation 1,000 ML IR ONE (07:00)
[2019-06-28] MEDS: Metoprolol XL (24 HR) Succ 50 MG TAB.ER.24H PO SCH ×2 (07:31→20:24)
[2019-06-28] MEDS: Aspirin Enteric Coated 81 MG Tablet PO SCH (07:33)
[2019-06-28] MEDS: Psyllium 1 PACKET POWD.PACK PO SCH ×3 (07:34→20:24)
[2019-06-28] MEDS: Insulin LISPRO 300 UNITS/3 ML VIAL SQ SCH ×6 (08:29→17:48)
[2019-06-28] MEDS: Albumin 25% 25gram/100mL 25 GM/100 ML IV.SOLN IVPB SCH ×3 (10:31→23:45)
[2019-06-28] MEDS: Furosemide 40 MG/4 ML VIAL IVP SCH ×2 (12:39→20:24)
[2019-06-28] MEDS: Ipratropium/Albuterol Neb 3 ML IH PRN ×2 (12:54→17:35)
[2019-06-28] MEDS ORDERED: Simethicone 80 MG TAB.CHEW PO PRN (12:55)
[2019-06-28] MEDS: Heparin 25,000 UNIT/250 ML D5W 25,000 UNIT/250 ML IV.SOLN IVC SCH (13:53)
[2019-06-28] MEDS ORDERED: *HR* OxyCODONE Immed Rel 5 MG TABLET PO PRN (15:20)
[2019-06-28] MEDS: Insulin DETEMIR 100 UNIT/ML X5UNITS SQ SCH (20:36)
[2019-06-29 04:47] LABS: INR 1.9; Prothrombin Time 21.1 Seconds (9.4-12.1)
[2019-06-29 05:03] LABS: Calcium 10.5 mg/dL (8.6-10.3); Potassium 3.7 mEq/L (3.5-5.1)
[2019-06-29] MEDS: Furosemide 40 MG/4 ML VIAL IVP SCH (08:52)
[2019-06-29] MEDS: Aspirin Enteric Coated 81 MG Tablet PO SCH (08:52)
[2019-06-29] MEDS: Metoprolol XL (24 HR) Succ 50 MG TAB.ER.24H PO SCH (08:52)
[2019-06-29] MEDS: Psyllium 1 PACKET POWD.PACK PO SCH (08:52)
[2019-06-29] MEDS: Albumin 25% 25gram/100mL 25 GM/100 ML IV.SOLN IVPB SCH ×2 (08:57→15:00)
[2019-06-29] MEDS: Insulin LISPRO 300 UNITS/3 ML VIAL SQ SCH ×4 (08:58→12:44)
[2019-06-29 15:40] VITALS: BP 137/66
[2019-06-30 05:15] LABS: Kappa Qnt Free Light Chains 3.91 mg/dL (0.33-1.94); Lambda Qnt Free Light Chains 2.24 mg/dL (0.57-2.63)
[2019-07-01 18:25] LABS: Alpha 2 Globulin (PEP) 0.81 g/dL (0.48-1.05); Beta Globulin (PEP) 0.66 g/dL (0.48-1.10)
[2019-07-02 08:36] LABS: IFE Reflexed IFE Done; Immunoglobulin A 224 mg/dL (68-408); Immunoglobulin G 622 mg/dL (768-1632); Immunoglobulin M 54 mg/dL (35-263)
== END 2019-06-29 17:43 | disposition critical access hospital (66) | DRG 64 ==
LOC: 3ANU 06:12 → EMEROOARM 06:12 → 3ANU 10:20 → SUATTDRO 17:23
PROVIDERS: ADMIT Internal Medicine; ATTEND Internal Medicine

== ENCOUNTER 2019-07-16 14:46 | Observation (INO) ==
[2019-07-16 16:15] LABS: Basophils % 0.2 %; Eosinophils # 0.2 K/mcL (0.0-0.6); Eosinophils % 1.8 %; Hematocrit 26.5 % (35.3-44.9); Hemoglobin 8.5 g/dL (11.5-15.4); Immature Granulocytes % 0.4 % (0-4); Lymphocytes # 1.1 K/mcL (0.6-4.6); Lymphocytes % 13.4 %; Mean Corpuscular HGB Conc 32.1 g/dL (31.6-35.5); Mean Corpuscular Hemoglobin 31.4 pg (28.0-33.3); Mean Corpuscular Volume 97.8 fL (83.0-100.0); Mean Platelet Volume 10.4 fL (9.4-12.4); Monocytes # 0.5 K/mcL (0.0-1.3); Neutrophils # 6.5 K/mcL (1.6-8.9); Platelet Count 260 K/mcL (140-400); Red Blood Count 2.71 M/mcL (3.82-4.97); Red Cell Distribution Width 17.1 % (11.5-14.5); Segmented Neutrophils % 78.2 %; White Blood Count 8.4 K/mcL (4.3-11.1)
[2019-07-16 16:36] LABS: Calcium 10.5 mg/dL (8.6-10.3); Potassium 3.7 mEq/L (3.5-5.1); Troponin I 0.03 ng/mL (< 0.04)
[2019-07-16 17:18] LABS: INR 2.3; Prothrombin Time 25.7 Seconds (9.4-12.1)
[2019-07-16] MEDS ORDERED: Naloxone 0.4 MG/ML INJ IVP PRN (21:36)
[2019-07-17] MEDS ORDERED: D5% in Water 1,000 ML IVC PRN (00:30)
[2019-07-17] MEDS ORDERED: Dextrose Gel 15 GM/37.5 ML TUBE PO PRN ×2 (00:30)
[2019-07-17] MEDS ORDERED: *HR* Dextrose 50 % in Water (Syg) 50 ML SYRINGE IVP PRN (00:30)
[2019-07-17] MEDS: 0.9 % Sodium Chloride 1,000 ML IVC SCH ×2 (00:44→12:57)
[2019-07-17] MEDS: Insulin LISPRO 300 UNITS/3 ML VIAL SQ SCH ×4 (00:56→16:34)
[2019-07-17 05:04] LABS: Albumin 3.9 g/dL (3.5-5.7); Albumin/Globulin Ratio 1.5 (1.1-2.2); Bilirubin,Total 1.2 mg/dL (0.3-1.0); Calcium 10.2 mg/dL (8.6-10.3); Globulin 2.6 g/dL (2.4-3.5); Potassium 3.7 mEq/L (3.5-5.1); Total Protein 6.5 g/dL (6.4-8.9)
[2019-07-17 05:05] LABS: Hematocrit 26.8 % (35.3-44.9); Hemoglobin 8.4 g/dL (11.5-15.4); Mean Corpuscular HGB Conc 31.3 g/dL (31.6-35.5); Mean Corpuscular Hemoglobin 30.8 pg (28.0-33.3); Mean Corpuscular Volume 98.2 fL (83.0-100.0); Mean Platelet Volume 11.2 fL (9.4-12.4); Platelet Count 266 K/mcL (140-400); Red Blood Count 2.73 M/mcL (3.82-4.97); Red Cell Distribution Width 17.2 % (11.5-14.5); White Blood Count 8.1 K/mcL (4.3-11.1)
[2019-07-17] MEDS ORDERED: Warfarin perPT PO PRN (18:00)
[2019-07-17] MEDS: Metoprolol XL (24 HR) Succ 25 MG TAB.ER.24H PO SCH (18:48)
[2019-07-17] MEDS ORDERED: *HR* Warfarin 2.5 MG TABLET PO ONE (19:45)
[2019-07-17] MEDS ORDERED: Insulin DETEMIR 100 UNIT/ML X5UNITS SQ SCH ×2 (21:00→21:30)
[2019-07-17] MEDS ORDERED: Metoprolol XL (24 HR) Succ 50 MG TAB.ER.24H PO SCH (21:00)
[2019-07-17] MEDS ORDERED: Insulin LISPRO 300 UNITS/3 ML VIAL SQ SCH (21:00)
[2019-07-17] MEDS: Triamcinolone Acet 0.1% CRM 15 GM TUBE TP SCH (22:50)
[2019-07-17] MEDS: Ipratropium/Albuterol Neb 3 ML IH SCH (23:32)
[2019-07-18 05:49] LABS: INR 2.1; Prothrombin Time 23.7 Seconds (9.4-12.1)
[2019-07-18 07:31] VITALS: BP 139/85
[2019-07-18] MEDS: Ipratropium/Albuterol Neb 3 ML IH SCH (07:48)
[2019-07-18] MEDS ORDERED: Insulin LISPRO 300 UNITS/3 ML VIAL SQ SCH (08:00)
[2019-07-18] MEDS ORDERED: Furosemide 40 MG TABLET PO SCH (09:00)
[2019-07-18 09:49] LABS: Calcium 10.4 mg/dL (8.6-10.3); Potassium 3.5 mEq/L (3.5-5.1)
[2019-07-18] MEDS: Triamcinolone Acet 0.1% CRM 15 GM TUBE TP SCH (10:41)
[2019-07-18] MEDS: Metoprolol XL (24 HR) Succ 25 MG TAB.ER.24H PO SCH (10:41)
== END 2019-07-18 14:51 ==
LOC: 3BNU 14:46 → EMEROOARM 14:46 → 3BNU 22:43
PROVIDERS: ADMIT Student in an Organized Health Care Education/Training Program; ATTEND Student in an Organized Health Care Education/Training Program

== ENCOUNTER 2021-01-25 08:53 | Inpatient (IN) ==
[2021-01-25] MEDS ORDERED: 0.9 % Sodium Chloride 1,000 ML IVC ONE (09:31)
[2021-01-25 09:55] LABS: Hematocrit 37.1 % (35.3-44.9); Mean Corpuscular HGB Conc 31.5 g/dL (31.6-35.5); Mean Corpuscular Hemoglobin 30.8 pg (28.0-33.3); Mean Corpuscular Volume 97.6 fL (83.0-100.0); Mean Platelet Volume 11.2 fL (9.4-12.4); Platelet Count 182 K/mcL (140-400); Red Cell Distribution Width 16.2 % (11.5-14.5); White Blood Count 16.8 K/mcL (4.3-11.1)
[2021-01-25 09:59] LABS: Hemoglobin 11.7 g/dL (11.5-15.4)
[2021-01-25 10:25] LABS: Calcium 9.5 mg/dL (8.6-10.3)
[2021-01-25 11:35] LABS: Clarity,Urine Cloudy (Clear); Color,Urine Red (Yellow)
[2021-01-25 11:50] LABS: Troponin I 0.06 ng/mL (< 0.04)
[2021-01-25] MEDS ORDERED: cefTRIAXone 1,000 MG in 0.9 % Sodium Chloride Mini Bag 100 ML IVPB ONE (12:05)
[2021-01-25] MEDS ORDERED: Naloxone 0.4 MG/ML INJ IVP PRN (14:12)
[2021-01-25] MEDS ORDERED: Ondansetron 4 MG/2 ML VIAL IVP PRN (14:12)
[2021-01-25] MEDS ORDERED: D5% in Water 1,000 ML IVC PRN (14:18)
[2021-01-25] MEDS ORDERED: *HR* Dextrose 50 % in Water (Vial) 50 ML VIAL IVP PRN (14:18)
[2021-01-25] MEDS ORDERED: Dextrose Gel 15 GM/37.5 ML TUBE PO PRN ×2 (14:18)
[2021-01-25] MEDS ORDERED: Insulin LISPRO 300 UNITS/3 ML VIAL SUBQ SCH ×3 (16:30→21:00)
[2021-01-25] MEDS: 0.9 % Sodium Chloride 1,000 ML IVC SCH (16:34)
[2021-01-25] MEDS ORDERED: Acetaminophen 325 MG TABLET PO PRN (16:54)
[2021-01-25 19:22] LABS: Bacteria,Urine Moderate per hpf (None-Few); Bilirubin,Urine Negative (Negative); Blood,Urine Large (Negative); Budding Yeast,Urine Few per hpf (None Seen); Clarity,Urine Turbid (Clear); Color,Urine Light-Orange (Yellow); Glucose,Urine (UA) Normal (Normal); Ketones,Urine Negative (Negative); Leukocyte Esterase,Urine Large (Negative); Nitrite,Urine Negative (Negative); Protein,Urine 70 mg/dL (Neg-Trace); RBC,Urine TNTC per hpf (0-3); Specific Gravity,Urine 1.012 (1.010-1.025); Squamous Epithelial Cell,Urine Moderate per hpf (None-Few); Urobilinogen,Urine Normal (Normal); WBC,Urine TNTC per hpf (0-3)
[2021-01-25] MEDS ORDERED: Acetaminophen IV 1,000 MG/100 ML BAG IVPB ONE (21:45)
[2021-01-25] MEDS: Insulin LISPRO 300 UNITS/3 ML VIAL SUBQ SCH (21:47)
[2021-01-26] MEDS ORDERED: Acetaminophen IV 1,000 MG/100 ML BAG IVPB ONE ×2 (04:53→10:01)
[2021-01-26] MEDS: 0.9 % Sodium Chloride 1,000 ML IVC SCH (06:19)
[2021-01-26 07:42] LABS: INR 2.2; Prothrombin Time 24.7 Seconds (9.4-12.1)
[2021-01-26 08:00] LABS: Albumin 3.2 g/dL (3.5-5.7); Albumin/Globulin Ratio 1.4 (1.1-2.2); Bilirubin,Total 1.3 mg/dL (0.3-1.0); Globulin 2.3 g/dL (2.4-3.5); Potassium 3.7 mEq/L (3.5-5.1); Total Protein 5.5 g/dL (6.4-8.9)
[2021-01-26 08:11] LABS: Basophils % 0.1 %; Eosinophils % 0.1 %; Hematocrit 33.6 % (35.3-44.9); Hemoglobin 10.8 g/dL (11.5-15.4); Immature Granulocytes % 0.6 % (0-4); Lymphocytes # 1.3 K/mcL (0.6-4.6); Lymphocytes % 9.2 %; Mean Corpuscular HGB Conc 32.1 g/dL (31.6-35.5); Mean Corpuscular Hemoglobin 30.8 pg (28.0-33.3); Mean Corpuscular Volume 95.7 fL (83.0-100.0); Mean Platelet Volume 11.4 fL (9.4-12.4); Monocytes # 1.1 K/mcL (0.0-1.3); Monocytes % 7.4 %; Platelet Count 163 K/mcL (140-400); Red Blood Count 3.51 M/mcL (3.82-4.97); Red Cell Distribution Width 15.9 % (11.5-14.5); Segmented Neutrophils % 82.6 %; White Blood Count 14.5 K/mcL (4.3-11.1)
[2021-01-26] MEDS: Insulin LISPRO 300 UNITS/3 ML VIAL SUBQ SCH ×4 (09:03→21:29)
[2021-01-26] MEDS: Metoprolol XL (24 HR) Succ 50 MG TAB.ER.24H PO SCH (09:20)
[2021-01-26] MEDS: allopurinoL 300 MG TABLET PO SCH (09:20)
[2021-01-26] MEDS ORDERED: *HR* OxyCODONE Immed Rel 5 MG TABLET PO PRN (10:38)
[2021-01-26] MEDS ORDERED: *HR* HYDROmorphone PF 0.5 MG/0.5 ML SYRINGE IVP PRN (10:38)
[2021-01-26] MEDS ORDERED: Ondansetron 4 MG/2 ML VIAL IVP PRN (10:40)
[2021-01-26] MEDS ORDERED: Promethazine 6.25 MG in Water for inj. (sterile) 20 ML IVPB PRN (10:40)
[2021-01-26] MEDS ORDERED: Perflutren Lipid Microsphere 1.3 ML in 0.9 % Sodium Chloride 8.7 ML IVP PRN (12:45)
[2021-01-26] MEDS: cefTRIAXone 1,000 MG in 0.9 % Sodium Chloride Mini Bag 100 ML IVPB SCH (13:15)
[2021-01-27 01:27] LABS: Basophils % 0.2 %; Eosinophils # 0.1 K/mcL (0.0-0.6); Hematocrit 31.1 % (35.3-44.9); Hemoglobin 10.4 g/dL (11.5-15.4); Immature Granulocytes % 0.3 % (0-4); Lymphocytes # 1.7 K/mcL (0.6-4.6); Lymphocytes % 16.3 %; Mean Corpuscular HGB Conc 33.4 g/dL (31.6-35.5); Mean Corpuscular Hemoglobin 31.8 pg (28.0-33.3); Mean Corpuscular Volume 95.1 fL (83.0-100.0); Mean Platelet Volume 11.4 fL (9.4-12.4); Monocytes # 0.9 K/mcL (0.0-1.3); Monocytes % 8.5 %; Neutrophils # 7.5 K/mcL (1.6-8.9); Platelet Count 148 K/mcL (140-400); Red Blood Count 3.27 M/mcL (3.82-4.97); Red Cell Distribution Width 15.7 % (11.5-14.5); Segmented Neutrophils % 73.7 %; White Blood Count 10.2 K/mcL (4.3-11.1)
[2021-01-27 01:45] LABS: Calcium 9.1 mg/dL (8.6-10.3); Potassium 3.5 mEq/L (3.5-5.1)
[2021-01-27] MEDS: Insulin LISPRO 300 UNITS/3 ML VIAL SUBQ SCH ×4 (07:59→21:19)
[2021-01-27] MEDS: Furosemide 40 MG TABLET PO SCH (08:53)
[2021-01-27] MEDS: allopurinoL 300 MG TABLET PO SCH (08:53)
[2021-01-27] MEDS: Metoprolol XL (24 HR) Succ 50 MG TAB.ER.24H PO SCH (08:53)
[2021-01-27] MEDS: polyethylene glycoL 3350 17 GM POWD.PACK PO SCH (10:06)
[2021-01-27] MEDS: cefTRIAXone 1,000 MG in 0.9 % Sodium Chloride Mini Bag 100 ML IVPB SCH (12:09)
[2021-01-28 01:52] LABS: Basophils % 0.3 %; Eosinophils # 0.1 K/mcL (0.0-0.6); Eosinophils % 1.8 %; Hematocrit 33.5 % (35.3-44.9); Immature Granulocytes % 0.5 % (0-4); Lymphocytes # 1.4 K/mcL (0.6-4.6); Lymphocytes % 17.3 %; Mean Corpuscular HGB Conc 32.8 g/dL (31.6-35.5); Mean Corpuscular Hemoglobin 31.6 pg (28.0-33.3); Mean Corpuscular Volume 96.3 fL (83.0-100.0); Mean Platelet Volume 11.1 fL (9.4-12.4); Monocytes # 0.8 K/mcL (0.0-1.3); Monocytes % 9.6 %; Neutrophils # 5.5 K/mcL (1.6-8.9); Platelet Count 174 K/mcL (140-400); Red Blood Count 3.48 M/mcL (3.82-4.97); Red Cell Distribution Width 15.7 % (11.5-14.5); Segmented Neutrophils % 70.5 %; White Blood Count 7.8 K/mcL (4.3-11.1)
[2021-01-28 02:12] LABS: Calcium 8.9 mg/dL (8.6-10.3); Potassium 3.7 mEq/L (3.5-5.1)
[2021-01-28] MEDS: Metoprolol XL (24 HR) Succ 50 MG TAB.ER.24H PO SCH (07:44)
[2021-01-28] MEDS: allopurinoL 300 MG TABLET PO SCH (07:44)
[2021-01-28] MEDS: Furosemide 40 MG TABLET PO SCH (07:44)
[2021-01-28] MEDS: polyethylene glycoL 3350 17 GM POWD.PACK PO SCH (07:45)
[2021-01-28] MEDS: Insulin LISPRO 300 UNITS/3 ML VIAL SUBQ SCH ×4 (07:46→22:24)
[2021-01-28 20:58] LABS: INR 1.6; Prothrombin Time 18.7 Seconds (9.4-12.1)
[2021-01-28] MEDS ORDERED: *HR* Warfarin 3 MG TABLET PO ONE (22:15)
[2021-01-29 05:38] LABS: Basophils % 0.1 %; Eosinophils # 0.1 K/mcL (0.0-0.6); Eosinophils % 1.8 %; Hematocrit 34.5 % (35.3-44.9); Hemoglobin 10.6 g/dL (11.5-15.4); Immature Granulocytes % 0.4 % (0-4); Lymphocytes # 1.6 K/mcL (0.6-4.6); Lymphocytes % 23.6 %; Mean Corpuscular HGB Conc 30.7 g/dL (31.6-35.5); Mean Corpuscular Hemoglobin 30.5 pg (28.0-33.3); Mean Corpuscular Volume 99.4 fL (83.0-100.0); Mean Platelet Volume 11.8 fL (9.4-12.4); Monocytes # 0.6 K/mcL (0.0-1.3); Monocytes % 9.3 %; Neutrophils # 4.3 K/mcL (1.6-8.9); Platelet Count 195 K/mcL (140-400); Red Blood Count 3.47 M/mcL (3.82-4.97); Red Cell Distribution Width 15.8 % (11.5-14.5); Segmented Neutrophils % 64.8 %; White Blood Count 6.7 K/mcL (4.3-11.1)
[2021-01-29 05:44] LABS: INR 1.6; Prothrombin Time 17.9 Seconds (9.4-12.1)
[2021-01-29 05:53] LABS: Calcium 9.1 mg/dL (8.6-10.3); Potassium 3.6 mEq/L (3.5-5.1)
[2021-01-29 07:11] VITALS: BP 119/63; PULSE 80; TEMP 98.5; O2SAT 97
[2021-01-29] MEDS: Metoprolol XL (24 HR) Succ 50 MG TAB.ER.24H PO SCH (07:40)
[2021-01-29] MEDS: allopurinoL 300 MG TABLET PO SCH (07:40)
[2021-01-29] MEDS: Insulin LISPRO 300 UNITS/3 ML VIAL SUBQ SCH ×2 (07:40→11:25)
[2021-01-29] MEDS: Furosemide 40 MG TABLET PO SCH (07:40)
[2021-01-29] MEDS: polyethylene glycoL 3350 17 GM POWD.PACK PO SCH (09:18)
[2021-01-29] MEDS ORDERED: *HR* Warfarin 1 MG TABLET PO ONE (18:00)
[2021-01-29] MEDS ORDERED: Warfarin perPT PO PRN (18:00)
== END 2021-01-29 16:11 | DRG 871 ==
LOC: 2ANU 08:53 → EMEROOARM 08:53 → SUATTDRO 13:17 → 2ANU 14:29
PROVIDERS: ADMIT Pharmacist; ATTEND Family Medicine

== ENCOUNTER 2022-03-31 18:19 | Inpatient (IN) ==
[2022-03-31 19:50] LABS: Basophils % 0.3 %; Eosinophils % 0.1 %; Hematocrit 43.1 % (35.3-44.9); Hemoglobin 13.6 g/dL (11.5-15.4); Immature Granulocytes % 0.8 % (0-4); Lymphocytes # 1.4 K/mcL (0.6-4.6); Mean Corpuscular HGB Conc 31.6 g/dL (31.6-35.5); Mean Corpuscular Hemoglobin 29.6 pg (28.0-33.3); Mean Corpuscular Volume 93.9 fL (83.0-100.0); Mean Platelet Volume 11.6 fL (9.4-12.4); Monocytes # 0.6 K/mcL (0.0-1.3); Monocytes % 3.8 %; Platelet Count 192 K/mcL (140-400); Red Blood Count 4.59 M/mcL (3.82-4.97); Red Cell Distribution Width 16.5 % (11.5-14.5)
[2022-03-31 19:54] LABS: Neutrophils # 12.2 K/mcL (1.6-8.9); White Blood Count 14.4 K/mcL (4.3-11.1)
[2022-03-31 20:02] LABS: Activated Partial Thrombo Time 42.4 Seconds (26.0-36.0)
[2022-03-31 20:06] LABS: Potassium 4.6 mEq/L (3.5-5.1)
[2022-03-31 20:07] LABS: Calcium 10.3 mg/dL (8.6-10.3)
[2022-03-31] MEDS ORDERED: 0.9 % Sodium Chloride 1,000 ML IVC ONE (20:32)
[2022-03-31 20:50] LABS: INR 1.8; Prothrombin Time 20.4 Seconds (9.4-12.1)
[2022-03-31 20:59] LABS: Troponin I 0.03 ng/mL (< 0.04)
[2022-03-31] MEDS ORDERED: Acetaminophen 325 MG TABLET PO ONE (21:12)
[2022-03-31 22:12] LABS: Influenza A PCR Negative (Negative); Influenza B PCR Negative (Negative); Resp. Syncytial Virus PCR Negative (Negative)
[2022-03-31 22:47] LABS: SARS-CoV-2 by PCR (In House) Negative (Negative)
[2022-03-31 23:08] LABS: Bilirubin,Urine Small (Negative); Blood,Urine Moderate (Negative); Clarity,Urine Clear (Clear); Color,Urine Yellow (Yellow); Glucose,Urine (UA) Normal (Normal); Ketones,Urine Trace mg/dL (Negative); Leukocyte Esterase,Urine Negative (Negative); Nitrite,Urine Negative (Negative); PH,Urine 5.5 pH Units (5.0-8.0); Protein,Urine 30 mg/dL (Neg-Trace); Specific Gravity,Urine >= 1.030 (1.010-1.025); Urobilinogen,Urine Normal (Normal)
[2022-03-31 23:15] LABS: Hyaline Casts,Urine Moderate per lpf (None Seen); Mucus,Urine Few per lpf (None-Few); RBC,Urine 30-50 per hpf (0-3); Squamous Epithelial Cell,Urine Few per hpf (None-Few); WBC,Urine 15-30 per hpf (0-3)
[2022-04-01] MEDS ORDERED: Furosemide 40 MG/4 ML VIAL IVP ONE (00:49)
[2022-04-01] MEDS ORDERED: Melatonin 3 MG TABLET PO PRN (00:59)
[2022-04-01] MEDS ORDERED: Naloxone 0.4 MG/ML INJ IVP PRN (00:59)
[2022-04-01] MEDS ORDERED: Ondansetron 4 MG/2 ML VIAL IVP PRN (00:59)
[2022-04-01] MEDS: Gabapentin 100 MG CAPSULE PO SCH ×2 (05:22→08:58)
[2022-04-01] MEDS: *HR* HYDROcodone/Acet 5/325 mg TABLET PO PRN ×2 (05:29→12:04)
[2022-04-01 05:49] LABS: Basophils % 0.2 %; Eosinophils % 0.1 %; Hematocrit 41.2 % (35.3-44.9); Hemoglobin 12.8 g/dL (11.5-15.4); Immature Granulocytes % 0.6 % (0-4); Lymphocytes # 1.3 K/mcL (0.6-4.6); Lymphocytes % 10.6 %; Mean Corpuscular HGB Conc 31.1 g/dL (31.6-35.5); Mean Corpuscular Hemoglobin 29.6 pg (28.0-33.3); Mean Corpuscular Volume 95.2 fL (83.0-100.0); Mean Platelet Volume 12.4 fL (9.4-12.4); Monocytes # 0.4 K/mcL (0.0-1.3); Monocytes % 3.3 %; Neutrophils # 10.7 K/mcL (1.6-8.9); Platelet Count 172 K/mcL (140-400); Red Blood Count 4.33 M/mcL (3.82-4.97); Red Cell Distribution Width 16.4 % (11.5-14.5); Segmented Neutrophils % 85.2 %; White Blood Count 12.5 K/mcL (4.3-11.1)
[2022-04-01 05:53] LABS: INR 1.7; Prothrombin Time 19.2 Seconds (9.4-12.1)
[2022-04-01 05:56] LABS: Activated Partial Thrombo Time 42.8 Seconds (26.0-36.0)
[2022-04-01 06:08] LABS: Albumin 3.9 g/dL (3.5-5.7); Albumin/Globulin Ratio 1.6 (1.1-2.2); Bilirubin,Total 2.9 mg/dL (0.3-1.0); Calcium 9.7 mg/dL (8.6-10.3); Globulin 2.5 g/dL (2.4-3.5); Phosphorous 4.3 mg/dL (2.7-4.5); Potassium 4.4 mEq/L (3.5-5.1); Total Protein 6.4 g/dL (6.4-8.9)
[2022-04-01 06:20] LABS: Thyroid Stimulating Hormone 2.229 mcIU/mL (0.340-5.600)
[2022-04-01] MEDS: Insulin DETEMIR 100 UNIT/ML X5UNITS SUBQ SCH (08:56)
[2022-04-01] MEDS: Metoprolol XL (24 HR) Succ 50 MG TAB.ER.24H PO SCH (08:58)
[2022-04-01] MEDS ORDERED: Furosemide 20 MG/2 ML VIAL IVP SCH (09:00)
[2022-04-01] MEDS ORDERED: Furosemide 40 MG TABLET PO SCH (09:00)
[2022-04-01] MEDS: Insulin LISPRO 300 UNITS/3 ML VIAL SUBQ SCH ×6 (09:01→16:44)
[2022-04-01] MEDS: Ipratropium/Albuterol Neb 3 ML IH SCH ×3 (09:26→22:39)
[2022-04-01] MEDS ORDERED: Gabapentin 100 MG CAPSULE PO SCH (15:00)
[2022-04-01] MEDS: Acetaminophen 325 MG TABLET PO PRN (17:09)
[2022-04-01] MEDS ORDERED: Warfarin perPT PO PRN (18:00)
[2022-04-01] MEDS ORDERED: *HR* Warfarin 2 MG TABLET PO ONE (18:00)
[2022-04-01] MEDS ORDERED: INSULIN DETEMIR 100 UNIT/ML SQ SCH (21:00)
[2022-04-02] MEDS: Furosemide 40 MG TABLET PO SCH ×2 (00:08→11:04)
[2022-04-02] MEDS: *HR* HYDROcodone/Acet 5/325 mg TABLET PO PRN ×2 (00:11→11:08)
[2022-04-02 03:20] LABS: Basophils % 0.1 %; Eosinophils # 0.1 K/mcL (0.0-0.6); Eosinophils % 0.7 %; Hematocrit 35.9 % (35.3-44.9); Hemoglobin 11.4 g/dL (11.5-15.4); Immature Granulocytes % 0.5 % (0-4); Lymphocytes # 1.5 K/mcL (0.6-4.6); Lymphocytes % 18.3 %; Mean Corpuscular HGB Conc 31.8 g/dL (31.6-35.5); Mean Corpuscular Hemoglobin 29.8 pg (28.0-33.3); Mean Corpuscular Volume 93.7 fL (83.0-100.0); Mean Platelet Volume 11.5 fL (9.4-12.4); Monocytes # 0.5 K/mcL (0.0-1.3); Monocytes % 6.3 %; Platelet Count 105 K/mcL (140-400); Red Blood Count 3.83 M/mcL (3.82-4.97); Red Cell Distribution Width 16.5 % (11.5-14.5); Segmented Neutrophils % 74.1 %; White Blood Count 8.1 K/mcL (4.3-11.1)
[2022-04-02 03:38] LABS: INR 2.1; Prothrombin Time 23.6 Seconds (9.4-12.1)
[2022-04-02 03:47] LABS: Calcium 9.4 mg/dL (8.6-10.3); Potassium 4.2 mEq/L (3.5-5.1)
[2022-04-02] MEDS: Ipratropium/Albuterol Neb 3 ML IH SCH ×4 (03:48→21:23)
[2022-04-02] MEDS: Insulin LISPRO 300 UNITS/3 ML VIAL SUBQ SCH ×6 (08:24→19:26)
[2022-04-02] MEDS: Metoprolol XL (24 HR) Succ 50 MG TAB.ER.24H PO SCH (08:24)
[2022-04-02] MEDS: Insulin DETEMIR 100 UNIT/ML X5UNITS SUBQ SCH (08:29)
[2022-04-02] MEDS: Sennosides/Docusate Sodium TABLET PO SCH ×2 (11:05→22:37)
[2022-04-02] MEDS ORDERED: Insulin LISPRO 300 UNITS/3 ML VIAL SUBQ SCH (12:00)
[2022-04-02] MEDS: Acetaminophen 325 MG TABLET PO PRN ×2 (14:59→22:37)
[2022-04-02] MEDS ORDERED: 0.9 % Sodium Chloride 1,000 ML IV ONE (15:39)
[2022-04-02 15:47] LABS: ABG Base Excess -5 mEq/L (-2 to 3); ABG HCO3 22 mEq/L (21-27); ABG Oxygen Saturation 100 % (95-98); ABG PCO2 45 mmHg (35-45); ABG PO2 273 mmHg (85-104); ABG TCO2 23 mEq/L (20-26)
[2022-04-02 16:07] LABS: Albumin 3.5 g/dL (3.5-5.7); Albumin/Globulin Ratio 1.8 (1.1-2.2); Bilirubin,Total 1.9 mg/dL (0.3-1.0); Potassium 4.3 mEq/L (3.5-5.1); Total Protein 5.5 g/dL (6.4-8.9)
[2022-04-02] MEDS: Albumin Human 5% 12.5 GM/250 ML IV.SOLN IVC SCH ×2 (16:13→20:22)
[2022-04-02] MEDS ORDERED: Furosemide 40 MG/4 ML VIAL IVP ONE (16:15)
[2022-04-02 16:21] LABS: Troponin I 0.04 ng/mL (< 0.04)
[2022-04-02 16:29] LABS: Hematocrit 37.9 % (35.3-44.9)
[2022-04-02] MEDS ORDERED: *HR* Warfarin 3 MG TABLET PO ONE (18:00)
[2022-04-03] MEDS: *HR* HYDROcodone/Acet 5/325 mg TABLET PO PRN ×2 (04:40→16:53)
[2022-04-03 04:50] LABS: Basophils % 0.2 %; Eosinophils # 0.1 K/mcL (0.0-0.6); Eosinophils % 0.7 %; Hematocrit 33.5 % (35.3-44.9); Hemoglobin 10.6 g/dL (11.5-15.4); Immature Granulocytes % 0.4 % (0-4); Lymphocytes # 1.2 K/mcL (0.6-4.6); Lymphocytes % 14.4 %; Mean Corpuscular HGB Conc 31.6 g/dL (31.6-35.5); Mean Corpuscular Hemoglobin 29.9 pg (28.0-33.3); Mean Corpuscular Volume 94.4 fL (83.0-100.0); Mean Platelet Volume 12.3 fL (9.4-12.4); Monocytes # 0.6 K/mcL (0.0-1.3); Monocytes % 7.3 %; Neutrophils # 6.2 K/mcL (1.6-8.9); Platelet Count 106 K/mcL (140-400); Red Blood Count 3.55 M/mcL (3.82-4.97); Red Cell Distribution Width 16.5 % (11.5-14.5); White Blood Count 8.1 K/mcL (4.3-11.1)
[2022-04-03 05:05] LABS: INR 2.4; Prothrombin Time 26.2 Seconds (9.4-12.1)
[2022-04-03 05:10] LABS: Calcium 9.7 mg/dL (8.6-10.3); Potassium 3.9 mEq/L (3.5-5.1)
[2022-04-03] MEDS: allopurinoL 300 MG TABLET PO SCH (08:45)
[2022-04-03] MEDS: Metoprolol XL (24 HR) Succ 50 MG TAB.ER.24H PO SCH (08:45)
[2022-04-03] MEDS: Sennosides/Docusate Sodium TABLET PO SCH ×2 (08:45→20:46)
[2022-04-03] MEDS: Insulin LISPRO 300 UNITS/3 ML VIAL SUBQ SCH ×6 (08:47→16:56)
[2022-04-03] MEDS ORDERED: Furosemide 40 MG TABLET PO SCH (09:00)
[2022-04-03] MEDS ORDERED: calcitrioL 0.25 MCG CAPSULE PO SCH (09:00)
[2022-04-03] MEDS ORDERED: amLODIPine 5 MG TABLET PO SCH ×2 (09:00→10:30)
[2022-04-03] MEDS ORDERED: Metoprolol XL (24 HR) Succ 50 MG TAB.ER.24H PO SCH (09:00)
[2022-04-03] MEDS ORDERED: polyethylene glycoL 3350 17 GM POWD.PACK PO PRN (09:10)
[2022-04-03] MEDS ORDERED: Furosemide 40 MG/4 ML VIAL IVP ONE (10:22)
[2022-04-03] MEDS ORDERED: amLODIPine 5 MG TABLET PO ONE (10:42)
[2022-04-03] MEDS: Insulin DETEMIR 100 UNIT/ML X5UNITS SUBQ SCH (10:55)
[2022-04-03] MEDS: Acetaminophen 325 MG TABLET PO PRN (12:58)
[2022-04-03] MEDS ORDERED: MOM Conc 10 ML UD.LIQ PO PRN (13:35)
[2022-04-03] MEDS ORDERED: *HR* Warfarin 3 MG TABLET PO ONE (18:00)
[2022-04-04] MEDS: Insulin LISPRO 300 UNITS/3 ML VIAL SUBQ SCH ×6 (08:05→16:52)
[2022-04-04] MEDS: Insulin DETEMIR 100 UNIT/ML X5UNITS SUBQ SCH (08:07)
[2022-04-04] MEDS: Sennosides/Docusate Sodium TABLET PO SCH ×2 (08:08→20:11)
[2022-04-04] MEDS: allopurinoL 300 MG TABLET PO SCH (08:08)
[2022-04-04] MEDS: Metoprolol XL (24 HR) Succ 50 MG TAB.ER.24H PO SCH (08:08)
[2022-04-04] MEDS: *HR* HYDROcodone/Acet 5/325 mg TABLET PO PRN ×2 (08:27→16:54)
[2022-04-04 08:42] LABS: Basophils % 0.1 %; Eosinophils # 0.1 K/mcL (0.0-0.6); Eosinophils % 0.9 %; Hematocrit 35.6 % (35.3-44.9); Hemoglobin 11.4 g/dL (11.5-15.4); Immature Granulocytes % 0.3 % (0-4); Lymphocytes # 1.3 K/mcL (0.6-4.6); Lymphocytes % 13.7 %; Mean Corpuscular Hemoglobin 30.2 pg (28.0-33.3); Mean Corpuscular Volume 94.2 fL (83.0-100.0); Monocytes # 0.6 K/mcL (0.0-1.3); Monocytes % 6.4 %; Neutrophils # 7.6 K/mcL (1.6-8.9); Platelet Count 107 K/mcL (140-400); Red Blood Count 3.78 M/mcL (3.82-4.97); Red Cell Distribution Width 16.5 % (11.5-14.5); Segmented Neutrophils % 78.6 %; White Blood Count 9.7 K/mcL (4.3-11.1)
[2022-04-04 08:49] LABS: INR 2.8; Prothrombin Time 31.4 Seconds (9.4-12.1)
[2022-04-04] MEDS ORDERED: amLODIPine 5 MG TABLET PO SCH (09:00)
[2022-04-04 09:01] LABS: Calcium 9.7 mg/dL (8.6-10.3)
[2022-04-04] MEDS ORDERED: amLODIPine 5 MG TABLET PO ONE (10:40)
[2022-04-04] MEDS ORDERED: *HR* Warfarin 2 MG TABLET PO ONE (18:00)
[2022-04-04 20:14] VITALS: O2SAT 97
[2022-04-04 22:56] VITALS: BP 114/56; PULSE 77; TEMP 98.1
== END 2022-04-05 00:30 | disposition short-term general hospital (02) | DRG 280 ==
LOC: 2ANU 18:19 → EMEROOARM 18:19 → SUATTDRO 04-01 03:43 → 2ANU 04-01 04:37 → SUATTDRO 04-02 12:46 → 2NNU 04-02 17:32
PROVIDERS: ADMIT Internal Medicine; ATTEND Internal Medicine